=== PATIENT | male | born 1965 | race Caucasian/White ===

== ENCOUNTER → 2016-10-06 | Outpatient (CLI) | payer OTHER ==
--- NOTE | 2016-10-06 08:01 | CT ---
EXAMINATION TYPE: CT brain wo/w con DATE OF EXAM: 10/06/2016 COMPARISON: Previous study dated 10/27/2014 HISTORY: Head injury CT DLP: 2208 mGycm Automated exposure control for dose reduction was used. CONTRAST: CT scan of the head is performed with IV Contrast, patient injected with 100 mL of Omnipaque 300. FINDINGS: Central structures are midline. There is no evidence of hydrocephalus. No acute focal lesion, mass ef fect or midline shift is seen. I do not see evidence of intracranial blood. Following intravenous administration of contrast, I do not see evidence of abnormal enhancement. Visualized portions of the paranasal sinuses and mastoids are clear. No depressed skull fracture is s een. Middle and inner ear structures appear normal. IMPRESSION: Normal CT scan of the brain with and without intravenous contrast.
== END | disposition home or self-care (01) ==
LOC: RADCTMAIN 07:10
PROVIDERS: ATTEND Family Medicine
DX: R11.2 Nausea with vomiting, unspecified (principal); Z87.820 Personal history of traumatic brain injury
CPT/HCPCS: 70470; Q9967

== ENCOUNTER → 2016-10-06 | Outpatient (CLI) | payer OTHER ==
--- NOTE | 2016-10-06 08:28 | XR ---
EXAMINATION TYPE: XR hand complete bilateral, XR wrist complete BILATERAL DATE OF EXAM ORDERED: 10/06/2016 HISTORY: M06.4 inflammatory polyarthropathy. COMPARISON: None. FINDINGS: Both wrists appear normal. There is no fracture or dislocation. The joint spaces are maint ained. The carpal bones are unremarkable. Osseous structures about both hands also appear normal. There is no fracture or dislocation. Joint sp aces are maintained. No erosive lesions are seen. Bone mineral density is maintained. IMPRESSION: NORMAL BILATERAL WRISTS AND HANDS.
[2016-10-06 08:31] LABS: Basophils % (A) 0 %; CH 29.8; CHCM 34.6; Eosinophils # (A) 0.2 k/uL (0-0.7); Eosinophils % (A) 2 %; HCT 49.1 % (39.0-53.0); HDW 2.69; HGB 16.9 gm/dL (13.0-17.5); Luc # (Auto) 0.13; Luc % (Auto) 1; Lymphocytes # (A) 1.9 k/uL (1.0-4.8); Lymphocytes % (A) 20 %; MCH 29.8 pg (25.0-35.0); MCHC 34.5 g/dL (31.0-37.0); MCV 86.4 fL (80.0-100.0); Monocytes # (A) 0.4 k/uL (0-1.0); Monocytes % (A) 4 %; Neutrophils # (A) 6.9 k/uL (1.3-7.7); Neutrophils % (A) 72 %; RBC 5.68 m/uL (4.30-5.90); RDW 12.9 % (11.5-15.5); WBC 9.5 k/uL (3.8-10.6); WBC (Perox) 9.71
[2016-10-06 09:24] LABS: C Reactive Protein 5.7 mg/L (<10.0); Non-African American GFR(MDRD) >60 (>60 ml/min/1.73 sqM)
[2016-10-06 09:30] LABS: Rheumatoid Factor, Qnt <9 IU/mL (<12)
[2016-10-06 11:07] LABS: Erythrocyte Sedimentation Rate 6 mm/hr (0-15)
[2016-10-06 16:06] LABS: ANA w/Reflex to Titer NEGATIVE (NEGATIVE)
[2016-10-07 11:34] LABS: Glucose-6-Phosphate Dehydrogen 10.8 U/g Hgb (7.0-20.5)
== END | disposition home or self-care (01) ==
LOC: RADXRMAIN 07:23
PROVIDERS: ATTEND Internal Medicine Rheumatology
DX: M79.641 Pain in right hand (principal); M79.642 Pain in left hand; M06.4 Inflammatory polyarthropathy; E11.9 Type 2 diabetes mellitus without complications; M54.5 Low back pain; F17.210 Nicotine dependence, cigarettes, uncomplicated; I10 Essential (primary) hypertension
CPT/HCPCS: 70470; 82565; 82955; 85025; 85652; 86038; 86140; 86160; 86200; 86225; 86431

== ENCOUNTER 2016-12-16 11:42 | Inpatient (IN) | payer OTHER ==
[2016-12-16] MEDS ORDERED: NITROGLYCERIN SL TABS 0.4 MG TAB SUBLINGUAL PRN ×2 (11:52→13:17)
[2016-12-16] MEDS ORDERED: MORPHINE SULFATE 4 MG/ML SYRINGE IV PRN (11:52)
[2016-12-16] MEDS ORDERED: HEPARIN SODIUM,PORCINE 5,000 UNIT/ML 1 ML VIAL IV PRN (11:52)
[2016-12-16] MEDS ORDERED: HEPARIN SODIUM,PORCINE 5,000 UNIT/ML 1 ML VIAL IV ONE (11:52)
[2016-12-16] MEDS ORDERED: ASPIRIN 81 MG PO STA (11:52)
[2016-12-16] MEDS ORDERED: HEPARIN SODIUM,PORCINE 5,000 UNIT/ML 1 ML VIAL IV STA (11:53)
--- NOTE | 2016-12-16 11:56 | ED ---
General Adult HPI - General Chief complaint: Chest Pain Stated complaint: Stemi Time Seen by Provider: 12/16/16 11:50 Source: EMS, RN notes reviewed, old records reviewed Mode of arrival: EMS Limitations: no limitations - History of Present Illness Initial comments: This is a 51-year-old male to the ER for evaluation. This patient presents for evaluation regarding chest pain. Anterior chest pain and heaviness which was relieved by nitro in route. Patient has history of high blood pressure and diabetes. No prior history of heart disease. Patient stated this time is chest pain is there but has improved or decreased. Patient has no fever cough or congestion, no significant shortness of breath currently. Symptoms started about a half-hour prior to arrival - Related Data Home Medications Medication Instructions Recorded Confirmed Baclofen [Lioresal] 10 mg PO TID PRN 12/16/16 12/16/16 Hydroxychloroquine Sulfate 200 mg PO BID 12/16/16 12/16/16 [Plaquenil] Lisinopril-Hctz 20-25 mg 1 tab PO DAILY 12/16/16 12/16/16 [Zestoretic 20-25] Pravastatin Sodium [Pravachol] 40 mg PO HS 12/16/16 12/16/16 amLODIPine BESYLATE [Norvasc] 10 mg PO DAILY 12/16/16 12/16/16 Allergies Allergy/AdvReac Type Severity Reaction Status Date / Time No Known Allergies Allergy Verified 12/16/16 11:47 Review of Systems ROS Statement: Those systems with pertinent positive or pertinent negative responses have been documented in the HPI. ROS Other: All systems not noted in ROS Statement are negative. Past Medical History Past Medical History: Diabetes Mellitus, Hyperlipidemia, Hypertension History of Any Multi-Drug Resistant Organisms: None Reported Past Surgical History: No Surgical Hx Reported Past Psychological History: Depression Smoking Status: Current every day smoker Past Alcohol Use History: None Reported Past Drug Use History: None Reported General Exam Limitations: no limitations General appearance: alert, in no apparent distress Head exam: Present: atraumatic, normocephalic, normal inspection Eye exam: Present: normal appearance, PERRL, EOMI. Absent: scleral icterus, conjunctival injection, periorbital swelling ENT exam: Present: normal exam, mucous membranes moist Neck exam: Present: normal inspection. Absent: tenderness, meningismus, lymphadenopathy Respiratory exam: Present: normal lung sounds bilaterally. Absent: respiratory distress, wheezes, rales, rhonchi, stridor Cardiovascular Exam: Present: regular rate, normal rhythm, normal heart sounds. Absent: systolic murmur, diastolic murmur, rubs, gallop, clicks GI/Abdominal exam: Present: soft, normal bowel sounds. Absent: distended, tenderness, guarding, rebound, rigid Extremities exam: Present: normal inspection, full ROM, normal capillary refill. Absent: tenderness, pedal edema, joint swelling, calf tenderness Back exam: Present: normal inspection Neurological exam: Present: alert, oriented X3, CN II-XII intact Psychiatric exam: Present: normal affect, normal mood Skin exam: Present: warm, dry, intact, normal color. Absent: rash Course Vital Signs 12/16/16 12/16/16 12/16/16 11:44 11:47 11:51 Temperature 97.9 F Pulse Rate 61 93 Respiratory 20 20 Rate Blood Pressure 102/50 135/80 O2 Sat by Pulse 97 97 Oximetry 12/16/16 12:00 Temperature Pulse Rate 86 Respiratory Rate Blood Pressure 144/73 O2 Sat by Pulse 98 Oximetry - Reevaluation(s) Reevaluation #1: Code STEMI was paged, patient seen in the ER by cardiac , taken to operating room for PCI EKG Findings - EKG Comments: EKG Findings:: EKG shows normal sinus over 62, pO2 of 60, QRS 160, QTC 410, [address] elevation Medical Decision Making - Medical Decision Making 51 male to the ED co cp history of diabetes and high blood pressure. She has EKG showing ST elevation, [facility] or ST elevation, patient will be taken to emergency room for urgent heart catheterization regarding ST elevated RI - Lab Data Result diagrams: 12/16/16 11:56 12/16/16 11:56 Lab Results 12/16/16 12/16/16 12/16/16 Range/Units 11:56 11:56 11:56 WBC 14.9 H (3.8-10.6) k/uL RBC 5.18 (4.30-5.90) m/uL Hgb 15.8 (13.0-17.5) gm/dL Hct 44.8 (39.0-53.0) % MCV 86.5 (80.0-100.0) fL MCH 30.5 (25.0-35.0) pg MCHC 35.3 (31.0-37.0) g/dL RDW 13.3 (11.5-15.5) % Plt Count 306 (150-450) k/uL Neutrophils % 87 % Lymphocytes % 8 % Monocytes % 3 % Eosinophils % 1 % Basophils % 0 % Neutrophils # 13.0 H (1.3-7.7) k/uL Lymphocytes # 1.2 (1.0-4.8) k/uL Monocytes # 0.5 (0-1.0) k/uL Eosinophils # 0.1 (0-0.7) k/uL Basophils # 0.1 (0-0.2) k/uL PT 10.7 (9.0-12.0) sec INR 1.1 (<1.2) APTT 23.1 (22.0-30.0) sec Sodium 144 (137-145) mmol/L Potassium 4.0 (3.5-5.1) mmol/L Chloride 109 H (98-107) mmol/L Carbon Dioxide 23 (22-30) mmol/L Anion Gap 12 mmol/L BUN 12 (9-20) mg/dL Creatinine 0.59 L (0.66-1.25) mg/dL Est GFR (MDRD) Af Amer >60 (>60 ml/min/1.73 sqM) Est GFR (MDRD) Non-Af >60 (>60 ml/min/1.73 sqM) Glucose 168 H (74-99) mg/dL Calcium 9.8 (8.4-10.2) mg/dL Magnesium 1.7 (1.6-2.3) mg/dL Total Bilirubin 0.4 (0.2-1.3) mg/dL AST 19 (17-59) U/L ALT 36 (21-72) U/L Alkaline Phosphatase 84 (38-126) U/L Total Creatine Kinase (55-170) U/L CK-MB (CK-2) (0.0-2.4) ng/mL CK-MB (CK-2) Rel Index Troponin I (0.000-0.034) ng/mL Total Protein 6.8 (6.3-8.2) g/dL Albumin 4.2 (3.5-5.0) g/dL 12/16/16 Range/Units 11:56 WBC (3.8-10.6) k/uL RBC (4.30-5.90) m/uL Hgb (13.0-17.5) gm/dL Hct (39.0-53.0) % MCV (80.0-100.0) fL MCH (25.0-35.0) pg MCHC (31.0-37.0) g/dL RDW (11.5-15.5) % Plt Count (150-450) k/uL Neutrophils % % Lymphocytes % % Monocytes % % Eosinophils % % Basophils % % Neutrophils # (1.3-7.7) k/uL Lymphocytes # (1.0-4.8) k/uL Monocytes # (0-1.0) k/uL Eosinophils # (0-0.7) k/uL Basophils # (0-0.2) k/uL PT (9.0-12.0) sec INR (<1.2) APTT (22.0-30.0) sec Sodium (137-145) mmol/L Potassium (3.5-5.1) mmol/L Chloride (98-107) mmol/L Carbon Dioxide (22-30) mmol/L Anion Gap mmol/L BUN (9-20) mg/dL Creatinine (0.66-1.25) mg/dL Est GFR (MDRD) Af Amer (>60 ml/min/1.73 sqM) Est GFR (MDRD) Non-Af (>60 ml/min/1.73 sqM) Glucose (74-99) mg/dL Calcium (8.4-10.2) mg/dL Magnesium (1.6-2.3) mg/dL Total Bilirubin (0.2-1.3) mg/dL AST (17-59) U/L ALT (21-72) U/L Alkaline Phosphatase (38-126) U/L Total Creatine Kinase 150 (55-170) U/L CK-MB (CK-2) 1.7 (0.0-2.4) ng/mL CK-MB (CK-2) Rel Index 1.1 Troponin I 0.042 H* (0.000-0.034) ng/mL Total Protein (6.3-8.2) g/dL Albumin (3.5-5.0) g/dL - Radiology Data Radiology results: report reviewed (Chest x-ray is negative for acute disease), image reviewed Critical Care Time Critical Care Time: Yes Total Critical Care Time: 31 Disposition Clinical Impression: ST elevation myocardial infarction (STEMI) Disposition: ADMITTED IP TO THIS HOSP Condition: Serious Referrals: Sari Mcmahan DO [Primary Care Provider] - 1-2 days
[2016-12-16] MEDS: ATORVASTATIN 80 MG TAB PO SCH (11:58)
[2016-12-16 12:08] LABS: Basophils # (A) 0.1 k/uL (0-0.2); Basophils % (A) 0 %; CH 29.5; CHCM 34.3; Eosinophils # (A) 0.1 k/uL (0-0.7); Eosinophils % (A) 1 %; HCT 44.8 % (39.0-53.0); HDW 2.64; HGB 15.8 gm/dL (13.0-17.5); Luc # (Auto) 0.09; Luc % (Auto) 1; Lymphocytes # (A) 1.2 k/uL (1.0-4.8); Lymphocytes % (A) 8 %; MCH 30.5 pg (25.0-35.0); MCHC 35.3 g/dL (31.0-37.0); MCV 86.5 fL (80.0-100.0); Mean Platelet Volume 6.8; Monocytes # (A) 0.5 k/uL (0-1.0); Monocytes % (A) 3 %; Neutrophils % (A) 87 %; RBC 5.18 m/uL (4.30-5.90); RDW 13.3 % (11.5-15.5); WBC 14.9 k/uL (3.8-10.6); WBC (Perox) 14.82
--- NOTE | 2016-12-16 12:14 | XR ---
EXAMINATION TYPE: XR chest 1V portable DATE OF EXAM: 12/16/2016 COMPARISON: Chest x-ray December 24, 2007 HISTORY: Chest pain today. TECHNIQUE: Single AP portable frontal upright view of the chest is obtained. FINDINGS: Improved inspiration is seen on current study. There is no focal air space opacity, pleura l effusion, or pneumothorax seen. The cardiac silhouette size is upper limits of normal. The osseo us structures are intact. IMPRESSION: No acute process.
[2016-12-16] MEDS ORDERED: MIDAZOLAM 2 MG/2 ML VIAL ONE (12:18)
[2016-12-16 12:19] LABS: ALT 36 U/L (21-72); AST 19 U/L (17-59); Alkaline Phosphatase 84 U/L (38-126); Anion Gap 12 mmol/L; Blood Urea Nitrogen 12 mg/dL (9-20); Calcium 9.8 mg/dL (8.4-10.2); Carbon Dioxide 23 mmol/L (22-30); Chloride 109 mmol/L (98-107); Glucose 168 mg/dL (74-99); Magnesium 1.7 mg/dL (1.6-2.3); Non-African American GFR(MDRD) >60 (>60 ml/min/1.73 sqM); Sodium 144 mmol/L (137-145); Total Bilirubin 0.4 mg/dL (0.2-1.3); Total Protein 6.8 g/dL (6.3-8.2)
[2016-12-16] MEDS ORDERED: LIDOCAINE 2% INJ 20 MG/ML SQ ONE (12:22)
[2016-12-16] MEDS ORDERED: MIDAZOLAM 2 MG/2 ML VIAL IV ONE (12:23)
[2016-12-16] MEDS ORDERED: SODIUM CHLORIDE 0.9% 1,000 ML IV ONE (12:23)
[2016-12-16] MEDS ORDERED: BIVALIRUDIN BOLUS 250 MG/50 ML IV ONE (12:30)
[2016-12-16] MEDS ORDERED: BIVALIRUDIN 250 MG in SODIUM CHLORIDE 0.9% 50 ML IV ONE (12:31)
[2016-12-16 12:37] LABS: INR 1.1 (<1.2); Partial Thromboplastin Time 23.1 sec (22.0-30.0); Prothrombin Time 10.7 sec (9.0-12.0)
[2016-12-16 12:46] LABS: Creatine Kinase MB 1.7 ng/mL (0.0-2.4)
[2016-12-16] MEDS ORDERED: NITROGLYCERIN 1000MCG/10ML SYRINGE INTRACORON ONE (12:50)
[2016-12-16 12:53] LABS: Troponin I 0.042 ng/mL (0.000-0.034)
[2016-12-16] MEDS ORDERED: ATROPINE SULFATE 0.1 MG/ML 10ML SYRINGE IV ONE (12:57)
[2016-12-16] MEDS ORDERED: IOHEXOL 350 MG/ML 125ML BOTTLE INJ ONE (13:05)
[2016-12-16] MEDS ORDERED: PRASUGREL 10 MG TAB ONE (13:07)
[2016-12-16] MEDS ORDERED: PRASUGREL 10 MG TAB PO ONE (13:08)
[2016-12-16] MEDS ORDERED: MAG HYDROX/AL HYDROX/SIMETH 30 ML CUP PO PRN (13:17)
[2016-12-16] MEDS ORDERED: RX INFO: IV CONTRAST WAS GIVEN 1 EACH MISC MISCELLANE PRN (13:17)
[2016-12-16] MEDS ORDERED: ATROPINE SULFATE 0.1 MG/ML 10ML SYRINGE IV PRN (13:17)
[2016-12-16] MEDS ORDERED: ZOLPIDEM 5 MG TAB PO PRN (13:17)
--- NOTE | 2016-12-16 13:21 | P.CRDCN ---
History of Present Illness Consult date: 12/16/16 History of present illness: This is a pleasant 51-year-old gentleman with a past medical history significant for diabetes, hypertension, dyslipidemia, presented to the emergency room complaining of chest discomfort. He was found to be an acute inferior ST elevation myocardial infarction but subsequently he underwent an emergent heart catheterization and was found to have an acute total occlusion of the PLV branch of the RCA, critical disease involving the mid left circumflex , and occluded mid LAD. The patient underwent successful stenting of the PLV of RCA with good angiographic results using drug-eluting stent and without any complication. By the end of the procedure, the patient was chest pain-free. The blood pressure has been marginally low. Past Medical History Past Medical History: Diabetes Mellitus, Hyperlipidemia, Hypertension History of Any Multi-Drug Resistant Organisms: None Reported Past Surgical History: No Surgical Hx Reported Past Psychological History: Depression Smoking Status: Current every day smoker Past Alcohol Use History: None Reported Past Drug Use History: None Reported Medications and Allergies Home Medications Medication Instructions Recorded Confirmed Type Baclofen [Lioresal] 10 mg PO TID PRN 12/16/16 12/16/16 History Hydroxychloroquine Sulfate 200 mg PO BID 12/16/16 12/16/16 History [Plaquenil] Lisinopril-Hctz 20-25 mg 1 tab PO DAILY 12/16/16 12/16/16 History [Zestoretic 20-25] Pravastatin Sodium [Pravachol] 40 mg PO HS 12/16/16 12/16/16 History amLODIPine BESYLATE [Norvasc] 10 mg PO DAILY 12/16/16 12/16/16 History Allergies Allergy/AdvReac Type Severity Reaction Status Date / Time No Known Allergies Allergy Verified 12/16/16 11:47 Physical Exam Vitals: Vital Signs Temp Pulse Resp BP Pulse Ox 12/16/16 12:00 86 144/73 98 12/16/16 11:51 93 20 135/80 97 12/16/16 11:47 102/50 12/16/16 11:44 97.9 F 61 20 97 Intake and Output 12/15/16 12/16/16 12/16/16 22:59 06:59 14:59 Intake Total 390.5 Balance 390.5 Intake: IV 390.5 Other: Weight 94.5 kg Patient Weight 08/12/17 06:59 Weight 94.5 kg - Constitutional General appearance: no acute distress - Respiratory Respiratory: bilateral: CTA - Cardiovascular Rhythm: regular Heart sounds: normal: S1, S2 Results 12/16/16 11:56 12/16/16 11:56 Cardiac Enzymes 12/16/16 12/16/16 Range/Units 11:56 11:56 AST 19 (17-59) U/L CK-MB (CK-2) 1.7 (0.0-2.4) ng/mL Troponin I 0.042 H* (0.000-0.034) ng/mL Coagulation 12/16/16 Range/Units 11:56 PT 10.7 (9.0-12.0) sec APTT 23.1 (22.0-30.0) sec CBC 12/16/16 Range/Units 11:56 WBC 14.9 H (3.8-10.6) k/uL RBC 5.18 (4.30-5.90) m/uL Hgb 15.8 (13.0-17.5) gm/dL Hct 44.8 (39.0-53.0) % Plt Count 306 (150-450) k/uL Comprehensive Metabolic Panel 12/16/16 Range/Units 11:56 Sodium 144 (137-145) mmol/L Potassium 4.0 (3.5-5.1) mmol/L Chloride 109 H (98-107) mmol/L Carbon Dioxide 23 (22-30) mmol/L BUN 12 (9-20) mg/dL Creatinine 0.59 L (0.66-1.25) mg/dL Glucose 168 H (74-99) mg/dL Calcium 9.8 (8.4-10.2) mg/dL AST 19 (17-59) U/L ALT 36 (21-72) U/L Alkaline Phosphatase 84 (38-126) U/L Total Protein 6.8 (6.3-8.2) g/dL Albumin 4.2 (3.5-5.0) g/dL Current Medications Generic Name Dose Route Start Last Admin Trade Name Freq PRN Reason Stop Dose Admin Al Hydroxide/Mg Hydroxide 30 ml 12/16/16 13:17 Maalox PO Q4HR PRN Heartburn Aspirin 325 mg 12/17/16 09:00 Aspirin PO DAILY MICHAELA Atorvastatin Calcium 80 mg 12/16/16 21:00 Lipitor PO HS MICHAELA Atropine Sulfate 0.5 mg 12/16/16 13:17 Atropine IV ONCE PRN Symptomatic Bradycardia Lisinopril 10 mg 12/17/16 09:00 Zestril PO DAILY MICHAELA Intake and Output 12/15/16 12/16/16 12/16/16 22:59 06:59 14:59 Intake Total 390.5 Balance 390.5 Intake: IV 390.5 Other: Weight 94.5 kg Patient Weight 12/17/16 06:59 Weight 94.5 kg 12/16/16 11:56 12/16/16 11:56 Assessment and Plan Plan: This is a pleasant 51-year-old gentleman who was diagnosed with acute inferior ST elevation myocardial infarction and underwent stenting of the RCA. We'll continue dual antiplatelet therapy as well as statin. Monitor the blood pressure very closely and hold the metoprolol and lisinopril for any systolic blood pressure below 90. We'll obtain an echocardiogram to assess the LV function and for wall motion abnormalities. The patient down the line need to have a PCI of the LAD.
[2016-12-16] MEDS ORDERED: SODIUM CHLORIDE 0.9% 1,000 ML IV SCH (13:30)
[2016-12-16] MEDS ORDERED: HYDROmorphone 1 MG/ML 1 ML SYRINGE ONE (13:46)
[2016-12-16] MEDS ORDERED: HYDROmorphone 1 MG/ML 1 ML SYRINGE IVP STA (13:57)
[2016-12-16 15:02] LABS: Glucose,Whole Blood 108 mg/dL (75-99)
[2016-12-16 15:47] LABS: Glucose,Whole Blood 112 mg/dL (75-99)
[2016-12-16] MEDS: HEPARIN SODIUM,PORCINE/D5W PMX 25,000 UNIT in DEXTROSE/WATER 1 500ML.BAG IV SCH (15:57)
[2016-12-16] MEDS ORDERED: HYDROcodone/APAP 5-325MG 1 EACH TAB PO PRN (17:11)
[2016-12-16] MEDS ORDERED: BACLOFEN 10 MG TAB PO PRN (17:13)
[2016-12-16 17:22] LABS: Glucose,Whole Blood 102 mg/dL (75-99)
[2016-12-16] MEDS: INSULIN LISPRO (humaLOG) 300 UNIT/3 ML VIAL SQ SCH ×2 (17:55→20:00)
[2016-12-16] MEDS: HYDROmorphone 1 MG/ML 1 ML SYRINGE IVP PRN (17:55)
[2016-12-16 18:54] LABS: Troponin I 59.9 ng/mL (0.000-0.034)
--- NOTE | 2016-12-16 19:36 | ECHOF ---
Referral Reason:stemi MEASUREMENTS -------- HEIGHT: 177.8 cm WEIGHT: 94.3 kg BP: 112/68 RVIDd: 2.3 cm (< 3.3) IVSd: 1.2 cm (0.6 - 1.1) LVIDd: 4.7 cm (3.9 - 5.3) LVPWd: 1.2 cm (0.6 - 1.1) IVSs: 1.7 cm LVIDs: 3.7 cm LVPWs: 1.2 cm LAESV Index (A-L): 28.17 ml/m Ao Diam: 3.0 cm (2.0 - 3.7) AV Cusp: 1.4 cm (1.5 - 2.6) LA Diam: 2.5 cm (2.7 - 3.8) MV E Shailesh: 0.81 m/s MV DecT: 272 ms MV A Shailesh: 0.71 m/s MV E/A Ratio: 1.15 AV maxP.40 mmHg AV meanP.38 mmHg RAP: 5.00 mmHg RVSP: 10.82 mmHg FINDINGS -------- Sinus rhythm. This was a technically adequate study. There is mild concentric left ventricular hypertrophy. Overall left ventricular systolic function is mildly impaired with, an EF between 45 - 50 %. Basal inferior LV wall motion is akinetic. The right ventricle is normal in size and function. Normal LA size by volume 22+/-6 ml/m2. The right atrium is normal in size. 1.5mg of Definity was utilized for enhancement of images Aortic valve is trileaflet and is mildly thickened. There is no evidence of aortic regurgitation. There is mild aortic stenosis present. The mitral valve leaflets are mildly thickened. There is trace to mild mitral regurgitation. Trace tricuspid regurgitation present. There is no evidence of pulmonary hypertension. The right ventricular systolic pressure, as measured by Doppler, is 10.82mmHg. The pulmonic valve was not well visualized. The aortic root size is normal. Normal inferior vena cava with normal inspiratory collapse consistent with estimated right atrial pressure of 5 mmHg. The pericardium is normal. There is no pericardial effusion. CONCLUSIONS -------- 1. Sinus rhythm. 2. There is trace to mild mitral regurgitation. 3. Trace tricuspid regurgitation present. 4. There is no evidence of pulmonary hypertension. 5. The right ventricular systolic pressure, as measured by Doppler, is 10.82mmHg. 6. The pulmonic valve was not well visualized. 7. The aortic root size is normal. 8. There is no pericardial effusion. 9. This was a technically adequate study. 10. There is mild concentric left ventricular hypertrophy. 11. Basal inferior LV wall motion is akinetic. 12. Normal LA size by volume 22+/-6 ml/m2. 13. 1.5mg of Definity was utilized for enhancement of images 14. Aortic valve is trileaflet and is mildly thickened. 15. There is mild aortic stenosis present. 16. The mitral valve leaflets are mildly thickened. CHIEF CREATIVE OFFICER: Jose Juarez RDCS
[2016-12-16 20:00] LABS: Glucose,Whole Blood 170 mg/dL (75-99)
[2016-12-16] MEDS: HYDROXYCHLOROQUINE SULFATE 200 MG TAB PO SCH (20:00)
[2016-12-16] MEDS: INSULIN GLARGINE 100 UNIT/ML 10 ML VIAL SQ SCH (20:06)
[2016-12-16] MEDS ORDERED: Magnesium Replacement Protocol 1 EACH MISC MISCELLANE PRN (20:21)
[2016-12-16 20:53] LABS: Hemoglobin A1C 9.7 % (4.2-6.1)
[2016-12-16] MEDS: MAGNESIUM SULFATE-D5W PMX 1 GM in DEXTROSE/WATER 1 100ML.BAG IVPB SCH ×2 (20:58→22:15)
[2016-12-16] MEDS ORDERED: METOPROLOL TARTRATE 25 MG TAB PO SCH ×3 (21:00)
[2016-12-16] MEDS ORDERED: ATORVASTATIN 80 MG TAB PO SCH (21:00)
[2016-12-16] MEDS: METOPROLOL TARTRATE 12.5 MG TAB PO SCH (21:53)
[2016-12-17] MEDS: HYDROmorphone 1 MG/ML 1 ML SYRINGE IVP PRN ×3 (00:47→20:28)
[2016-12-17 04:34] LABS: Appearance,Urine Clear (Clear); Bilirubin,Urine Negative (Negative); Glucose,Urine (UA) 4+ (Negative); Ketones,Urine Negative (Negative); Leukocyte Esterase,Urine Negative (Negative); Mucus,Urine Occasional /hpf; Nitrite,Urine Negative (Negative); Particle Count 4830; Protein,Urine Negative (Negative); RBC,Urine 1 /hpf (0-5); Specific Gravity,Urine >1.050 (1.001-1.035); Squamous Epithelial Cell,Urine <1 /hpf (0-4); UA Billing (MACRO vs. MICRO) MICRO; Urobilinogen,Urine <2.0 mg/dL (<2.0); WBC,Urine 1 /hpf (0-5)
[2016-12-17 04:49] LABS: Basophils % (A) 0 %; CH 29.7; CHCM 33.7; Eosinophils # (A) 0.2 k/uL (0-0.7); Eosinophils % (A) 2 %; HCT 41.9 % (39.0-53.0); HDW 2.62; HGB 14.2 gm/dL (13.0-17.5); Luc # (Auto) 0.16; Luc % (Auto) 1; Lymphocytes # (A) 2.3 k/uL (1.0-4.8); Lymphocytes % (A) 18 %; MCH 29.9 pg (25.0-35.0); MCHC 33.8 g/dL (31.0-37.0); MCV 88.5 fL (80.0-100.0); Monocytes # (A) 0.6 k/uL (0-1.0); Monocytes % (A) 4 %; Neutrophils # (A) 9.3 k/uL (1.3-7.7); Neutrophils % (A) 74 %; RBC 4.74 m/uL (4.30-5.90); RDW 13.6 % (11.5-15.5); WBC 12.6 k/uL (3.8-10.6); WBC (Perox) 13.57
[2016-12-17 04:59] LABS: Anion Gap 10 mmol/L; Blood Urea Nitrogen 11 mg/dL (9-20); Calcium 9.1 mg/dL (8.4-10.2); Carbon Dioxide 24 mmol/L (22-30); Chloride 107 mmol/L (98-107); Glucose 148 mg/dL (74-99); Non-African American GFR(MDRD) >60 (>60 ml/min/1.73 sqM); Potassium 3.6 mmol/L (3.5-5.1); Sodium 141 mmol/L (137-145)
[2016-12-17] MEDS ORDERED: Potassium Replacement Protocol 1 EACH MISC MISCELLANE PRN (05:14)
[2016-12-17] MEDS ORDERED: POTASSIUM CHLORIDE ER 20 MEQ TAB.ER PO SCH (06:00)
[2016-12-17 07:29] LABS: Glucose,Whole Blood 145 mg/dL (75-99)
[2016-12-17] MEDS: ASPIRIN 325 MG TAB PO SCH (08:20)
[2016-12-17] MEDS: PRASUGREL 10 MG TAB PO SCH (08:20)
[2016-12-17] MEDS: HYDROXYCHLOROQUINE SULFATE 200 MG TAB PO SCH ×2 (08:20→21:48)
[2016-12-17] MEDS: LISINOPRIL 10 MG TAB PO SCH (08:20)
[2016-12-17] MEDS: METOPROLOL TARTRATE 12.5 MG TAB PO SCH ×2 (08:20→21:48)
[2016-12-17] MEDS: NICOTINE 14MG/24HR PATCH TRANSDERM SCH (08:21)
[2016-12-17] MEDS: INSULIN LISPRO (humaLOG) 300 UNIT/3 ML VIAL SQ SCH ×3 (08:22→17:30)
[2016-12-17] MEDS ORDERED: ASPIRIN 325 MG TAB PO SCH ×2 (09:00)
[2016-12-17 09:51] VITALS: BMI 29.9
[2016-12-17 11:45] LABS: Glucose,Whole Blood 228 mg/dL (75-99)
--- NOTE | 2016-12-17 11:50 | HP ---
CHIEF COMPLAINT: Chest pain. HISTORY OF PRESENT ILLNESS: This 56-year-old gentleman with the past medical history of multiple medical problems including diabetes, hypertension, hyperlipidemia and rheumatoid arthritis, being followed by Dr. Reyes in the outpatient, had chest pain. The pain was in the anterior part of the chest which was heavy in character, radiating to the back. The patient got some nitro with some relief. The EKG showed acute hyper inferior wall changes and the patient underwent a cardiac catheterization and stenting by cardiology. The patient was admitted for further evaluation and treatment. There is no history of any fever, rigors or chills. No lightheadedness, dizziness, loss of consciousness or seizures. PAST MEDICAL HISTORY: Diabetes mellitus type 2, hypertension, hyperlipidemia, rheumatoid arthritis. MEDICATIONS PRIOR TO ADMISSION: 1. Norvasc 10 mg p.o. daily. 2. Pravachol 40 mg q.h.s. 3. Plaquenil 200 mg p.o. b.i.d. 4. Lioresal 20 mg t.i.d. p.r.n. ALLERGIES: None. FAMILY HISTORY: History of diabetes mellitus and hypertension in the family. SOCIAL HISTORY: History of current smoking. No history of alcohol intake. REVIEW OF SYSTEMS: ENT: No diminished hearing or vision. CARDIOVASCULAR: As mentioned earlier. RESPIRATORY: As mentioned earlier. GI: No nausea. : No dysuria. NERVOUS SYSTEM: No numbness or weakness. IMMUNOLOGY/ALLERGY: No asthma, hayfever. MUSCULOSKELETAL: As mentioned earlier. HEMATOLOGY: No history of anemia. ENDOCRINE: No history of diabetes or hypothyroidism. CONSTITUTIONAL: noted PSYCHIATRIC: As mentioned earlier. PHYSICAL EXAMINATION: Alert and oriented x3. Pulse 53, blood pressure 92/51, respirations 16, temperature 97.8, pulse ox 96% on room air. HEENT: Conjunctivae normal. Oral mucosa moist. NECK: No jugular venous distention. No thyroid enlargement, no lymph node enlargement. CARDIOVASCULAR: S1/.S2 muffled. RESPIRATIONS: Diminished breath sounds, especially at the bases. Scattered rhonchi. No crackles. ABDOMEN: Soft, nontender. No mass palpable. LEGS: No edema, no swelling. NERVOUS SYSTEM: Higher function as mentioned earlier. Moves all four limbs. No focal motor or sensory deficits. LYMPHATICS. No lymph node palpable in neck or axillae. SKIN: No rash. LABS: WBC 14.9. Otherwise, creatinine 0.59, glucose 169, troponin 0.042. ASSESSMENT: 1. Hyperacute ST segment elevation inferior wall myocardial infarction status post cardiac catheterization and stenting. 2. Troponin 0.042. 3. Diabetes mellitus type 2. 4. History of nicotine dependence. 5. Increased WBC. 6. Hypertension. 7. Hyperlipidemia. 8. History of rheumatoid arthritis. 9. Depression. RECOMMENDATIONS AND DISCUSSION: In this 51-year-old gentleman who presented with multiple complex medical issues, we will monitor the patient closely, continue the current medication, continue symptomatic treatment. Otherwise, will resume the home medications and monitor patient closely. Will continue with current medications. Will repeat the labs. Smoking cessation advised. Closely follow with cardiology. Prognosis guarded because of multiple complex medical issues. Further recommendations to follow. See orders for the details. MTDD
[2016-12-17] MEDS: HEPARIN SODIUM,PORCINE/D5W PMX 25,000 UNIT in DEXTROSE/WATER 1 500ML.BAG IV SCH (13:34)
--- NOTE | 2016-12-17 15:07 | PCN ---
DATE OF SERVICE: 12/16/2016 PERFORMING PHYSICIAN: Don Pham MD, Event Planning Manager PROCEDURE PERFORMED: 1. Selective right and left coronary angiogram. 2. Left heart catheterization. 3. Successful stenting of the PLV branch of the RCA using 3.25 x 18 mm Xience MARQUEZ with good angiographic results. INDICATIONS: This is a pleasant 51-year-old gentleman who is known to have diabetes, hypertension, dyslipidemia who presented to the hospital with chest discomfort and was found to be in acute inferior ST-elevation myocardial infarction. Emergent heart catheterization was recommended. APPROACH: Right common femoral artery. COMPLICATIONS: None. LEVEL OF SEDATION: Moderate with sedation length of 55 minutes. PROCEDURE DESCRIPTION: After obtaining informed consent the patient was brought to the Cardiac Director Ehs. The right femoral artery was cannulated using micropuncture technique. The micropuncture wire was passed easily and then I placed a 6-Surinamese sheath in the right common femoral artery. Subsequently I did selective right and left coronary angiogram using JR4 and JL4.5 catheters. After that I decided to left heart catheterization using 6-Surinamese pigtail catheter and then I did intervene on the RCA. As a matter of fact, intervention on the RCA was performed before the left heart catheterization. The procedure was completed without any complication. SELECTIVE CORONARY ANGIOGRAM: 1. The right coronary artery is a large caliber vessel and is a dominant vessel. The proximal and mid-RCA has mild disease only with RCA distally has mild disease only and bifurcates into PDA and PLV branches The PDA branch appeared to be angiographically normal and the PLV branch appeared to be occluded acutely in the very proximal portion. 2. The left main is angiographically normal. It bifurcates into the left circumflex and left anterior descending artery. 3. The left circumflex is a large caliber vessel and is a nondominant vessel. The proximal circumflex appeared to have mild disease only and gives rise into large OM branch which appeared to have mild disease only. The mid circumflex appeared to be subtotally occluded. The circ becomes small caliber vessel and goes only in the AV groove. 4. The left anterior descending artery: The proximal LAD appeared to be angiographically normal and gives rise into the first diag branch which appeared to be large moderate caliber vessel with mild disease only. The mid- LAD appeared to be occluded in the proximal mid portion on a short segment. HEMODYNAMICS: The left ventricular end-diastolic pressure was 18 mmHg. No gradient was identified across the aortic valve. PCI TO RCA: Anticoagulation was initiated using Angiomax. Subsequently, after that we took KH4 guiding catheter and the right coronary artery was engaged. Whisper wire was used to wire the right coronary artery. Subsequently I did PTCA ballooning initially using 2.0 x 12 and then 3.0 x 12 mm balloon. Subsequently I deployed 3.25 x 18 mm Xience MARQUEZ where the stent was positioned under fluoroscopy guidance and deployed under 14 atmospheres for 20 seconds. The following angiogram showed good angiographic results. The procedure was completed without any complications. CONCLUSION: 1. Acute inferior ST elevation myocardial infarction. 2. Acute total occlusion of the PLV branch of the RCA. 3. Subtotally occluded mid-left circumflex, but it is small caliber vessel and goes only in the AV groove. 4. Chronic total occlusion of the mid-LAD. POSTPROCEDURE MANAGEMENT: 1. PCI of the LAD down the line. 2. Dual antiplatelet therapy and statin. 3. Follow up with the patient. EDWARD
[2016-12-17 17:48] LABS: Glucose,Whole Blood 174 mg/dL (75-99)
--- NOTE | 2016-12-17 19:56 | P.PN ---
Subjective Principal diagnosis: STEMI This is a pleasant 51-year-old gentleman with a past medical history significant for diabetes, hypertension, dyslipidemia, presented to the emergency room complaining of chest discomfort. He was found to be an acute inferior ST elevation myocardial infarction but subsequently he underwent an emergent heart catheterization and was found to have an acute total occlusion of the PLV branch of the RCA, critical disease involving the mid left circumflex , and occluded mid LAD. The patient underwent successful stenting of the PLV of RCA with good angiographic results using drug-eluting stent and without any complication. He needs PCI of the LAD Objective - Vital Signs Vital signs: Vital Signs Temp 97.8 F 12/17/16 18:05 Pulse 60 12/17/16 18:05 Resp 20 12/17/16 18:05 BP 148/93 12/17/16 18:05 Pulse Ox 99 12/17/16 18:05 Intake & Output 12/17/16 12/17/16 12/18/16 06:59 18:59 06:59 Intake Total 1100 900 Output Total 300 900 Balance 800 0 Weight 94.8 kg 94.8 kg Intake: IV 900 Magnesium Sulfate-D5w Pmx 300 1 gm In Dextrose/Water 1 100ml.bag @ 100 mls/hr IVPB Q1H MICHAELA Rx#: [id number] Sodium Chloride 0.9% 1, 600 000 ml @ 100 mls/hr IV . Q10H MICHAELA Rx#:[id number] Intake, IV Titration 100 Amount Sodium Chloride 0.9% 1, 100 000 ml @ 100 mls/hr IV . Q10H MICHAELA Rx#:[id number] Oral 100 900 Output: Urine 300 900 Other: Voiding Method Urinal Urinal # Voids 0 0 # Bowel Movements 1 - Constitutional General appearance: Present: no acute distress - Respiratory Respiratory: bilateral: CTA - Cardiovascular Rhythm: regular Heart sounds: normal: S1, S2 - Labs CBC & Chem 7: 12/17/16 04:19 12/17/16 04:19 Labs: Abnormal Lab Results - Last 24 Hours (Table) 12/16/16 12/16/16 12/17/16 Range/Units 11:56 19:58 04:02 WBC (3.8-10.6) k/uL Neutrophils # (1.3-7.7) k/uL Creatinine (0.66-1.25) mg/dL Glucose (74-99) mg/dL POC Glucose (mg/dL) 170 H (75-99) mg/dL Hemoglobin A1c 9.7 H (4.2-6.1) % Troponin I (0.000-0.034) ng/mL TSH (0.465-4.680) mIU/L Ur Specific [place] >1.050 H (1.001-1.035) Urine Glucose (UA) 4+ H (Negative) Urine Blood Small H (Negative) Urine Mucus Occasional H (None) /hpf 12/17/16 12/17/16 12/17/16 Range/Units 04:19 04:19 04:19 WBC 12.6 H (3.8-10.6) k/uL Neutrophils # 9.3 H (1.3-7.7) k/uL Creatinine 0.59 L (0.66-1.25) mg/dL Glucose 148 H (74-99) mg/dL POC Glucose (mg/dL) (75-99) mg/dL Hemoglobin A1c (4.2-6.1) % Troponin I 42.000 H* (0.000-0.034) ng/mL TSH (0.465-4.680) mIU/L Ur Specific [place] (1.001-1.035) Urine Glucose (UA) (Negative) Urine Blood (Negative) Urine Mucus (None) /hpf 12/17/16 12/17/16 12/17/16 Range/Units 04:19 07:27 11:44 WBC (3.8-10.6) k/uL Neutrophils # (1.3-7.7) k/uL Creatinine (0.66-1.25) mg/dL Glucose (74-99) mg/dL POC Glucose (mg/dL) 145 H 228 H (75-99) mg/dL Hemoglobin A1c (4.2-6.1) % Troponin I (0.000-0.034) ng/mL TSH 0.422 L (0.465-4.680) mIU/L Ur Specific [place] (1.001-1.035) Urine Glucose (UA) (Negative) Urine Blood (Negative) Urine Mucus (None) /hpf 12/17/16 Range/Units 17:29 WBC (3.8-10.6) k/uL Neutrophils # (1.3-7.7) k/uL Creatinine (0.66-1.25) mg/dL Glucose (74-99) mg/dL POC Glucose (mg/dL) 174 H (75-99) mg/dL Hemoglobin A1c (4.2-6.1) % Troponin I (0.000-0.034) ng/mL TSH (0.465-4.680) mIU/L Ur Specific [place] (1.001-1.035) Urine Glucose (UA) (Negative) Urine Blood (Negative) Urine Mucus (None) /hpf Assessment and Plan Plan: This is a pleasant 51-year-old gentleman who was diagnosed with acute inferior ST elevation myocardial infarction and underwent stenting of the RCA. We'll continue dual antiplatelet therapy as well as statin. Monitor the blood pressure very closely and hold the metoprolol and lisinopril for any systolic blood pressure below 90. We'll obtain an echocardiogram to assess the LV function and for wall motion abnormalities. The patient down the line need to have a PCI of the LAD.
[2016-12-17 21:12] LABS: Glucose,Whole Blood 160 mg/dL (75-99)
[2016-12-17] MEDS: INSULIN GLARGINE 100 UNIT/ML 10 ML VIAL SQ SCH (21:47)
[2016-12-18] MEDS: INSULIN LISPRO (humaLOG) 300 UNIT/3 ML VIAL SQ SCH ×5 (00:04→22:25)
[2016-12-18] MEDS: HYDROmorphone 1 MG/ML 1 ML SYRINGE IVP PRN ×3 (03:40→18:54)
[2016-12-18 05:53] LABS: Glucose,Whole Blood 95 mg/dL (75-99)
[2016-12-18 07:26] LABS: CH 30.5; CHCM 33.8; HCT 42.4 % (39.0-53.0); HDW 2.55; HGB 13.7 gm/dL (13.0-17.5); MCH 29.4 pg (25.0-35.0); MCHC 32.4 g/dL (31.0-37.0); MCV 90.9 fL (80.0-100.0); Mean Platelet Volume 7.9; RBC 4.67 m/uL (4.30-5.90); WBC 12.4 k/uL (3.8-10.6)
[2016-12-18 07:41] LABS: Anion Gap 8 mmol/L; Blood Urea Nitrogen 12 mg/dL (9-20); Calcium 9.2 mg/dL (8.4-10.2); Carbon Dioxide 27 mmol/L (22-30); Chloride 108 mmol/L (98-107); Glucose 90 mg/dL (74-99); Non-African American GFR(MDRD) >60 (>60 ml/min/1.73 sqM); Potassium 3.9 mmol/L (3.5-5.1); Sodium 143 mmol/L (137-145)
[2016-12-18] MEDS: METOPROLOL TARTRATE 12.5 MG TAB PO SCH ×2 (08:12→22:25)
[2016-12-18] MEDS: ATORVASTATIN 80 MG TAB PO SCH (08:12)
[2016-12-18] MEDS: HYDROXYCHLOROQUINE SULFATE 200 MG TAB PO SCH ×2 (08:12→22:25)
[2016-12-18] MEDS: NICOTINE 14MG/24HR PATCH TRANSDERM SCH (08:12)
[2016-12-18] MEDS: ASPIRIN 325 MG TAB PO SCH (08:12)
[2016-12-18] MEDS: PRASUGREL 10 MG TAB PO SCH (08:12)
[2016-12-18] MEDS: LISINOPRIL 10 MG TAB PO SCH (08:12)
--- NOTE | 2016-12-18 09:21 | P.PN ---
Subjective Principal diagnosis: STEMI This is a pleasant 51-year-old gentleman with a past medical history significant for diabetes, hypertension, dyslipidemia, presented to the emergency room complaining of chest discomfort. He was found to be an acute inferior ST elevation myocardial infarction but subsequently he underwent an emergent heart catheterization and was found to have an acute total occlusion of the PLV branch of the RCA, critical disease involving the mid left circumflex , and occluded mid LAD. The patient underwent successful stenting of the PLV of RCA with good angiographic results using drug-eluting stent and without any complication. On follow-up with him today, he denies having any chest pain or discomfort or difficulty breathing. He has been maintaining normal sinus mechanism. Objective - Vital Signs Vital signs: Vital Signs Temp 98.1 F 12/18/16 08:00 Pulse 65 12/18/16 08:00 Resp 16 12/18/16 08:00 BP 131/81 12/18/16 08:00 Pulse Ox 97 12/18/16 08:00 Intake & Output 12/17/16 12/18/16 12/18/16 18:59 06:59 18:59 Intake Total 900 300 240 Output Total 900 Balance 0 300 240 Weight 94.8 kg 108 kg Intake: Oral 900 300 240 Output: Urine 900 Other: Voiding Method Urinal Urinal Urinal # Voids 0 2 # Bowel Movements 1 - Constitutional General appearance: Present: no acute distress - Respiratory Respiratory: bilateral: CTA - Cardiovascular Rhythm: regular Heart sounds: normal: S1, S2 - Labs CBC & Chem 7: 12/18/16 07:05 12/18/16 07:05 Labs: Abnormal Lab Results - Last 24 Hours (Table) 12/17/16 12/17/16 12/17/16 Range/Units 04:19 11:44 17:29 WBC (3.8-10.6) k/uL Chloride (98-107) mmol/L Creatinine (0.66-1.25) mg/dL POC Glucose (mg/dL) 228 H 174 H (75-99) mg/dL TSH 0.422 L (0.465-4.680) mIU/L 12/17/16 12/18/16 12/18/16 Range/Units 21:04 07:05 07:05 WBC 12.4 H (3.8-10.6) k/uL Chloride 108 H (98-107) mmol/L Creatinine 0.65 L (0.66-1.25) mg/dL POC Glucose (mg/dL) 160 H (75-99) mg/dL TSH (0.465-4.680) mIU/L Assessment and Plan Plan: This is a pleasant 51-year-old gentleman who was diagnosed with acute inferior ST elevation myocardial infarction and underwent stenting of the RCA. He continues to be asymptomatic. He continues to be in normal sinus mechanism. He continues to be on dual antiplatelet therapy along with a statin. He needs to have a PCI of the LAD either during this admission or as an outpatient.
[2016-12-18 11:54] LABS: Glucose,Whole Blood 205 mg/dL (75-99)
--- NOTE | 2016-12-18 14:23 | PN ---
DATE OF SERVICE: 12/17/2016 This 51-year-old gentleman who was admitted with acute inferior wall myocardial infarction underwent successful stenting of the PLV branch of the RCA. The PCI of the LAD was planned down the line. The patient is dual antiplatelet treatment at this time. Dr. Pham is following the patient closely. PAST MEDICAL HISTORY: Reviewed. Medications are reviewed and include: 1. [place] 5 mg q.6 p.r.n 2. Maalox. 3. Aspirin 325 mg. 4. Lipitor 80 mg. 6. Heparin. 7. Plaquenil. 8. Lantus. 9. Lopressor. PHYSICAL EXAMINATION: The patient is alert and oriented x3. Pulse is 57, blood pressure 120/79, respirations 20, temperature normal, pulse ox 94% on room air. HEENT: Conjunctivae normal. NECK: No jugular venous distention. CARDIOVASCULAR: S1, S2. RESPIRATORY: Breath sounds diminished at the bases. Scattered rhonchi and crackles. ABDOMEN: Soft, nontender. LEGS: No edema, no swelling. NERVOUS SYSTEM: No focal deficits. LABS: CBC within normal limits and glucose 148. UA noted. Otherwise troponin 42. ASSESSMENT: 1. Acute inferior wall myocardial infarction with ST-segment elevation, status post cardiac catheterization and stenting of the PLV branch of the right coronary artery. 2. Left ascending artery stenosis. 3. Troponin 42, acute myocardial infarction. 4. Diabetes mellitus type 2. 5. History of nicotine dependence. 6. Increased WBC. 7. Hypertension. 8. Hyperlipidemia. 9. History of rheumatoid arthritis. RECOMMENDATIONS AND DISCUSSION: I recommend to continue the current medications, continue symptomatic treatment. Otherwise continue with antiplatelet agents. Also recommend TSH. Other than that increase ambulation. Further recommendations per Cardiology. Guarded prognosis. Further recommendations to follow. See orders for details. MTDD
[2016-12-18 16:45] LABS: Glucose,Whole Blood 245 mg/dL (75-99)
[2016-12-18 21:16] LABS: Glucose,Whole Blood 208 mg/dL (75-99)
[2016-12-18] MEDS: INSULIN GLARGINE 100 UNIT/ML 10 ML VIAL SQ SCH (22:25)
[2016-12-19] MEDS: HYDROmorphone 1 MG/ML 1 ML SYRINGE IVP PRN ×4 (00:56→22:49)
[2016-12-19 06:23] LABS: Glucose,Whole Blood 100 mg/dL (75-99)
[2016-12-19] MEDS: INSULIN LISPRO (humaLOG) 300 UNIT/3 ML VIAL SQ SCH ×4 (06:53→20:53)
[2016-12-19] MEDS: ASPIRIN 325 MG TAB PO SCH (07:54)
[2016-12-19] MEDS: HYDROXYCHLOROQUINE SULFATE 200 MG TAB PO SCH ×2 (07:55→20:34)
[2016-12-19] MEDS: METOPROLOL TARTRATE 12.5 MG TAB PO SCH ×2 (07:55→20:35)
[2016-12-19] MEDS: LISINOPRIL 10 MG TAB PO SCH (07:55)
[2016-12-19] MEDS: ATORVASTATIN 80 MG TAB PO SCH (07:55)
[2016-12-19] MEDS: PRASUGREL 10 MG TAB PO SCH (07:55)
[2016-12-19] MEDS: NICOTINE 14MG/24HR PATCH TRANSDERM SCH (07:56)
[2016-12-19] MEDS ORDERED: SODIUM CHLORIDE 0.9% 1,000 ML in EMPTY BAG 1 BAG IV ONE (08:41)
[2016-12-19] MEDS ORDERED: ATORVASTATIN 80 MG TAB PO STA (08:41)
[2016-12-19] MEDS ORDERED: NITROGLYCERIN SL TABS 0.4 MG TAB SUBLINGUAL PRN ×2 (08:41→14:40)
[2016-12-19] MEDS ORDERED: ALPRAZolam 0.25 MG TAB PO PRN (08:41)
[2016-12-19] MEDS ORDERED: ALPRAZolam 0.5 MG TAB PO PRN (08:41)
[2016-12-19] MEDS ORDERED: ASPIRIN 325 MG TAB PO STA (08:41)
[2016-12-19 12:05] LABS: Glucose,Whole Blood 84 mg/dL (75-99)
[2016-12-19] MEDS ORDERED: LIDOCAINE 2% INJ 20 MG/ML (20 ML MDV) ONE (13:26)
[2016-12-19] MEDS ORDERED: MIDAZOLAM 2 MG/2 ML VIAL ONE (13:37)
--- NOTE | 2016-12-19 13:37 | PN ---
DATE OF SERVICE: 12/18/2016 This 51-year-old gentleman who was admitted with acute inferior wall myocardial infarction, had cardiac catheterization and stenting of the PLV branch. Cardiology is following the patient closely and tentatively planning LAD stenting during this patient or as outpatient. No chest pain, no palpitations. No fever. On exam, alert and oriented x3. Pulse 72, blood pressure 126/74, respirations 18 , temperature 97.7, pulse ox 98% on room air. HEENT: Conjunctivae normal. NECK: No jugular venous distention. CARDIOVASCULAR: S1, S2. RESPIRATORY: Breath sounds diminished at the bases. No rhonchi, no crackles. ABDOMEN: Soft, nontender. LEGS: No edema, no swelling. NERVOUS SYSTEM: No focal deficits. LABS: WBC 12.4. ASSESSMENT: 1. Acute inferior wall myocardial infarction with ST-segment elevation status post cardiac catheterization and stenting of the PLV branch of right coronary artery. 2. Left anterior coronary artery disease stenosis. 3. Troponin 42, acute myocardial infarction. 4. Diabetes mellitus type 2. 5. Nicotine dependence. RECOMMENDATIONS AND DISCUSSION: I recommend to continue the current medications, continue symptomatic treatment. Continue with antiplatelet agents. Monitor blood sugars closely. Further recommendations to follow. MTDD
[2016-12-19] MEDS ORDERED: MIDAZOLAM 2 MG/2 ML VIAL IV ONE (13:57)
[2016-12-19] MEDS ORDERED: LIDOCAINE 2% INJ 20 MG/ML SQ ONE (13:59)
[2016-12-19] MEDS ORDERED: BIVALIRUDIN BOLUS 250 MG/50 ML IV ONE (14:00)
[2016-12-19] MEDS ORDERED: BIVALIRUDIN 250 MG in SODIUM CHLORIDE 0.9% 50 ML IV ONE ×2 (14:01→14:36)
[2016-12-19] MEDS ORDERED: IV FLUID CONTINUATION 1,000 ML IV ONE (14:07)
[2016-12-19] MEDS ORDERED: MAG HYDROX/AL HYDROX/SIMETH 30 ML CUP PO PRN (14:40)
[2016-12-19] MEDS ORDERED: RX INFO: IV CONTRAST WAS GIVEN 1 EACH MISC MISCELLANE PRN (14:40)
[2016-12-19] MEDS ORDERED: ZOLPIDEM 5 MG TAB PO PRN (14:40)
[2016-12-19] MEDS ORDERED: ATROPINE SULFATE 0.1 MG/ML 10ML SYRINGE IV PRN (14:40)
[2016-12-19] MEDS ORDERED: SODIUM CHLORIDE 0.9% 1,000 ML IV SCH (14:45)
[2016-12-19] MEDS ORDERED: IOHEXOL 350 MG/ML 125ML BOTTLE INJ ONE (14:59)
[2016-12-19 17:14] LABS: Glucose,Whole Blood 78 mg/dL (75-99)
[2016-12-19] MEDS: INSULIN GLARGINE 100 UNIT/ML 10 ML VIAL SQ SCH (20:46)
[2016-12-19 20:54] LABS: Glucose,Whole Blood 206 mg/dL (75-99)
[2016-12-20 06:08] LABS: Glucose,Whole Blood 95 mg/dL (75-99)
[2016-12-20 06:38] LABS: Non-African American GFR(MDRD) >60 (>60 ml/min/1.73 sqM)
[2016-12-20] MEDS: INSULIN LISPRO (humaLOG) 300 UNIT/3 ML VIAL SQ SCH (06:45)
[2016-12-20] MEDS: ASPIRIN 325 MG TAB PO SCH (07:48)
[2016-12-20] MEDS: ATORVASTATIN 80 MG TAB PO SCH (07:48)
[2016-12-20] MEDS: HYDROXYCHLOROQUINE SULFATE 200 MG TAB PO SCH (07:49)
[2016-12-20] MEDS: PRASUGREL 10 MG TAB PO SCH (07:50)
[2016-12-20] MEDS: LISINOPRIL 10 MG TAB PO SCH (07:50)
[2016-12-20] MEDS: METOPROLOL TARTRATE 12.5 MG TAB PO SCH (07:50)
[2016-12-20] MEDS: NICOTINE 14MG/24HR PATCH TRANSDERM SCH (07:50)
--- NOTE | 2016-12-20 07:51 | PN ---
DATE OF SERVICE: 12/19/16 This 51-year-old gentleman who was admitted with acute inferior myocardial infarction also scheduled to have second procedure today. No chest pain. No palpitations. No fever. PHYSICAL EXAMINATION: On exam, the patient is alert and oriented times three. Pulse 59. Blood pressure 130/67. Respiratory rate 18. Temperature normal. Pulse ox 97% . HEENT: Conjunctivae normal. Neck: No JVD. CARDIOVASCULAR: S1, S2. Respiratory: Breath sounds diminished at the bases. A few scattered rhonchi. Abdomen soft, nontender. LEGS: No edema. No swelling. POTATO PANCAKE FRIER: No focal deficits. LABS: Noted. ASSESSMENT: 1. Acute inferior wall myocardial infarction with ST segment elevation to the RCA. 2. LAD stenosis. 3. Troponin 42, acute myocardial infarction. 4. Diabetes mellitus, Type 2. 5. History of nicotine dependence. RECOMMENDATIONS AND DISCUSSION: Recommend to continue the current medications, continue symptomatic treatment, otherwise we will monitor the patient closely. Guarded prognosis because of multiple medical issues. Further recommendations to follow. EMILD
[2016-12-20 08:00] VITALS: BP 130/78; PULSE 70; RESP 16; TEMP 98.6
--- NOTE | 2016-12-20 09:46 | P.PN ---
Subjective Principal diagnosis: STEMI This is a pleasant 51-year-old gentleman with a past medical history significant for diabetes, hypertension, dyslipidemia, presented to the emergency room complaining of chest discomfort. He was found to be an acute inferior ST elevation myocardial infarction but subsequently he underwent an emergent heart catheterization and was found to have an acute total occlusion of the PLV branch of the RCA, critical disease involving the mid left circumflex , and occluded mid LAD. The patient underwent successful stenting of the PLV of RCA with good angiographic results using drug-eluting stent and without any complication. On follow-up with him today, he denies having any chest pain or discomfort or difficulty breathing. He has been maintaining normal sinus mechanism. From the cardiovascular standpoint of view, the patient can be discharged home. Objective - Vital Signs Vital signs: Vital Signs Temp 98.6 F 12/20/16 07:59 Pulse 70 12/20/16 07:59 Resp 16 12/20/16 08:00 BP 130/78 12/20/16 07:59 Pulse Ox 95 12/20/16 07:59 Intake & Output 12/19/16 12/20/16 12/20/16 18:59 06:59 18:59 Intake Total 545 180 240 Output Total 1200 300 Balance -655 -120 240 Weight 105.8 kg Intake: IV 145 Oral 400 180 240 Output: Urine 1200 300 Other: Voiding Method Urinal Urinal Urinal # Voids 1 - Constitutional General appearance: Present: no acute distress - Respiratory Respiratory: bilateral: CTA - Cardiovascular Rhythm: regular Heart sounds: normal: S1, S2 - Labs CBC & Chem 7: 12/18/16 07:05 12/20/16 05:31 Labs: Abnormal Lab Results - Last 24 Hours (Table) 12/19/16 12/20/16 Range/Units 20:52 05:31 Creatinine 0.60 L (0.66-1.25) mg/dL POC Glucose (mg/dL) 206 H (75-99) mg/dL Assessment and Plan Plan: This is a pleasant 51-year-old gentleman who was diagnosed with acute inferior ST elevation myocardial infarction and underwent stenting of the RCA. He continues to be asymptomatic. He continues to be in normal sinus mechanism. He continues to be on dual antiplatelet therapy along with a statin. The patient can be discharged home.
[2016-12-20 11:39] LABS: Glucose,Whole Blood 189 mg/dL (75-99)
--- NOTE | 2016-12-20 12:45 | PTCA ---
DATE OF PROCEDURE: 12/19/2016 PROCEDURE PERFORMED: Attempted balloon angioplasty of the mid left anterior descending artery. INDICATION: This is a pleasant 51-year-old gentleman who presented to the hospital with acute inferior ST-elevation myocardial infarction and underwent interventional heart catheterization and was found to have occluded PLV branch of the RCA where he underwent successful stenting of that branch. He was found to have also chronic total occlusion of the mid LAD on a short segment. He was brought today to undergo percutaneous coronary intervention. APPROACH: Right common femoral artery. COMPLICATION: None. LEVEL OF SEDATION: Moderate with a sedation length of 42 minutes. PROCEDURE DESCRIPTION: After obtaining an informed consent, the patient was brought to the Cardiac Wares Sorter. Right common femoral artery was cannulated using micropuncture technique, micropuncture wire passed easily. Then I placed a 6 Kazakh sheath. After that, I did engage the left main using a JL4 guiding catheter. After that , I entered crossing the total occlusion of the mid LAD using initially an 0.14 Whisper wire then 0.14 choice PT wire, then 0.14 filter wire and with all these wires, I was unable to cross that chronic total occlusion, so I decided to stop. The procedure was completed without any complication. POST-PROCEDURE MANAGEMENT: 1. Stress test as an outpatient to define for ischemia in the anterior wall. 2. Follow up with the patient. EDWARD
[2016-12-22] MEDS ORDERED: CLOPIDOGREL 75 MG TAB PO SCH (09:00)
--- NOTE | 2016-12-23 18:00 | DS ---
FINAL DIAGNOSES: 1. Acute inferior wall myocardial infarction, ST segment elevation status post cardiac catheterization and stent to the RCA and attempted angioplasty of the mid LAD. 2. Troponin 42, acute myocardial infarction. 3. Diabetes mellitus, Type 2. 4. History of nicotine dependence. DISCHARGE DISPOSITION: The patient is being discharged in stable condition with guarded prognosis. HISTORY OF PRESENT ILLNESS: This 51-year-old gentleman with past medical history of multiple medical problems being followed by Dr. Mcmahan in the outpatient setting admitted with chest pain. Myocardial infarction. The patient underwent cardiac catheterization and stenting of the RCA and attempted PTBA of the LAD was also done by Dr. Pham, recommended outpatient follow-up. The lesion could not be crossed because of the chronic total occlusion. On exam, vital signs are stable. CARDIOVASCULAR: S1, S2 muffled. Abdomen soft. Nervous system: No focal deficits. The patient is being discharged in stable condition with guarded prognosis with the following advice and medications: DISCHARGE ADVICE AND MEDICATIONS: 1. Diet is cardiac. 2. Activity limited until follow-up. 3. Follow-up with Dr. Pham as mentioned earlier. 4. Follow-up with Dr. Mcmahan as advised. 5. Ecotrin 320 mg daily. 6. Lipitor 80 mg daily. 7. Lioresal 10 mg t.i.d. prn. 8. Plaquenil 200 mg po b.i.d. 9. Lantus 8 units subcu q.h.s. 10. Zestril 10 mg daily. 11. Lopressor 12.5 mg po b.i.d. 12. Habitrol 14 daily. 13. Nitro prn. 14. Effient 10 mg po daily. MTDD
== END 2016-12-20 13:34 | disposition home or self-care (01) | DRG 247 ==
LOC: EC 11:42 → 6ICU 11:52 → EC 12:11 → 6SEL 12-17 17:49
PROVIDERS: ADMIT Hospitalist; ATTEND Hospitalist
PROC: B2111ZZ Fluoroscopy of Multiple Coronary Arteries using Low Osmolar Contrast (ICD-10-PCS; 2016-12-16)
PROC: B2151ZZ Fluoroscopy of Left Heart using Low Osmolar Contrast (ICD-10-PCS; 2016-12-16)
PROC: 027034Z Dilation of Coronary Artery, One Artery with Drug-eluting Intraluminal Device, Percutaneous Approach (ICD-10-PCS; principal; 2016-12-16 12:07)
PROC: 4A023N7 Measurement of Cardiac Sampling and Pressure, Left Heart, Percutaneous Approach (ICD-10-PCS; 2016-12-16 12:07)
PROC: B2101ZZ Fluoroscopy of Single Coronary Artery using Low Osmolar Contrast (ICD-10-PCS; 2016-12-19)
DX: I21.19 ST elevation (STEMI) myocardial infarction involving other coronary artery of inferior wall (principal); I25.82 Chronic total occlusion of coronary artery; E11.9 Type 2 diabetes mellitus without complications; I10 Essential (primary) hypertension; M06.9 Rheumatoid arthritis, unspecified; I25.10 Atherosclerotic heart disease of native coronary artery without angina pectoris; E78.5 Hyperlipidemia, unspecified; F17.200 Nicotine dependence, unspecified, uncomplicated; Z79.899 Other long term (current) drug therapy; Z83.3 Family history of diabetes mellitus; Z82.49 Family history of ischemic heart disease and other diseases of the circulatory system; Z71.3 Dietary counseling and surveillance; Z71.6 Tobacco abuse counseling; Z86.59 Personal history of other mental and behavioral disorders
CPT/HCPCS: 36415; 71010; 80048; 80053; 81001; 82550; 82553; 82565; 83036; 83735; 84439; 84443; 84484; 85025; 85027; 85610; 85730; 93005; 93306; 93458; 99291

== ENCOUNTER → 2018-06-11 | Outpatient (CLI) | payer OTHER ==
[2018-06-11 15:32] LABS: HCT 46.9 % (39.0-53.0); HGB 15.4 gm/dL (13.0-17.5); MCH 29.3 pg (25.0-35.0); MCHC 32.8 g/dL (31.0-37.0); MCV 89.4 fL (80.0-100.0); Mean Platelet Volume 6.7; Platelet Count 267 k/uL (150-450); RBC 5.25 m/uL (4.30-5.90); RDW 13.3 % (11.5-15.5); WBC 10.4 k/uL (3.8-10.6)
[2018-06-11 15:40] LABS: Anion Gap 8 mmol/L; Blood Urea Nitrogen 22 mg/dL (9-20); Carbon Dioxide 26 mmol/L (22-30); Chloride 106 mmol/L (98-107); Potassium 4.6 mmol/L (3.5-5.1); Sodium 140 mmol/L (137-145)
== END | disposition home or self-care (01) ==
LOC: LABPAT 13:33
PROVIDERS: ATTEND Internal Medicine Interventional Cardiology
DX: Z01.812 Encounter for preprocedural laboratory examination (principal); I25.10 Atherosclerotic heart disease of native coronary artery without angina pectoris; I10 Essential (primary) hypertension; E78.1 Pure hyperglyceridemia; R07.9 Chest pain, unspecified
CPT/HCPCS: 36415; 80051; 82565; 84520; 85027

== ENCOUNTER 2018-06-22 08:46 | Day surgery (SDC) | payer OTHER ==
[~2018-06-22 08:46] MED LIST: ALPRAZolam 0.25 MG TAB PO PRN; ALPRAZolam 0.5 MG TAB PO PRN; ASPIRIN 325 MG TAB PO STA; ATORVASTATIN 80 MG TAB PO STA; NITROGLYCERIN SL TABS 0.4 MG TAB SUBLINGUAL PRN; SODIUM CHLORIDE 0.9% 1,000 ML in EMPTY BAG 1 BAG IV ONE
[2018-06-22 09:35] LABS: Glucose,Whole Blood 174 mg/dL (75-99)
[2018-06-22] MEDS ORDERED: VERAPAMIL 2.5 MG/ML 2 ML AMP ONE (10:21)
[2018-06-22] MEDS ORDERED: LIDOCAINE 1% INJ 10MG/ML (20 ML MDV) ONE (10:21)
[2018-06-22] MEDS ORDERED: HEPARIN SODIUM 1,000 UN/ML (10ML VL) ONE ×2 (10:21→11:20)
[2018-06-22] MEDS ORDERED: MIDAZOLAM 2 MG/2 ML VIAL IVP ONE (10:29)
[2018-06-22] MEDS ORDERED: LIDOCAINE 1% INJ 10MG/ML (20 ML MDV) SQ ONE (10:31)
[2018-06-22] MEDS ORDERED: VERAPAMIL SYRINGE (5 MG/10 ML) INTRAARTER ONE (10:33)
[2018-06-22] MEDS ORDERED: HEPARIN SODIUM 1,000 UN/ML (10ML VL) IV ONE ×2 (10:34→11:27)
[2018-06-22] MEDS ORDERED: CLOPIDOGREL 75 MG TAB ONE (10:52)
[2018-06-22] MEDS ORDERED: CLOPIDOGREL 75 MG TAB PO ONE (10:53)
[2018-06-22] MEDS ORDERED: IOPAMIDOL-370 100ML BTL INJ ONE ×2 (11:08→11:47)
[2018-06-22] MEDS: MIDAZOLAM 2 MG/2 ML VIAL IVP ONE ×2 (11:21→11:43)
[2018-06-22] MEDS: NITROGLYCERIN 1000MCG/10ML SYRINGE INTRACORON ONE ×2 (11:30→11:45)
[2018-06-22] MEDS ORDERED: NITROGLYCERIN SL TABS 0.4 MG TAB SUBLINGUAL PRN (11:56)
[2018-06-22] MEDS ORDERED: MAG HYDROX/AL HYDROX/SIMETH 30 ML CUP PO PRN (11:56)
[2018-06-22] MEDS ORDERED: RX INFO: IV CONTRAST WAS GIVEN 1 EACH MISC MISCELLANE PRN (11:56)
[2018-06-22] MEDS ORDERED: ATROPINE SULFATE 0.1 MG/ML 10ML SYRINGE IV PRN (11:56)
[2018-06-22] MEDS ORDERED: ZOLPIDEM 5 MG TAB PO PRN (11:56)
[2018-06-22] MEDS ORDERED: SODIUM CHLORIDE 0.9% 1,000 ML IV SCH (12:00)
--- NOTE | 2018-06-22 13:36 | CC ---
CARDIAC CATHETERIZATION REPORT DATE OF SERVICE: 06/22/2018 PERFORMING PHYSICIAN: Don Pham MD, Title Examiner. PROCEDURE PERFORMED: 1. Selective right and left coronary angiogram. 2. Left heart catheterization. 3. Successful stenting of the first diagonal branch of the LAD using 2.0 x 15 mm [place] drug-eluting stent with reduction of stenosis from 70% to 0%. INDICATION: This is a very pleasant 52-year-old gentleman with known history of coronary artery disease and prior stenting of the PLV branch of the right coronary artery which was performed in 2017 in the setting of acute inferior ST-elevation myocardial infarction, known chronic total occlusion of the mid LAD, was experiencing recently intermittent episodes of chest discomfort concerning for angina. The chest discomfort is of new onset and exertional related. Because of that, a heart catheterization was advised. APPROACH: Right radial artery. COMPLICATION: None. LEVEL OF SEDATION: Moderate with sedation length of 62 minutes. PROCEDURE DESCRIPTION: After obtaining an informed consent, the patient was brought to the cardiac production laborer. The right radial artery was cannulated using micropuncture technique, the micropuncture wire passed easily, then I placed a 6-Sammarinese sheath in the right radial artery. After that I gave the patient 10,000 units of heparin IV and 2 mg of verapamil IA. I did after that selective right and left coronary angiogram using JR4 and JL3.5 catheters. Left heart catheterization was performed using 6-Sammarinese pigtail catheter. After that, I did intervene on the the diagonal branch of the LAD. Please see a separate paragraph for that. SELECTIVE CORONARY ANGIOGRAM: 1. The right coronary artery is a large caliber vessel and it is a dominant vessel. It is a tortuous vessel. The RCA has mild disease only. Distally bifurcates into PDA and PLV branches. The PDA branch of the RCA has intermediate disease only and the PLV branch of the RCA is stented and the stent is patent. The rest of the PLV has mild diffuse disease only. 2. The left main is a large caliber vessel and it has mild disease only. It bifurcates into the circumflex and left anterior descending artery. 3. The left circumflex is a large caliber vessel. It is a nondominant vessel. The proximal circumflex has mild disease only. It gives rise into a large OM branch which appeared to be angiographically normal. The circumflex after that has critical disease in the midportion, but the circumflex only and AV groove circumflex does not give any OM branch or feeds myocardium. 4. The LAD, the proximal LAD appeared to be angiographically normal. It gives rise into the first diagonal branch which is a large caliber vessel and appeared to have a lesion in the range of 70% in the proximal portion. The LAD after that is chronically occluded and fills by ipsilateral and contralateral collaterals. HEMODYNAMICS: The left ventricular end-diastolic pressure was 12 mmHg without significant gradient across the aortic valve. PCI OF THE DIAGONAL: Anticoagulation was initiated using heparin and with continuous ACT monitoring throughout the procedure. I gave the patient additional 3000 units throughout the procedure. I did engage initially the left main using JL 3.5 guide. I did wire the diagonal using a run-through wire. I attempted advancing balloon to the diagonal, but the balloon will not make the turn to the proximal diagonal, which is tortuous and angulated about 90 degree. I attempted using the balloon using a GuideLiner and I was unable. Because of that, I decided to stop and change my guide into a better backup support guide and extra backup support guide. At that point, I did use the XB 3 guide. Subsequently I did wire the diagonal again using a run-through wire and also using a whisper wire as a carlos wire. I did after that balloon angioplasty of the diagonal using 2.5 x 12 mm balloon before I deployed 2.0 x 15 mm [place] drug-eluting stent where the stent was positioned under fluoroscopy guidance and deployed under 20 atmospheres for 20 seconds, making the stent about 2.5 in diameter. The following angiogram showed excellent angiographic results. I attempted crossing the LAD again using a whisper wire and using filter XT wire, but I was unable and I decided to stop. No complication reported. CONCLUSION: 1. Patent stent in the PLV branch of the RCA from 2017. 2. Severe disease involving the first diagonal branch of the LAD, which is a large diagonal branch. 3. Chronic total occlusion of the mid LAD which is known from before. 4. Successful stenting of the first diagonal branch of the LAD using 2.0 x 15 mm [place] drug-eluting stent with good angiographic results and without any complication. POSTPROCEDURE MANAGEMENT: 1. Dual anti-platelet therapy. 2. Risk factors modifications. 3. Follow up with the patient. MMODL / IJN: [id number] /
--- NOTE | 2018-06-22 14:06 | LTR ---
DATE OF SERVICE: 06/22/[address] Mcmahan Mr. Jeff Krishnan underwent successful stenting of the diagonal branch of the LAD with good angiographic results and without any complication. I want to thank you for allowing us to participate in his care and please do not hesitate to call for any question or concerns. Sincerely, MMSUSANL / IJN: [id number] /
[2018-06-22] MEDS: ISOSORBIDE MONONITRATE ER 30 MG TAB.ER.24H PO SCH (15:03)
[2018-06-22 16:56] VITALS: BMI 33.8
[2018-06-22 16:57] LABS: Glucose,Whole Blood 178 mg/dL (75-99)
[2018-06-22 20:48] LABS: Glucose,Whole Blood 177 mg/dL (75-99)
[2018-06-22] MEDS ORDERED: FLUoxetine HCL 20 MG CAP PO SCH (21:00)
[2018-06-22] MEDS ORDERED: INSULIN DETEMIR (LEVEMIR) 100 UNIT/ML SYR SQ SCH (21:00)
[2018-06-22] MEDS ORDERED: HYDROmorphone 0.5 MG/0.5 ML SYRINGE IVP STA (21:22)
[2018-06-23 03:27] VITALS: TEMP 99.7
[2018-06-23 05:50] LABS: Glucose,Whole Blood 114 mg/dL (75-99)
[2018-06-23 06:50] LABS: Basophils % (A) 0 %; Eosinophils # (A) 0.1 k/uL (0-0.7); Eosinophils % (A) 1 %; HCT 46.1 % (39.0-53.0); HGB 15.4 gm/dL (13.0-17.5); Lymphocytes # (A) 1.1 k/uL (1.0-4.8); Lymphocytes % (A) 9 %; MCH 29.5 pg (25.0-35.0); MCHC 33.4 g/dL (31.0-37.0); MCV 88.4 fL (80.0-100.0); Mean Platelet Volume 7.5; Monocytes # (A) 0.7 k/uL (0-1.0); Monocytes % (A) 5 %; Neutrophils # (A) 10.2 k/uL (1.3-7.7); Neutrophils % (A) 83 %; Platelet Count 196 k/uL (150-450); RBC 5.22 m/uL (4.30-5.90); RDW 13.3 % (11.5-15.5); WBC 12.2 k/uL (3.8-10.6)
[2018-06-23 07:09] LABS: Anion Gap 9 mmol/L; Blood Urea Nitrogen 13 mg/dL (9-20); Carbon Dioxide 23 mmol/L (22-30); Chloride 108 mmol/L (98-107); Glucose 118 mg/dL (74-99); Sodium 140 mmol/L (137-145)
[2018-06-23] MEDS: ISOSORBIDE MONONITRATE ER 30 MG TAB.ER.24H PO SCH (08:39)
[2018-06-23] MEDS ORDERED: LISINOPRIL 10 MG TAB PO SCH (09:00)
[2018-06-23] MEDS ORDERED: ASPIRIN 325 MG TAB PO SCH (09:00)
[2018-06-23] MEDS ORDERED: CLOPIDOGREL 75 MG TAB PO SCH (09:00)
[2018-06-23] MEDS ORDERED: METOPROLOL TARTRATE 25 MG TAB PO SCH (09:00)
[2018-06-23] MEDS ORDERED: ATORVASTATIN 80 MG TAB PO SCH (09:00)
[2018-06-23] MEDS ORDERED: ISOSORBIDE MONONITRATE ER 30 MG TAB.ER.24H PO SCH (09:00)
[2018-06-23 09:01] VITALS: BP 152/77; PULSE 70; RESP 18
--- NOTE | 2018-06-23 09:58 | DS ---
DISCHARGE SUMMARY ADMISSION DATE: June 22, 2018. DISCHARGE DATE: June 23, 2018 BRIEF HISTORY: This is a pleasant 52-year-old gentleman with history of coronary artery disease and prior stenting of the PLV branch of the RCA as well as known chronic total occlusion of the mid LAD, was experiencing symptoms of chest discomfort concerning for angina. Yesterday, he underwent heart catheterization and was found to have severe disease involving the first diagonal branch which was a large diagonal branch of the LAD, which was stented with good angiographic results and without any complication. The patient is going to be discharged home on dual anti-platelet therapy and I will follow up with the patient in the office next week. MMODL / IJN: [id number] /
== END 2018-06-23 10:12 | disposition home or self-care (01) ==
LOC: CATHCVL 08:46 → 3SCARD 16:13 → CATHCVL 06-23 10:12
PROVIDERS: ATTEND Internal Medicine Interventional Cardiology
DX: I25.110 Atherosclerotic heart disease of native coronary artery with unstable angina pectoris (principal); I25.82 Chronic total occlusion of coronary artery; I77.1 Stricture of artery; I10 Essential (primary) hypertension; I25.2 Old myocardial infarction; F17.210 Nicotine dependence, cigarettes, uncomplicated; E78.5 Hyperlipidemia, unspecified; E11.9 Type 2 diabetes mellitus without complications; Z79.4 Long term (current) use of insulin; Z95.5 Presence of coronary angioplasty implant and graft; Z79.84 Long term (current) use of oral hypoglycemic drugs; Z79.02 Long term (current) use of antithrombotics/antiplatelets; Z79.82 Long term (current) use of aspirin; Z79.899 Other long term (current) drug therapy
CPT/HCPCS: 94760; 93458; 80048; 85025; C9600; C1769 ×3; C1887 ×4; C1725; C1894; C1874; J2250; J2001; J1644; J1170; Q9967

== ENCOUNTER → 2019-06-04 | Outpatient (CLI) | payer OTHER ==
[2019-06-04 18:01] LABS: Chol/HDL Ratio 5.31; LDL Cholesterol,Calculated 36.4 mg/dL (0.0-131.0); VLDL Calculation 75.6 mg/dL (5.00-40.00)
== END | disposition home or self-care (01) ==
LOC: LABWHC1 10:11
PROVIDERS: ATTEND Nurse Practitioner Adult Health
DX: E78.2 Mixed hyperlipidemia (principal)
CPT/HCPCS: 36415; 80061; 82550; 84450; 84460

== ENCOUNTER 2020-08-16 04:27 | Inpatient (IN) | payer OTHER ==
[2020-08-16 04:33] LABS: Glucose,Whole Blood 276 mg/dL (75-99)
[2020-08-16] MEDS ORDERED: MORPHINE SULFATE 4 MG/ML SYRINGE IVP PRN (04:35)
[2020-08-16] MEDS ORDERED: NITROGLYCERIN-D5W PMX 50 MG in DEXTROSE/WATER 1 250ML.BAG IV STA (04:35)
[2020-08-16] MEDS ORDERED: PIPERACILLIN-TAZOBACTAM 3.375 GM in SODIUM CHLORIDE 0.9% 100 ML IVPB STA (04:48)
[2020-08-16 05:01] LABS: Basophils # (A) 0.2 k/uL (0-0.2); Basophils % (A) 1 %; Eosinophils # (A) 0.2 k/uL (0-0.7); Eosinophils % (A) 1 %; HGB 15.8 gm/dL (13.0-17.5); Lymphocytes # (A) 2.3 k/uL (1.0-4.8); Lymphocytes % (A) 12 %; MCH 30.3 pg (25.0-35.0); MCHC 33.6 g/dL (31.0-37.0); MCV 90.1 fL (80.0-100.0); Mean Platelet Volume 7.5; Monocytes # (A) 0.7 k/uL (0-1.0); Monocytes % (A) 4 %; Neutrophils # (A) 15.4 k/uL (1.3-7.7); Neutrophils % (A) 81 %; Platelet Count 433 k/uL (150-450); RBC 5.21 m/uL (4.30-5.90); RDW 13.3 % (11.5-15.5)
[2020-08-16] MEDS ORDERED: EPINEPHrine 10 ML SYRINGE (0.1 MG/ML) ONE (05:01)
[2020-08-16] MEDS ORDERED: ATROPINE SULFATE 0.1 MG/ML 10ML SYRINGE ONE (05:01)
[2020-08-16] MEDS ORDERED: SODIUM BICARB 8.4% 50 ML SYR (1 MEQ/ML) ONE ×2 (05:01→16:00)
[2020-08-16] MEDS ORDERED: ETOMIDATE 2 MG/ML 10 ML VIAL ONE (05:05)
[2020-08-16] MEDS ORDERED: SUCCINYLCHOLINE CHLORIDE VIAL 200 MG/10 ML VIAL IV ONE (05:05)
--- NOTE | 2020-08-16 05:09 | XR ---
EXAM: XR Chest, 1 View CLINICAL HISTORY: Dyspnea. TECHNIQUE: Frontal view of the chest. COMPARISON: 12/16/2016. FINDINGS: Lungs: Diffuse patchy airspace disease is noted throughout both lungs worrisome for bilateral pneumonias, possibly atypical pneumonia such as Covid-19 pneumonia. Pleural space: No pleural effusions. No pneumothorax. Heart: Cardiomegaly. Mediastinum: Unremarkable. Bones/joints: Osteopenia. IMPRESSION: 1. Diffuse patchy airspace disease worrisome for bilateral pneumonias, including Covid-19 pneumonia. 2. Cardiomegaly. 3. Osteopenia. 4. No pleural effusions.
[2020-08-16] MEDS ORDERED: MORPHINE SULFATE 4 MG/ML SYRINGE IV STA (05:14)
[2020-08-16] MEDS ORDERED: ROCURONIUM 10 MG/ML (5 ML VIAL) IV STA (05:14)
[2020-08-16] MEDS ORDERED: LORazepam 2 MG/ML INJ IV STA (05:14)
[2020-08-16 05:20] LABS: AST 72 U/L (17-59); African American GFR (CKD) >90 (>60 ml/min/1.73 sqM); Albumin 3.2 g/dL (3.5-5.0); Alkaline Phosphatase 229 U/L (38-126); Anion Gap 19 mmol/L; Blood Urea Nitrogen 15 mg/dL (9-20); Calcium 8.8 mg/dL (8.4-10.2); Carbon Dioxide 19 mmol/L (22-30); Chloride 103 mmol/L (98-107); Glucose 304 mg/dL (74-99); Magnesium 2.4 mg/dL (1.6-2.3); Non-African American GFR(CKD) >90 (>60 ml/min/1.73 sqM); Potassium 3.5 mmol/L (3.5-5.1); Sodium 141 mmol/L (137-145); Total Bilirubin 0.9 mg/dL (0.2-1.3); Total Protein 6.3 g/dL (6.3-8.2)
[2020-08-16 05:26] LABS: ALT 36 U/L (4-49)
[2020-08-16 05:35] LABS: INR 1.2 (<1.2); Partial Thromboplastin Time 22.2 sec (22.0-30.0); Prothrombin Time 12.2 sec (9.0-12.0)
[2020-08-16 05:42] LABS: D-Dimer >34.10 mg/L FEU (<0.60)
[2020-08-16 05:45] LABS: ABG Base Excess -14.9 mmol/L; ABG HCO3 17 mmol/L (21-25); ABG TCO2 20 mmol/L (19-24); Allen Test Performed? Yes
[2020-08-16] MEDS: NOREPINEPHRINE 32 MG in SODIUM CHLORIDE 0.9% 218 ML IV ONE ×2 (05:49→13:40)
[2020-08-16 05:54] LABS: ABG PCO2 82 mmHg (35-45); ABG PH 6.93 (7.35-7.45); ABG PO2 46 mmHg (83-108)
--- NOTE | 2020-08-16 06:00 | XR ---
EXAM: XR Chest, 1 View CLINICAL HISTORY: Evaluate endotracheal tube placement. TECHNIQUE: Frontal view of the chest. COMPARISON: Earlier study of 08/16/2020. FINDINGS: Lungs: Bilateral patchy airspace disease compatible with bilateral pneumonias, similar to that noted on the previous study. Pleural space: Unremarkable. No pneumothorax. Heart: Cardiomegaly. Mediastinum: Unremarkable. Bones/joints: Unremarkable. Tubes, lines and devices: Endotracheal tube is noted in place with tip approximately 3 cm above the la, in good position per NG tube is noted in place with its tip below diaphragm in good position. IMPRESSION: 1. Endotracheal and NG tubes are noted in place in good position. 2. Diffuse bilateral consolidation compatible with bilateral pneumonias, possibly atypical pneumonia such as Covid-19 pneumonia, unchanged.
[2020-08-16] MEDS ORDERED: SODIUM CHLORIDE 0.9% 1,000 ML IV STA (06:10)
[2020-08-16] MEDS ORDERED: SODIUM CHLORIDE 0.9% 1,000 ML IV ONE ×3 (06:10→08:05)
[2020-08-16] MEDS ORDERED: NALOXONE 0.4 MG/ML 1 ML VIAL IV PRN (06:32)
[2020-08-16] MEDS ORDERED: ACETAMINOPHEN SUPPOSITORY 650 MG SUPP RECTAL PRN (06:32)
[2020-08-16] MEDS ORDERED: INSULIN REGULAR 100 UNIT/ML VIAL SQ STA (06:40)
--- NOTE | 2020-08-16 06:40 | ED ---
SOB HPI - General Chief Complaint: Shortness of Breath Stated Complaint: LU Time Seen by Provider: 08/16/20 04:35 Source: EMS Mode of arrival: EMS Limitations: physical limitation - History of Present Illness Initial Comments: Patient is a 54-year-old man brought by ambulance to be evaluated for severe dyspnea. The patient reportedly had tested positive for chronic virus last week. Patient is not able to give any history due to severe dyspnea. EMS arrived and found the pulse oximetry reading nearly 50%. They started patient on NIPPV , gave albuterol treatment and transported here. MD Complaint: shortness of breath -: hour(s) Consistency: constant Improves With: nothing Worsens With: lying flat Context: other (Coronavirus) Associated Symptoms: cough Treatments Prior to Arrival: oxygen, bronchodilator, NIPPV - Related Data Home Oxygen Therapy: No Home Medications Medication Instructions Recorded Confirmed Clopidogrel [Plavix] 75 mg PO DAILY 06/20/18 08/16/20 Isosorbide Mononitrate [Isosorbide 30 mg PO DAILY 06/20/18 08/16/20 Mononitrate ER] Aspirin EC [Ecotrin Low Dose] 81 mg PO DAILY 08/16/20 08/16/20 Empagliflozin [Jardiance] 10 mg PO DAILY 08/16/20 08/16/20 Hydrocodone/Acetaminophen [[place] 1 tab PO Q6HR PRN 08/16/20 08/16/20 7.5-325] Insulin Degludec [Tresiba 60 units SQ AC-BID 08/16/20 08/16/20 Flextouch U-100] Pioglitazone [Actos] 15 mg PO AC-BID 08/16/20 08/16/20 metFORMIN HCL ER [Glucophage Xr] 1,000 mg PO AC-BID 08/16/20 08/16/20 Previous Rx's Medication Instructions Recorded Atorvastatin [Lipitor] 80 mg PO DAILY #30 tab 12/20/16 lisinopriL [Zestril] 10 mg PO DAILY #30 tab 12/20/16 Allergies Allergy/AdvReac Type Severity Reaction Status Date / Time No Known Allergies Allergy Verified 06/20/18 12:24 Review of Systems ROS Statement: Those systems with pertinent positive or pertinent negative responses have been documented in the HPI. ROS Other: All systems not noted in ROS Statement are negative. Limitations: ROS unobtainable due to patients medical condition Past Medical History Past Medical History: Diabetes Mellitus, Hyperlipidemia, Hypertension, Rheumatoid Arthritis (RA) Additional Past Medical History / Comment(s): IDDM type II, neuropathy bilateral feet, pancreatitis, RA bilateral hands affected. History of Any Multi-Drug Resistant Organisms: None Reported Past Surgical History: Heart Catheterization With Stent Additional Past Surgical History / Comment(s): PCI with stent to PLV of RCA Past Anesthesia/Blood Transfusion Reactions: No Reported Reaction Date of Last Stent Placement:: 12/16/16 Past Psychological History: Depression Past Alcohol Use History: None Reported Past Drug Use History: None Reported - Past Family History Father Family Medical History: Diabetes Mellitus, Hypertension, Myocardial Infarction (ME) Additional Family Medical History / Comment(s): Father had a ME at the age of 77yrs. Mother Family Medical History: Dementia, Hypertension General Exam Limitations: no limitations General appearance: alert, in distress Head exam: Present: atraumatic, normocephalic Eye exam: Present: normal appearance. Absent: scleral icterus, conjunctival injection ENT exam: Present: mucous membranes dry Neck exam: Present: normal inspection, full ROM. Absent: tenderness Respiratory exam: Present: respiratory distress, rhonchi, accessory muscle use Cardiovascular Exam: Present: normal rhythm, tachycardia, systolic murmur. Absent: diastolic murmur, rubs, gallop GI/Abdominal exam: Present: soft. Absent: distended, tenderness, guarding, rebound, rigid, pulsatile mass Extremities exam: Present: normal inspection. Absent: normal capillary refill, pedal edema, calf tenderness Back exam: Present: normal inspection Neurological exam: Present: alert. Absent: motor sensory deficit Skin exam: Present: intact, diaphoretic, mottled. Absent: rash Course Vital Signs 08/16/20 08/16/20 08/16/20 04:28 04:40 04:45 Temperature 96.8 F L Pulse Rate 149 H 149 H 144 H Respiratory 52 H 51 H 51 H Rate Blood Pressure 142/109 105/78 97/86 O2 Sat by Pulse 70 L 75 L Oximetry 08/16/20 08/16/20 08/16/20 04:50 04:55 05:00 Temperature Pulse Rate 144 H 144 H 80 Respiratory 53 H 54 H 34 H Rate Blood Pressure 166/28 111/26 154/113 O2 Sat by Pulse 72 L 76 L 33 L Oximetry 08/16/20 08/16/20 08/16/20 05:05 05:10 05:15 Temperature Pulse Rate 168 H 140 H Respiratory 86 H 30 H 38 H Rate Blood Pressure 109/99 143/116 125/97 O2 Sat by Pulse 61 L 55 L 56 L Oximetry 08/16/20 08/16/20 08/16/20 05:20 05:25 05:35 Temperature Pulse Rate 186 H 124 H Respiratory 108 H 16 123 H Rate Blood Pressure 116/77 231/169 98/72 O2 Sat by Pulse 81 L 52 L Oximetry 08/16/20 08/16/20 08/16/20 05:40 06:30 07:00 Temperature Pulse Rate 165 H 154 H 152 H Respiratory 27 H 32 H 32 H Rate Blood Pressure 193/129 167/108 148/114 O2 Sat by Pulse 90 L 91 L Oximetry 08/16/20 08/16/20 08/16/20 07:20 07:25 07:30 Temperature Pulse Rate 154 H 154 H 154 H Respiratory 36 H 36 H 34 H Rate Blood Pressure 152/79 147/94 143/89 O2 Sat by Pulse 91 L 91 L 91 L Oximetry 08/16/20 08/16/20 08/16/20 07:44 09:21 10:05 Temperature Pulse Rate 154 H 156 H 151 H Respiratory 24 24 30 H Rate Blood Pressure 137/100 124/87 110/80 O2 Sat by Pulse 90 L 90 L 92 L Oximetry 08/16/20 08/16/20 08/16/20 10:17 10:55 11:00 Temperature 97.6 F Pulse Rate 151 H 149 H 147 H Respiratory 24 24 24 Rate Blood Pressure 102/78 101/77 104/78 O2 Sat by Pulse 93 L 92 L 90 L Oximetry 08/16/20 08/16/20 08/16/20 11:40 14:00 14:35 Temperature Pulse Rate 146 H 135 H 134 H Respiratory 24 18 24 Rate Blood Pressure 98/74 73/61 80/64 O2 Sat by Pulse 90 L 91 L 92 L Oximetry 08/16/20 14:51 Temperature Pulse Rate 133 H Respiratory 18 Rate Blood Pressure 74/59 O2 Sat by Pulse 92 L Oximetry Procedures - Central Line Placement Right Femoral Consent Obtained: emergent situation Patient Placed on Monitor/Pulse Ox: Yes Prep: mask, gown, gloves Central Line Prep: Chlorhexidine scrub Local Anesthesia Used: Lidocaine 1% Central Line Lumen Inserted: triple Bloods Obtained for Lab: Yes Central Line Position: good blood return, all ports aspirated, flushed, capped, sutured in place with nylon Dressing Applied: Tegaderm Patient Tolerated Procedure: well Complications: none - Intubation Sedative: Etomidate Mg Given: 20 Laryngoscope: other (Glidescope) ET Tube Size: 8 ET Tube Uncuffed: No Tube Placement Confirmation: visualized tube passing through cords, equal breath sounds bilaterally, no breath sounds over epigastrium, confirmation by capnometry Patient Tolerated Procedure: well Intubation Complications: none - Sepsis Sepsis Focused Exam #1 Sepsis Focused Exam Date: 08/16/20 Sepsis Focused Exam Time: 07:35 Sepsis Focused Exam Complete: Yes Vital Signs & RN Notes Reviewed: Yes Capillary Refill: < 2 Seconds: Fingers Peripheral Pulses: Normal: Radial (R) Skin Color: Flushed Respiratory Exam: rhonchi Cardiovascular Exam: tachycardia, normal heart sounds Medical Decision Making - Medical Decision Making I did discuss the patient's case with family. He apparently had this positive for chronic lumbar is between 1 and 2 weeks ago. He was short of breath yesterday but resisted coming to the hospital. She eventually phoned EMS when he was no longer able to resist coming in. I informed them of the extremely grave prognosis at this point. Fluids based on IBW - Lab Data Result diagrams: 08/17/20 04:00 08/17/20 04:00 Lab Results 08/16/20 08/16/20 08/16/20 Range/Units 04:32 04:47 04:47 WBC 19.0 H (3.8-10.6) k/uL RBC 5.21 (4.30-5.90) m/uL Hgb 15.8 (13.0-17.5) gm/dL Hct 47.0 (39.0-53.0) % MCV 90.1 (80.0-100.0) fL MCH 30.3 (25.0-35.0) pg MCHC 33.6 (31.0-37.0) g/dL RDW 13.3 (11.5-15.5) % Plt Count 433 (150-450) k/uL MPV 7.5 Neutrophils % 81 % Lymphocytes % 12 % Monocytes % 4 % Eosinophils % 1 % Basophils % 1 % Neutrophils # 15.4 H (1.3-7.7) k/uL Lymphocytes # 2.3 (1.0-4.8) k/uL Monocytes # 0.7 (0-1.0) k/uL Eosinophils # 0.2 (0-0.7) k/uL Basophils # 0.2 (0-0.2) k/uL PT 12.2 H (9.0-12.0) sec INR 1.2 H (<1.2) APTT 22.2 (22.0-30.0) sec D-Dimer >34.10 H (<0.60) mg/L FEU Sample Site ABG pH (7.35-7.45) ABG pCO2 (35-45) mmHg ABG pO2 (83-108) mmHg ABG HCO3 (21-25) mmol/L ABG Total CO2 (19-24) mmol/L ABG O2 Saturation (94-97) % ABG Base Excess mmol/L Reggie Test FiO2 % Sodium (137-145) mmol/L Potassium (3.5-5.1) mmol/L Chloride (98-107) mmol/L Carbon Dioxide (22-30) mmol/L Anion Gap mmol/L BUN (9-20) mg/dL Creatinine (0.66-1.25) mg/dL Est GFR (CKD-EPI)AfAm (>60 ml/min/1.73 sqM) Est GFR (CKD-EPI)NonAf (>60 ml/min/1.73 sqM) Glucose (74-99) mg/dL POC Glucose (mg/dL) 276 H (75-99) mg/dL POC Glu Maternal Fetal Physician Zane [place] Ac Sepsis Rflx Plasma Lactic Acid Ino (0.7-2.0) mmol/L Calcium (8.4-10.2) mg/dL Magnesium (1.6-2.3) mg/dL Total Bilirubin (0.2-1.3) mg/dL AST (17-59) U/L ALT (4-49) U/L Alkaline Phosphatase (38-126) U/L Lactate Dehydrogenase (313-618) U/L Troponin I (0.000-0.034) ng/mL C-Reactive Protein (<10.0) mg/L NT-Pro-B Natriuret Pep pg/mL Total Protein (6.3-8.2) g/dL Albumin (3.5-5.0) g/dL Procalcitonin (0.02-0.09) ng/mL 08/16/20 08/16/20 08/16/20 Range/Units 04:47 04:47 04:47 WBC (3.8-10.6) k/uL RBC (4.30-5.90) m/uL Hgb (13.0-17.5) gm/dL Hct (39.0-53.0) % MCV (80.0-100.0) fL MCH (25.0-35.0) pg MCHC (31.0-37.0) g/dL RDW (11.5-15.5) % Plt Count (150-450) k/uL MPV Neutrophils % % Lymphocytes % % Monocytes % % Eosinophils % % Basophils % % Neutrophils # (1.3-7.7) k/uL Lymphocytes # (1.0-4.8) k/uL Monocytes # (0-1.0) k/uL Eosinophils # (0-0.7) k/uL Basophils # (0-0.2) k/uL PT (9.0-12.0) sec INR (<1.2) APTT (22.0-30.0) sec D-Dimer (<0.60) mg/L FEU Sample Site ABG pH (7.35-7.45) ABG pCO2 (35-45) mmHg ABG pO2 (83-108) mmHg ABG HCO3 (21-25) mmol/L ABG Total CO2 (19-24) mmol/L ABG O2 Saturation (94-97) % ABG Base Excess mmol/L Reggie Test FiO2 % Sodium 141 (137-145) mmol/L Potassium 3.5 (3.5-5.1) mmol/L Chloride 103 (98-107) mmol/L Carbon Dioxide 19 L (22-30) mmol/L Anion Gap 19 mmol/L BUN 15 (9-20) mg/dL Creatinine 0.89 (0.66-1.25) mg/dL Est GFR (CKD-EPI)AfAm >90 (>60 ml/min/1.73 sqM) Est GFR (CKD-EPI)NonAf >90 (>60 ml/min/1.73 sqM) Glucose 304 H (74-99) mg/dL POC Glucose (mg/dL) (75-99) mg/dL POC Glu Maternal Fetal Physician ID Lactic Ac Sepsis Rflx Plasma Lactic Acid Ino 11.1 H* (0.7-2.0) mmol/L Calcium 8.8 (8.4-10.2) mg/dL Magnesium 2.4 H (1.6-2.3) mg/dL Total Bilirubin 0.9 (0.2-1.3) mg/dL AST 72 H (17-59) U/L ALT 36 (4-49) U/L Alkaline Phosphatase 229 H (38-126) U/L Lactate Dehydrogenase (313-618) U/L Troponin I 0.989 H* (0.000-0.034) ng/mL C-Reactive Protein (<10.0) mg/L NT-Pro-B Natriuret Pep pg/mL Total Protein 6.3 (6.3-8.2) g/dL Albumin 3.2 L (3.5-5.0) g/dL Procalcitonin (0.02-0.09) ng/mL 08/16/20 08/16/20 08/16/20 Range/Units 04:47 04:47 04:47 WBC (3.8-10.6) k/uL RBC (4.30-5.90) m/uL Hgb (13.0-17.5) gm/dL Hct (39.0-53.0) % MCV (80.0-100.0) fL MCH (25.0-35.0) pg MCHC (31.0-37.0) g/dL RDW (11.5-15.5) % Plt Count (150-450) k/uL MPV Neutrophils % % Lymphocytes % % Monocytes % % Eosinophils % % Basophils % % Neutrophils # (1.3-7.7) k/uL Lymphocytes # (1.0-4.8) k/uL Monocytes # (0-1.0) k/uL Eosinophils # (0-0.7) k/uL Basophils # (0-0.2) k/uL PT (9.0-12.0) sec INR (<1.2) APTT (22.0-30.0) sec D-Dimer (<0.60) mg/L FEU Sample Site ABG pH (7.35-7.45) ABG pCO2 (35-45) mmHg ABG pO2 (83-108) mmHg ABG HCO3 (21-25) mmol/L ABG Total CO2 (19-24) mmol/L ABG O2 Saturation (94-97) % ABG Base Excess mmol/L Reggie Test FiO2 % Sodium (137-145) mmol/L Potassium (3.5-5.1) mmol/L Chloride (98-107) mmol/L Carbon Dioxide (22-30) mmol/L Anion Gap mmol/L BUN (9-20) mg/dL Creatinine (0.66-1.25) mg/dL Est GFR (CKD-EPI)AfAm (>60 ml/min/1.73 sqM) Est GFR (CKD-EPI)NonAf (>60 ml/min/1.73 sqM) Glucose (74-99) mg/dL POC Glucose (mg/dL) (75-99) mg/dL POC Glu Maternal Fetal Physician ID Lactic Ac Sepsis Rflx Plasma Lactic Acid Ino (0.7-2.0) mmol/L Calcium (8.4-10.2) mg/dL Magnesium (1.6-2.3) mg/dL Total Bilirubin (0.2-1.3) mg/dL AST (17-59) U/L ALT (4-49) U/L Alkaline Phosphatase (38-126) U/L Lactate Dehydrogenase 1793 H (313-618) U/L Troponin I (0.000-0.034) ng/mL C-Reactive Protein 174.6 H (<10.0) mg/L NT-Pro-B Natriuret Pep 3240 pg/mL Total Protein (6.3-8.2) g/dL Albumin (3.5-5.0) g/dL Procalcitonin 0.16 H (0.02-0.09) ng/mL 08/16/20 08/16/20 Range/Units 05:39 05:40 WBC (3.8-10.6) k/uL RBC (4.30-5.90) m/uL Hgb (13.0-17.5) gm/dL Hct (39.0-53.0) % MCV (80.0-100.0) fL MCH (25.0-35.0) pg MCHC (31.0-37.0) g/dL RDW (11.5-15.5) % Plt Count (150-450) k/uL MPV Neutrophils % % Lymphocytes % % Monocytes % % Eosinophils % % Basophils % % Neutrophils # (1.3-7.7) k/uL Lymphocytes # (1.0-4.8) k/uL Monocytes # (0-1.0) k/uL Eosinophils # (0-0.7) k/uL Basophils # (0-0.2) k/uL PT (9.0-12.0) sec INR (<1.2) APTT (22.0-30.0) sec D-Dimer (<0.60) mg/L FEU Sample Site rfem ABG pH 6.93 L* (7.35-7.45) ABG pCO2 82 H* (35-45) mmHg ABG pO2 46 L* (83-108) mmHg ABG HCO3 17 L (21-25) mmol/L ABG Total CO2 20 (19-24) mmol/L ABG O2 Saturation 51.0 L (94-97) % ABG Base Excess -14.9 mmol/L Reggie Test Yes FiO2 100 % Sodium (137-145) mmol/L Potassium (3.5-5.1) mmol/L Chloride (98-107) mmol/L Carbon Dioxide (22-30) mmol/L Anion Gap mmol/L BUN (9-20) mg/dL Creatinine (0.66-1.25) mg/dL Est GFR (CKD-EPI)AfAm (>60 ml/min/1.73 sqM) Est GFR (CKD-EPI)NonAf (>60 ml/min/1.73 sqM) Glucose (74-99) mg/dL POC Glucose (mg/dL) (75-99) mg/dL POC Glu Maternal Fetal Physician ID Lactic Ac Sepsis Rflx Y Plasma Lactic Acid Ino (0.7-2.0) mmol/L Calcium (8.4-10.2) mg/dL Magnesium (1.6-2.3) mg/dL Total Bilirubin (0.2-1.3) mg/dL AST (17-59) U/L ALT (4-49) U/L Alkaline Phosphatase (38-126) U/L Lactate Dehydrogenase (313-618) U/L Troponin I (0.000-0.034) ng/mL C-Reactive Protein (<10.0) mg/L NT-Pro-B Natriuret Pep pg/mL Total Protein (6.3-8.2) g/dL Albumin (3.5-5.0) g/dL Procalcitonin (0.02-0.09) ng/mL Critical Care Time Critical Care Time: Yes (75 minutes) Disposition Clinical Impression: Pneumonia due to COVID-19 virus, Acute respiratory failure, Lactic acidosis, Elevated troponin I level, Elevated d-dimer Disposition: ADMITTED IP TO THIS HOSP Condition: Critical
[2020-08-16] MEDS ORDERED: DEXTROSE 5% IN WATER 1,000 ML with SODIUM BICARB (1 MEQ/ML) 150 ML IV SCH (06:45)
[2020-08-16 07:51] LABS: C Reactive Protein 174.6 mg/L (<10.0)
[2020-08-16] MEDS: FAMOTIDINE 20 MG/2 ML VIAL IV SCH ×2 (08:09→21:09)
[2020-08-16] MEDS ORDERED: HEPARIN SODIUM 1,000 UN/ML (10ML VL) MISCELLANE ONE (08:15)
[2020-08-16 08:52] LABS: Appearance,Urine Clear (Clear); Bilirubin,Urine Negative (Negative); Blood,Urine Small (Negative); Color,Urine Yellow; Glucose,Urine (UA) 4+ (Negative); Hyaline Casts,Urine 1 /lpf (0-2); Ketones,Urine Negative (Negative); Leukocyte Esterase,Urine Negative (Negative); Mucus,Urine Rare /hpf; Nitrite,Urine Negative (Negative); Protein,Urine 1+ (Negative); RBC,Urine 2 /hpf (0-5); Specific Gravity,Urine 1.033 (1.001-1.035); WBC,Urine 4 /hpf (0-5)
[2020-08-16] MEDS ORDERED: TOCILIZUMAB 800 MG in SODIUM CHLORIDE 0.9% 60 ML IV ONE (09:00)
[2020-08-16] MEDS ORDERED: DEXAMETHASONE SOD PHOSPHATE 10 MG/ML 1 ML VIAL IV SCH (09:00)
[2020-08-16] MEDS: CISATRACURIUM 200 MG in SODIUM CHLORIDE 0.9% 180 ML IV SCH (09:03)
[2020-08-16] MEDS ORDERED: ENOXAPARIN 60 MG/0.6 ML SYRINGE SQ SCH ×2 (09:30→18:00)
[2020-08-16 10:41] LABS: ABG Base Excess -9.3 mmol/L; ABG HCO3 23 mmol/L (21-25); ABG PO2 91 mmHg (83-108)
[2020-08-16 10:52] LABS: ABG PH 7.06 (7.35-7.45)
[2020-08-16 10:53] LABS: ABG PCO2 86 mmHg (35-45)
--- NOTE | 2020-08-16 10:53 | P.CNPUL ---
History of Present Illness Consult date: 08/16/20 Requesting physician: Sd Valente Reason for consult: dyspnea, hypoxemia, abnormal CXR/CT Chief complaint: COVID 19 pneumonia, severe hypoxic respiratory failure History of present illness: 54-year-old white male patient with past medical history of hypertension, hyperlipidemia, diabetes mellitus type 2, nicotine dependence the status of which is unknown at this time, coronary artery disease with stenting, morbid obesity, who arrived in the emergency department on 08/16/2020 at 420 7 in the morning per EMS for evaluation of severe hypoxic respiratory failure, when the EMS arrived patient's pulse ox was reading nearly 50%, patient was placed on BiPAP support, given albuterol treatments and transported to the hospital, patient was reportedly tested positive for COVID 19 last week. Repeat COVID 19 PCR on 08/16/2020 came back positive. Chest x-ray showed diffuse patchy airspace disease cardiomegaly. Patient blood work showed white blood cell count of 19, hemoglobin of 15.8, d-dimer was greater than 34.1, sodium was 141, potassium is 3.5, chloride is 103, CO2 is 19, B1 is 15, creatinine 0.89, plasma lactic acid was 11.1, AST was 72, ALT was 36, alk phos was 229, LDH was 1793, troponin was 0.989, CRP was 174.6, proBNP was 3240, pro-calcitonin level was 0.16, he eventually failed BiPAP support, he was emergently intubated, and he suffered multiple episodes of cardiac arrest with loss of pulse requiring CPR and the multiple rounds of epinephrine, he was given a liter in fluid boluses, he is currently intubated, he is on assist-control mode of ventilation with a rate of 32, tidal vitamins 500, FiO2 100% and PEEP of 16, his blood gases from earlier this morning showed pO2 of 46, pCO2 of 82, and pH of 6.93. 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 No sedation has been started yet, and bicarbonate infusion will be started with D5 and 3 A of bicarb at a rate of 75 ML per hour. Currently in a sinus mechanism, sinus tachycardia with a rate of 154. Awaiting repeat blood work, and repeat blood gas. Review of Systems All systems: negative Constitutional: Denies chills, Denies fever Eyes: denies blurred vision, denies pain Ears, nose, mouth and throat: Denies headache, Denies sore throat Cardiovascular: Denies chest pain, Denies shortness of breath Respiratory: Reports dyspnea, Denies cough Gastrointestinal: Denies abdominal pain, Denies diarrhea, Denies nausea, Denies vomiting Musculoskeletal: Denies myalgias Integumentary: Denies pruritus, Denies rash Neurological: Denies numbness, Denies weakness Psychiatric: Denies anxiety, Denies depression Endocrine: Denies fatigue, Denies weight change Past Medical History Past Medical History: Diabetes Mellitus, Hyperlipidemia, Hypertension, Rheumatoid Arthritis (RA) Additional Past Medical History / Comment(s): IDDM type II, neuropathy bilateral feet, pancreatitis, RA bilateral hands affected. History of Any Multi-Drug Resistant Organisms: None Reported Past Surgical History: Heart Catheterization With Stent Additional Past Surgical History / Comment(s): PCI with stent to PLV of RCA Past Anesthesia/Blood Transfusion Reactions: No Reported Reaction Date of Last Stent Placement:: 12/16/16 Past Psychological History: Depression Past Alcohol Use History: None Reported Past Drug Use History: None Reported - Past Family History Father Family Medical History: Diabetes Mellitus, Hypertension, Myocardial Infarction ([place]) Additional Family Medical History / Comment(s): Father had a [place] at the age of 77yrs. Mother Family Medical History: Dementia, Hypertension Medications and Allergies Home Medications Medication Instructions Recorded Confirmed Type Atorvastatin [Lipitor] 80 mg PO DAILY #30 tab 12/20/16 08/16/20 Rx lisinopriL [Zestril] 10 mg PO DAILY #30 tab 12/20/16 08/16/20 Rx Clopidogrel [Plavix] 75 mg PO DAILY 06/20/18 08/16/20 History Isosorbide Mononitrate [Isosorbide 30 mg PO DAILY 06/20/18 08/16/20 History Mononitrate ER] Aspirin EC [Ecotrin Low Dose] 81 mg PO DAILY 08/16/20 08/16/20 History Empagliflozin [Jardiance] 10 mg PO DAILY 08/16/20 08/16/20 History Hydrocodone/Acetaminophen [[place] 1 tab PO Q6HR PRN 08/16/20 08/16/20 History 7.5-325] Metoprolol Tartrate [Lopressor] 50 mg PO BID 08/16/20 08/16/20 History Unknown Insulin 1 dose SQ DIRECTED 08/16/20 History Allergies Allergy/AdvReac Type Severity Reaction Status Date / Time No Known Allergies Allergy Verified 06/20/18 12:24 Physical Exam Vitals: Vital Signs Temp Pulse Resp BP Pulse Ox 08/16/20 10:17 151 H 24 102/78 93 L 08/16/20 10:05 151 H 30 H 110/80 92 L 08/16/20 09:21 156 H 24 124/87 90 L 08/16/20 07:44 154 H 24 137/100 90 L 08/16/20 07:30 154 H 34 H 143/89 91 L 08/16/20 07:25 154 H 36 H 147/94 91 L 08/16/20 07:20 154 H 36 H 152/79 91 L 08/16/20 07:00 152 H 32 H 148/114 91 L 08/16/20 06:30 154 H 32 H 167/108 90 L 08/16/20 05:40 165 H 27 H 193/129 08/16/20 05:35 124 H 123 H 98/72 52 L 08/16/20 05:25 186 H 16 231/169 08/16/20 05:20 108 H 116/77 81 L 08/16/20 05:15 140 H 38 H 125/97 56 L 08/16/20 05:10 168 H 30 H 143/116 55 L 08/16/20 05:05 86 H 109/99 61 L 08/16/20 05:00 80 34 H 154/113 33 L 08/16/20 04:55 144 H 54 H 111/26 76 L 08/16/20 04:50 144 H 53 H 166/28 72 L 08/16/20 04:45 144 H 51 H 97/86 08/16/20 04:40 149 H 51 H 105/78 75 L 08/16/20 04:28 96.8 F L 149 H 52 H 142/109 70 L Intake and Output 08/15/20 08/16/20 08/16/20 22:59 06:59 14:59 Intake Total 17.768 91.403 Balance 17.768 91.403 Intake: Intake, IV Titration 17.768 91.403 Amount Norepinephrine 32 mg In .403 Sodium Chloride 0.9% 218 ml @ 0.05 MCG/KG/MIN 2. 639 mls/hr IV .Q24H ONE Rx#:[id number] Other: Weight 112.582 kg GENERAL EXAM: Sedated, intubated, 54-year-old white male, on assist control mode of ventilation with FiO2 of 100% and PEEP of 16 tachycardic, tachypneic, pulse ox and 91% on the monitor, patient was recently intubated, repeat blood g as is pending HEAD: Normocephalic/atraumatic. EYES: Normal reaction of pupils, equal size. Conjunctiva pink, sclera white. NOSE: Clear with pink turbinates. THROAT: No erythema or exudates. NECK: No masses, no JVD, no thyroid enlargement, no adenopathy. CHEST: No chest wall deformity. Symmetrical expansion. LUNGS: Equal air entry with diffuse crackles CVS: Regular rate and rhythm, normal S1 and S2, no gallops, no murmurs, no rubs ABDOMEN: Soft, nontender. No hepatosplenomegaly, normal bowel sounds, no guarding or rigidity. EXTREMITIES: No clubbing, no edema, no cyanosis, 2+ pulses and upper and lower extremities. MUSCULOSKELETAL: Muscle strength and tone normal. SPINE: No scoliosis or deformity SKIN: No rashes CENTRAL NERVOUS SYSTEM: Sedated, intubated No focal deficits, tone is normal in all 4 extremities. Results - Laboratory Findings CBC and BMP: 08/16/20 04:47 08/16/20 04:47 ABG ABG pH 6.93 (7.35-7.45) L* 08/16/20 05:39 ABG pCO2 82 mmHg (35-45) H* 08/16/20 05:39 ABG pO2 46 mmHg (83-108) L* 08/16/20 05:39 ABG O2 Saturation 51.0 % (94-97) L 08/16/20 05:39 PT/INR, D-dimer PT 12.2 sec (9.0-12.0) H 08/16/20 04:47 INR 1.2 (<1.2) H 08/16/20 04:47 D-Dimer >34.10 mg/L FEU (<0.60) H 08/16/20 04:47 Abnormal lab findings: Abnormal Labs 08/16/20 08/16/20 08/16/20 04:32 04:47 04:47 WBC 19.0 H Neutrophils # 15.4 H PT 12.2 H INR 1.2 H D-Dimer >34.10 H ABG pH ABG pCO2 ABG pO2 ABG HCO3 ABG O2 Saturation Carbon Dioxide Glucose POC Glucose (mg/dL) 276 H Plasma Lactic Acid Ino Magnesium AST Alkaline Phosphatase Lactate Dehydrogenase Troponin I C-Reactive Protein Albumin Procalcitonin Urine Protein Urine Glucose (UA) Urine Blood Urine Mucus 08/16/20 08/16/20 08/16/20 04:47 04:47 04:47 WBC Neutrophils # PT INR D-Dimer ABG pH ABG pCO2 ABG pO2 ABG HCO3 ABG O2 Saturation Carbon Dioxide 19 L Glucose 304 H POC Glucose (mg/dL) Plasma Lactic Acid Ino 11.1 H* Magnesium 2.4 H AST 72 H Alkaline Phosphatase 229 H Lactate Dehydrogenase Troponin I 0.989 H* C-Reactive Protein Albumin 3.2 L Procalcitonin Urine Protein Urine Glucose (UA) Urine Blood Urine Mucus 08/16/20 08/16/20 08/16/20 04:47 04:47 05:39 WBC Neutrophils # PT INR D-Dimer ABG pH 6.93 L* ABG pCO2 82 H* ABG pO2 46 L* ABG HCO3 17 L ABG O2 Saturation 51.0 L Carbon Dioxide Glucose POC Glucose (mg/dL) Plasma Lactic Acid Ino Magnesium AST Alkaline Phosphatase Lactate Dehydrogenase 1793 H Troponin I C-Reactive Protein 174.6 H Albumin Procalcitonin 0.16 H Urine Protein Urine Glucose (UA) Urine Blood Urine Mucus 08/16/20 07:18 WBC Neutrophils # PT INR D-Dimer ABG pH ABG pCO2 ABG pO2 ABG HCO3 ABG O2 Saturation Carbon Dioxide Glucose POC Glucose (mg/dL) Plasma Lactic Acid Ino Magnesium AST Alkaline Phosphatase Lactate Dehydrogenase Troponin I C-Reactive Protein Albumin Procalcitonin Urine Protein 1+ H Urine Glucose (UA) 4+ H Urine Blood Small H Urine Mucus Rare H - Diagnostic Findings Chest x-ray: report reviewed, image reviewed Assessment and Plan Plan: Assessment: #1. Acute and severe hypoxemic respiratory failure related to acute COVID 19 pneumonia, timeline of onset of symptoms is unclear, patient failed BiPAP support in the emergency department, required intubation on 08/16/2020. Qualifies for Tocilizumab #2. Cardiac arrest, requiring CPR and multiple rounds of epinephrine, with ROSC, in the ED on 08/16/2020 #3. Troponin leak, we'll follow with serial troponins #4. Elevated d-dimer of greater than 34.1 on admission, too unstable for travel for CTA chest right now, possibly related to acute COVID 19 infection, cover with Lovenox at 0.5 mg/kg twice daily dose will follow on a daily basis #5. Lactic acidosis, not related to sepsis based on the pro-calcitonin level #6. Elevated inflammatory markers related to COVID 19 #7. Acute hypoxic and hypercapnic respiratory failure related to acute COVID 19 pneumonia requiring intubation #8. Hypertension #9. Hyperlipidemia #10. Former smoker #11. Coronary artery disease with previous stenting #12. Morbid obesity Plan: Continue vent support, follow blood gas is pending at this time, we'll give the patient additional liter bolus, wean FiO2 to keep O2 sat at or above 90%, wean levoved, continue with bicarb drip, start Diprivan and Nimbex, continue Lovenox 50 mg twice daily, as the patient stabilizes we'll consider CTA chest to rule out possibility of pulmonary embolism, obtain echocardiogram, cardiology consult, follow-up troponins, we'll continue to follow. Prognosis is poor and guarded. I performed a history & physical examination of the patient and discussed their management with my nurse practitioner, Lizeth Gambino. I reviewed the nurse practitioner's note and agree with the documented findings and plan of care. Lung sounds are positive for diminished breath sounds. The findings and the impression was discussed with the patient. I attest to the documentation by the nurse practitioner. Time with Patient: Greater than 30
[2020-08-16] MEDS: ASPIRIN 81 MG PO SCH (11:21)
[2020-08-16] MEDS: ATORVASTATIN 80 MG TAB PO SCH (11:22)
[2020-08-16] MEDS: CLOPIDOGREL 75 MG TAB PO SCH (11:22)
--- NOTE | 2020-08-16 12:01 | PCN ---
PROCEDURE NOTE PROCEDURE PERFORMED: Left radial art line placement. PREOP DIAGNOSIS: Hypovolemic shock, COVID-19. POSTOP DIAGNOSIS: Hypovolemic shock, COVID-19. ARTERIAL LINE PLACEMENT: Indications: Hemodynamic monitoring. A time-out was completed verifying correct patient, procedure, site, positioning, and implant(s) or special equipment if applicable. Reggie's test was performed to ensure adequate perfusion. The patient's left wrist was prepped and draped in sterile fashion. 1% Lidocaine was used to anesthetize the area. An 18G Arrow arterial line was introduced into the left radial artery. The catheter was threaded over the guide wire and the needle was removed with appropriate pulsatile blood return. Blood loss was minimal. The catheter was then sutured in place to the skin and a sterile dressing applied. Perfusion to the extremity distal to the point of catheter insertion was checked and found to be adequate. The patient tolerated the procedure well and there were no complications. Left radial art line was placed without difficulty, no immediate complications, waveform was noted, line was sutured in place, sterile dressing was applied. The patient tolerated the procedure well. MMODL / IJN: [id number] /
--- NOTE | 2020-08-16 12:22 | US ---
EXAMINATION TYPE: US venous doppler duplex LE DATE OF EXAM: 08/16/2020 11:37 AM COMPARISON: NONE CLINICAL HISTORY: elevated d-dimer. SIDE PERFORMED: Bilateral TECHNIQUE: The lower extremity deep venous system is examined utilizing real time linear array sonog maria elena with graded compression, doppler sonography and color-flow sonography. VESSELS IMAGED: Common Femoral Vein Deep Femoral Vein Greater Saphenous Vein * Femoral Vein Popliteal Vein Small Saphenous Vein * Proximal Calf Veins (* superficial vessels) Unable to obtain right groin images as patient has a central line in right groin. Right Leg: Positive for DVT. There is echoes seen with partial compression at mid pop vein. This is non occluding. Left Leg: Negative for DVT IMPRESSION: 1. Lower extremity thrombus within the right lower extremity. This is nonoccluding at the popliteal v ein. However, only partial compression is evident.
--- NOTE | 2020-08-16 12:32 | P.HPIM ---
History of Present Illness This is a pleasant 54 years old male with past medical history of diabetes mellitus, hyperlipidemia, hypertension, rheumatoid arthritis, diabetic neuropathy. History of coronary artery disease status post stent to RCA branches. He is a patient of Dr. Hilliard. Patient cannot provide information Was obtained from the records and staff. Patient originally came for dyspnea, he was a known case of Covid infection, he was hypertensive and he was on BiPAP on arrival. Per EMS of his oxygen saturation was reading 50% Patient is afebrile currently he had low-grade temperature 96.8 on admission. He is tachycardic and 140s, breathing rate was in 50s on admission currently at 24 after intubation. Blood pressure currently is 98/74 with Levophed infusion. INR is 1.2, d-dimer is elevated more than 34 ABG sewn acidosis 6.9 and 7.0, pCO2 is elevated 82 and 86, PaO2 is low 46 corrected to 91. Labs show leukocytosis 19.0 K, hemoglobin 15.8. Probecalcitonin is only mildly elevated at 0.16. LDH is high at 05/14/1992, C- reactive protein elevated 174. Lactic acid elevated to 11.1, came down to 5.1. BMP is unremarkable except for high glucose at 304. Magnesium 2.4, liver enzymes not elevated, bilirubin is normal. Urine analysis showing no infection but glucosuria. Barrett virus detected. Troponin are elevated at 0.9 and 14.1 Probe BNP is 3240 Chest x-ray: Diffuse bilateral consolidation compatible with bilateral pneumonia , probably atypical pneumonia Patient in the emergency room was started on Lovenox 50 mg twice a day, Pepcid, insulin, morphine, norepinephrine drip, one-time dose of Zosyn. Bicarbonate drip, several doses of normal saline about 4 L. Also 1 dose of tocilizumab His ventilation setting showing a breathing rate around 32, tidal volume 500, FiO2 of 100% and PEEP of 60 Review of Systems Patient cannot provide information because he is intubated Past Medical History Past Medical History: Diabetes Mellitus, Hyperlipidemia, Hypertension, Rheumatoid Arthritis (RA) Additional Past Medical History / Comment(s): IDDM type II, neuropathy bilateral feet, pancreatitis, RA bilateral hands affected. History of Any Multi-Drug Resistant Organisms: None Reported Past Surgical History: Heart Catheterization With Stent Additional Past Surgical History / Comment(s): PCI with stent to PLV of RCA Past Anesthesia/Blood Transfusion Reactions: No Reported Reaction Date of Last Stent Placement:: 12/16/16 Past Psychological History: Depression Past Alcohol Use History: None Reported Past Drug Use History: None Reported - Past Family History Father Family Medical History: Diabetes Mellitus, Hypertension, Myocardial Infarction (VT) Additional Family Medical History / Comment(s): Father had a VT at the age of 77yrs. Mother Family Medical History: Dementia, Hypertension Medications and Allergies Home Medications Medication Instructions Recorded Confirmed Type Atorvastatin [Lipitor] 80 mg PO DAILY #30 tab 12/20/16 08/16/20 Rx lisinopriL [Zestril] 10 mg PO DAILY #30 tab 12/20/16 08/16/20 Rx Clopidogrel [Plavix] 75 mg PO DAILY 06/20/18 08/16/20 History Isosorbide Mononitrate [Isosorbide 30 mg PO DAILY 06/20/18 08/16/20 History Mononitrate ER] Aspirin EC [Ecotrin Low Dose] 81 mg PO DAILY 08/16/20 08/16/20 History Empagliflozin [Jardiance] 10 mg PO DAILY 08/16/20 08/16/20 History Hydrocodone/Acetaminophen [[place] 1 tab PO Q6HR PRN 08/16/20 08/16/20 History 7.5-325] Insulin Degludec [Tresiba 60 units SQ AC-BID 08/16/20 08/16/20 History Flextouch U-100] Pioglitazone [Actos] 15 mg PO AC-BID 08/16/20 08/16/20 History metFORMIN HCL ER [Glucophage Xr] 1,000 mg PO AC-BID 08/16/20 08/16/20 History Allergies Allergy/AdvReac Type Severity Reaction Status Date / Time No Known Allergies Allergy Verified 06/20/18 12:24 Physical Exam Vitals: Vital Signs Temp Pulse Resp BP Pulse Ox 08/16/20 11:40 146 H 24 98/74 90 L 08/16/20 11:00 147 H 24 104/78 90 L 08/16/20 10:55 97.6 F 149 H 24 101/77 92 L 08/16/20 10:17 151 H 24 102/78 93 L 08/16/20 10:05 151 H 30 H 110/80 92 L 08/16/20 09:21 156 H 24 124/87 90 L 08/16/20 07:44 154 H 24 137/100 90 L 08/16/20 07:30 154 H 34 H 143/89 91 L 08/16/20 07:25 154 H 36 H 147/94 91 L 08/16/20 07:20 154 H 36 H 152/79 91 L 08/16/20 07:00 152 H 32 H 148/114 91 L 08/16/20 06:30 154 H 32 H 167/108 90 L 08/16/20 05:40 165 H 27 H 193/129 08/16/20 05:35 124 H 123 H 98/72 52 L 08/16/20 05:25 186 H 16 231/169 08/16/20 05:20 108 H 116/77 81 L 08/16/20 05:15 140 H 38 H 125/97 56 L 08/16/20 05:10 168 H 30 H 143/116 55 L 08/16/20 05:05 86 H 109/99 61 L 08/16/20 05:00 80 34 H 154/113 33 L 08/16/20 04:55 144 H 54 H 111/26 76 L 08/16/20 04:50 144 H 53 H 166/28 72 L 08/16/20 04:45 144 H 51 H 97/86 08/16/20 04:40 149 H 51 H 105/78 75 L 08/16/20 04:28 96.8 F L 149 H 52 H 142/109 70 L Intake and Output 08/15/20 08/16/20 08/16/20 22:59 06:59 14:59 Intake Total 17.768 91.403 Balance 17.768 91.403 Intake: Intake, IV Titration 17.768 91.403 Amount Norepinephrine 32 mg In 17.768 91.403 Sodium Chloride 0.9% 218 ml @ 0.05 MCG/KG/MIN 2. 639 mls/hr IV .Q24H ONE Rx#:[id number] Other: Weight 112.582 kg GENERAL: The patient is intubated and sedated. Obese HEENT: Pupils are round and equally reacting to light. EOMI. No scleral icterus. No conjunctival pallor. Normocephalic, atraumatic. No pharyngeal erythema. No thyromegaly. CARDIOVASCULAR: S1 and S2 present. No murmurs, rubs, or gallops. -PULMONARY: Chest is clear to auscultation, bilateral scattered wheezing and crackles ABDOMEN: Soft, nontender, nondistended, normoactive bowel sounds. No palpable organomegaly. MUSCULOSKELETAL: No joint swelling or deformity. EXTREMITIES: No cyanosis, clubbing, or pedal edema. NEUROLOGICAL: Gross neurological examination did not reveal any focal deficits. SKIN: No rashes. No petechiae Results CBC & Chem 7: 08/16/20 04:47 08/16/20 04:47 Labs: Abnormal Lab Results - Last 24 Hours (Table) 08/16/20 08/16/20 08/16/20 Range/Units 04:32 04:47 04:47 WBC 19.0 H (3.8-10.6) k/uL Neutrophils # 15.4 H (1.3-7.7) k/uL PT 12.2 H (9.0-12.0) sec INR 1.2 H (<1.2) D-Dimer >34.10 H (<0.60) mg/L FEU ABG pH (7.35-7.45) ABG pCO2 (35-45) mmHg ABG pO2 (83-108) mmHg ABG HCO3 (21-25) mmol/L ABG O2 Saturation (94-97) % Carbon Dioxide (22-30) mmol/L Glucose (74-99) mg/dL POC Glucose (mg/dL) 276 H (75-99) mg/dL Plasma Lactic Acid Ino (0.7-2.0) mmol/L Magnesium (1.6-2.3) mg/dL AST (17-59) U/L Alkaline Phosphatase (38-126) U/L Lactate Dehydrogenase (313-618) U/L Troponin I (0.000-0.034) ng/mL C-Reactive Protein (<10.0) mg/L Albumin (3.5-5.0) g/dL Procalcitonin (0.02-0.09) ng/mL Urine Protein (Negative) Urine Glucose (UA) (Negative) Urine Blood (Negative) Urine Mucus (None) /hpf Coronavirus (PCR) (Not Detectd) 08/16/20 08/16/20 08/16/20 Range/Units 04:47 04:47 04:47 WBC (3.8-10.6) k/uL Neutrophils # (1.3-7.7) k/uL PT (9.0-12.0) sec INR (<1.2) D-Dimer (<0.60) mg/L FEU ABG pH (7.35-7.45) ABG pCO2 (35-45) mmHg ABG pO2 (83-108) mmHg ABG HCO3 (21-25) mmol/L ABG O2 Saturation (94-97) % Carbon Dioxide 19 L (22-30) mmol/L Glucose 304 H (74-99) mg/dL POC Glucose (mg/dL) (75-99) mg/dL Plasma Lactic Acid Ino 11.1 H* (0.7-2.0) mmol/L Magnesium 2.4 H (1.6-2.3) mg/dL AST 72 H (17-59) U/L Alkaline Phosphatase 229 H (38-126) U/L Lactate Dehydrogenase (313-618) U/L Troponin I 0.989 H* (0.000-0.034) ng/mL C-Reactive Protein (<10.0) mg/L Albumin 3.2 L (3.5-5.0) g/dL Procalcitonin (0.02-0.09) ng/mL Urine Protein (Negative) Urine Glucose (UA) (Negative) Urine Blood (Negative) Urine Mucus (None) /hpf Coronavirus (PCR) (Not Detectd) 08/16/20 08/16/20 08/16/20 Range/Units 04:47 04:47 05:39 WBC (3.8-10.6) k/uL Neutrophils # (1.3-7.7) k/uL PT (9.0-12.0) sec INR (<1.2) D-Dimer (<0.60) mg/L FEU ABG pH 6.93 L* (7.35-7.45) ABG pCO2 82 H* (35-45) mmHg ABG pO2 46 L* (83-108) mmHg ABG HCO3 17 L (21-25) mmol/L ABG O2 Saturation 51.0 L (94-97) % Carbon Dioxide (22-30) mmol/L Glucose (74-99) mg/dL POC Glucose (mg/dL) (75-99) mg/dL Plasma Lactic Acid Ino (0.7-2.0) mmol/L Magnesium (1.6-2.3) mg/dL AST (17-59) U/L Alkaline Phosphatase (38-126) U/L Lactate Dehydrogenase 1793 H (313-618) U/L Troponin I (0.000-0.034) ng/mL C-Reactive Protein 174.6 H (<10.0) mg/L Albumin (3.5-5.0) g/dL Procalcitonin 0.16 H (0.02-0.09) ng/mL Urine Protein (Negative) Urine Glucose (UA) (Negative) Urine Blood (Negative) Urine Mucus (None) /hpf Coronavirus (PCR) (Not Detectd) 08/16/20 08/16/20 08/16/20 Range/Units 07:18 08:30 09:17 WBC (3.8-10.6) k/uL Neutrophils # (1.3-7.7) k/uL PT (9.0-12.0) sec INR (<1.2) D-Dimer (<0.60) mg/L FEU ABG pH 7.06 L* (7.35-7.45) ABG pCO2 86 H* (35-45) mmHg ABG pO2 (83-108) mmHg ABG HCO3 (21-25) mmol/L ABG O2 Saturation 92.0 L (94-97) % Carbon Dioxide (22-30) mmol/L Glucose (74-99) mg/dL POC Glucose (mg/dL) (75-99) mg/dL Plasma Lactic Acid Ino 5.1 H* (0.7-2.0) mmol/L Magnesium (1.6-2.3) mg/dL AST (17-59) U/L Alkaline Phosphatase (38-126) U/L Lactate Dehydrogenase (313-618) U/L Troponin I (0.000-0.034) ng/mL C-Reactive Protein (<10.0) mg/L Albumin (3.5-5.0) g/dL Procalcitonin (0.02-0.09) ng/mL Urine Protein 1+ H (Negative) Urine Glucose (UA) 4+ H (Negative) Urine Blood Small H (Negative) Urine Mucus Rare H (None) /hpf Coronavirus (PCR) (Not Detectd) 08/16/20 08/16/20 Range/Units 09:17 09:30 WBC (3.8-10.6) k/uL Neutrophils # (1.3-7.7) k/uL PT (9.0-12.0) sec INR (<1.2) D-Dimer (<0.60) mg/L FEU ABG pH (7.35-7.45) ABG pCO2 (35-45) mmHg ABG pO2 (83-108) mmHg ABG HCO3 (21-25) mmol/L ABG O2 Saturation (94-97) % Carbon Dioxide (22-30) mmol/L Glucose (74-99) mg/dL POC Glucose (mg/dL) (75-99) mg/dL Plasma Lactic Acid Ino (0.7-2.0) mmol/L Magnesium (1.6-2.3) mg/dL AST (17-59) U/L Alkaline Phosphatase (38-126) U/L Lactate Dehydrogenase (313-618) U/L Troponin I 14.100 H* (0.000-0.034) ng/mL C-Reactive Protein (<10.0) mg/L Albumin (3.5-5.0) g/dL Procalcitonin (0.02-0.09) ng/mL Urine Protein (Negative) Urine Glucose (UA) (Negative) Urine Blood (Negative) Urine Mucus (None) /hpf Coronavirus (PCR) Detected A (Not Detectd) Assessment and Plan Assessment: Acute covid infection with acute bilateral pneumonia Septic shock Acute hypoxic hypercapnic respiratory failure status post intubation and mechanical ventilation. Elevated troponin 14.1 concerning for coronary artery disease Increased inflammatory markers Elevated d-dimer Elevated lactic acid Type 2 diabetes mellitus Hypertension Hyperlipidemia History of coronary artery disease status post stent to the RCA branch PLV History of rheumatoid arthritis History of diabetic neuropathy Obesity Plan: This is a 54 years old male who presents with septic shock, bilateral Covid pneumonia, elevated troponin, acidosis and respiratory failure. Patient is currently intubated and on mechanical ventilation with pulmonary/critical care team under consult. Start vitamins with vitamin C, vitamin D and zinc. Lovenox, dexamethasone 6 mg daily. Patient status 1 dose of tocilizumab. Continue with aspirin and Plavix cardiology consult Check echocardiogram. Labs and medication were reviewed.. Continue same treatment. Continue with symptomatic treatment. Resume home medication. Monitor lytes and vitals. DVT and GI prophylaxis. Further recommendations depends on the clinical course of the patient DVT prophylaxis: Subcutaneous Lovenox, therapeutic dose GI Prophylaxis: Pepcid Prognosis is guarded
[2020-08-16] MEDS: CHLORHEXIDINE GLUCONATE 15 ML CUP MUCOUS MEM SCH ×2 (13:40→21:09)
[2020-08-16] MEDS: ZINC SULFATE 220 MG CAP PO SCH (13:42)
[2020-08-16] MEDS: ASCORBIC ACID 500 MG TAB PO SCH (13:42)
[2020-08-16] MEDS: CHOLECALCIFEROL 25 MCG (1000 IU) TABLET PO SCH (13:42)
[2020-08-16] MEDS: SODIUM CHLORIDE 0.9% 1,000 ML IV SCH (14:39)
[2020-08-16 15:22] LABS: Glucose,Whole Blood 401 mg/dL (75-99)
[2020-08-16] MEDS ORDERED: ACETAMINOPHEN IV (For NPO) 1,000 MG in EMPTY BAG 1 BAG IVPB ONE (15:37)
[2020-08-16 15:43] LABS: ABG Base Excess -9.4 mmol/L; ABG HCO3 21 mmol/L (21-25); ABG Oxygen Saturation 94.8 % (94-97); ABG PO2 96 mmHg (83-108); ABG TCO2 23 mmol/L (19-24)
[2020-08-16 15:44] LABS: ABG PH 7.07 (7.35-7.45)
[2020-08-16 15:45] LABS: ABG PCO2 71 mmHg (35-45)
[2020-08-16] MEDS ORDERED: HYDROCORTISONE SUCCINATE 100 MG/2 ML VIAL IV ONE (16:00)
[2020-08-16] MEDS ORDERED: SODIUM BICARB 8.4% 50 ML SYR (1 MEQ/ML) IV STA (16:02)
[2020-08-16] MEDS: SODIUM CHLORIDE 0.9% 150 ML with VASOPRESSIN 60 UNIT IV SCH ×2 (16:04)
[2020-08-16 16:23] LABS: Albumin 2.5 g/dL (3.5-5.0); Calcium 6.9 mg/dL (8.4-10.2); Total Bilirubin 0.7 mg/dL (0.2-1.3)
[2020-08-16 16:31] LABS: Potassium 6.1 mmol/L (3.5-5.1)
[2020-08-16 16:32] LABS: HCT 50.8 % (39.0-53.0); HGB 15.1 gm/dL (13.0-17.5); Hypochromasia Marked; MCH 28.7 pg (25.0-35.0); MCHC 29.6 g/dL (31.0-37.0); MCV 96.9 fL (80.0-100.0); Mean Platelet Volume 7.9; Platelet Count 311 k/uL (150-450); RBC 5.24 m/uL (4.30-5.90)
[2020-08-16 16:46] LABS: Glucose,Whole Blood 376 mg/dL (75-99)
[2020-08-16] MEDS: INSULIN REGULAR 100 UNIT in SODIUM CHLORIDE 0.9% 100 ML IV SCH ×2 (17:00→20:55)
[2020-08-16] MEDS ORDERED: INSULIN REGULAR BOLUS (FROM DRIP BAG) IV PRN (17:03)
[2020-08-16] MEDS ORDERED: DEXTROSE 50% SYRINGE 50 ML IVP STA (17:03)
[2020-08-16 17:16] LABS: Glucose,Whole Blood 398 mg/dL (75-99)
[2020-08-16 17:42] LABS: Band Neutrophils % 3 %; Metamyelocytes % 6 %; Myelocytes % 6 %; Neutrophils % (M) 75 %; Nucleated Red Blood Cells 2 /100 WBC (0-0); Total Cells Counted 200
[2020-08-16 17:43] LABS: Lymphocytes # (M) 1.24 k/uL (1.0-4.8); Metamyelocytes # (M) 1.06 k/uL (0); Monocytes # (M) 0.71 k/uL (0-1.0); Myelocytes # (M) 1.06 k/uL (0); Polychromasia Present; WBC 17.7 k/uL (3.8-10.6)
[2020-08-16] MEDS ORDERED: HEPARIN SODIUM 1,000 UN/ML (10ML VL) IV PRN (17:49)
[2020-08-16 17:56] LABS: T4, Free (Free Thyroxine) 2.17 ng/dL (0.78-2.19)
[2020-08-16] MEDS ORDERED: HEPARIN SOD,PORK IN 0.45% NACL 25,000 UNIT in 0.45% NACL 1 250ML.BAG IV SCH (18:00)
[2020-08-16] MEDS ORDERED: HEPARIN SODIUM 1,000 UN/ML (10ML VL) IV ONE (18:00)
[2020-08-16 18:01] LABS: Glucose,Whole Blood 438 mg/dL (75-99)
[2020-08-16 18:26] LABS: INR 1.7 (<1.2); Partial Thromboplastin Time 34.2 sec (22.0-30.0); Prothrombin Time 16.8 sec (9.0-12.0)
[2020-08-16 18:50] LABS: Glucose,Whole Blood 378 mg/dL (75-99)
[2020-08-16 20:53] LABS: Glucose,Whole Blood 352 mg/dL (75-99)
[2020-08-16] MEDS: HYDROCORTISONE SUCCINATE 100 MG/2 ML VIAL IV SCH (21:14)
[2020-08-16 22:24] LABS: Glucose,Whole Blood 309 mg/dL (75-99)
[2020-08-17 00:12] LABS: Glucose,Whole Blood 299 mg/dL (75-99)
[2020-08-17] MEDS: CISATRACURIUM 200 MG in SODIUM CHLORIDE 0.9% 180 ML IV SCH (00:18)
[2020-08-17] MEDS: NOREPINEPHRINE 32 MG in SODIUM CHLORIDE 0.9% 218 ML IV ONE ×2 (00:19→06:55)
[2020-08-17] MEDS: SODIUM CHLORIDE 0.9% 1,000 ML IV SCH ×2 (00:28→06:03)
[2020-08-17 01:06] LABS: Glucose,Whole Blood 290 mg/dL (75-99)
[2020-08-17 01:33] LABS: C Reactive Protein 181.2 mg/L (<10.0)
[2020-08-17 03:00] LABS: Glucose,Whole Blood 247 mg/dL (75-99)
[2020-08-17] MEDS: INSULIN REGULAR 100 UNIT in SODIUM CHLORIDE 0.9% 100 ML IV SCH (03:01)
[2020-08-17] MEDS: HYDROCORTISONE SUCCINATE 100 MG/2 ML VIAL IV SCH ×3 (03:46→17:01)
[2020-08-17] MEDS: ARTIFICIAL TEARS-HYPROMELLOSE DROPS 15 ML BTL BOTH EYES SCH ×4 (03:47→17:00)
[2020-08-17 03:56] LABS: Glucose,Whole Blood 231 mg/dL (75-99)
[2020-08-17 04:45] LABS: INR 2.2 (<1.2); Partial Thromboplastin Time 86.5 sec (22.0-30.0); Prothrombin Time 21.3 sec (9.0-12.0)
[2020-08-17 04:58] LABS: HCT 39.6 % (39.0-53.0); Hypochromasia Marked; MCH 28.6 pg (25.0-35.0); MCHC 29.9 g/dL (31.0-37.0); MCV 95.6 fL (80.0-100.0); Mean Platelet Volume 9.4; RBC 4.15 m/uL (4.30-5.90); RDW 14.3 % (11.5-15.5)
[2020-08-17 05:09] LABS: D-Dimer >34.10 mg/L FEU (<0.60)
[2020-08-17 05:12] LABS: HGB 11.9 gm/dL (13.0-17.5); Platelet Count 102 k/uL (150-450)
[2020-08-17 05:34] LABS: ABG Base Excess -11.6 mmol/L; ABG HCO3 19 mmol/L (21-25); ABG Oxygen Saturation 95.9 % (94-97); ABG PCO2 64 mmHg (35-45); ABG PO2 92 mmHg (83-108); ABG TCO2 21 mmol/L (19-24); Allen Test Performed? Yes
[2020-08-17 05:37] LABS: ABG PH 7.07 (7.35-7.45)
[2020-08-17 05:51] LABS: Albumin 1.5 g/dL (3.5-5.0); Total Bilirubin 0.6 mg/dL (0.2-1.3); Total Protein 3.4 g/dL (6.3-8.2)
[2020-08-17] MEDS: SODIUM CHLORIDE 0.9% 150 ML with VASOPRESSIN 60 UNIT IV SCH ×2 (06:02)
[2020-08-17 06:06] LABS: Glucose,Whole Blood 172 mg/dL (75-99)
[2020-08-17 06:25] LABS: Calcium 4.6 mg/dL (8.4-10.2); Potassium 2.7 mmol/L (3.5-5.1)
[2020-08-17] MEDS ORDERED: POTASSIUM CHLORIDE 20 MEQ in WATER FOR INJECTION 1 100ML.BAG IVPB STA ×2 (06:29→06:30)
[2020-08-17] MEDS ORDERED: NOREPINEPHRINE 32 MG in SODIUM CHLORIDE 0.9% 218 ML IV SCH (07:45)
[2020-08-17 07:53] LABS: Glucose,Whole Blood 136 mg/dL (75-99)
[2020-08-17] MEDS ORDERED: CALCIUM GLUCONATE 2 GM in SODIUM CHLORIDE 0.9% 100 ML IVPB ONE (08:20)
[2020-08-17] MEDS ORDERED: SODIUM BICARB 8.4% 50 ML SYR (1 MEQ/ML) IV STA (08:22)
--- NOTE | 2020-08-17 08:26 | P.PN ---
Subjective Progress Note Date: 08/17/20 54-year-old white male patient with past medical history of hypertension, hyperlipidemia, diabetes mellitus type 2, nicotine dependence the status of which is unknown at this time, coronary artery disease with stenting, morbid obesity, who arrived in the emergency department on 08/16/2020 at 420 7 in the morning per EMS for evaluation of severe hypoxic respiratory failure, when the EMS arrived patient's pulse ox was reading nearly 50%, patient was placed on BiPAP support, given albuterol treatments and transported to the hospital, patient was reportedly tested positive for COVID 19 last week. Repeat COVID 19 PCR on 08/16/2020 came back positive. Chest x-ray showed diffuse patchy airspace disease cardiomegaly. Patient blood work showed white blood cell count of 19, hemoglobin of 15.8, d-dimer was greater than 34.1, sodium was 141, potassium is 3.5, chloride is 103, CO2 is 19, B1 is 15, creatinine 0.89, plasma lactic acid was 11.1, AST was 72, ALT was 36, alk phos was 229, LDH was 1793, tr oponin was 0.989, CRP was 174.6, proBNP was 3240, pro-calcitonin level was 0.16, he eventually failed BiPAP support, he was emergently intubated, and he suffered multiple episodes of cardiac arrest with loss of pulse requiring CPR and the multiple rounds of epinephrine, he was given a liter in fluid boluses, he is currently intubated, he is on assist-control mode of ventilation with a rate of 32, tidal vitamins 500, FiO2 100% and PEEP of 16, his blood gases from earlier this morning showed pO2 of 46, pCO2 of 82, and pH of 6.93. 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 No sedation has been started yet, and bicarbonate infusion will be started with D5 and 3 A of bicarb at a rate of 75 ML per hour. Currently in a sinus mechanism, sinus tachycardia with a rate of 154. Awaiting repeat blood work, and repeat blood gas. On 08/17/2020, I'm seeing this patient for a follow-up. The patient was admitted to the intensive care unit and the patient arrived to the ICU yesterday with hypoxic respiratory failure. The patient was found hypoxic. Initially was placed on a BiPAP. The patient had diffuse bilateral pulmonary infiltrates consistent with obesity-related pneumonia. Chest x-ray showed diffuse patchy breath and pulmonary infiltrates. The patient eventually failed BiPAP. He underwent emergent intubation. The patient suffered multiple episodes of cardiac arrest during the process. Following that he was brought into the intensive care unit. At this point in time, the patient is sedated with propofol and the patient is calm and comfortable. The patient is on propofol running at 15 mcg/kg per minute. The patient is also on Nimbex at 0.5 mcg/kg per minute. The patient is on mechanical ventilator on assist control mode at the rate of 36 with a tidal volume of 500 and FiO2 of 100% with a PEEP of 16. The blood gas shows a pH of 7.07 with a pCO2 of 64 and pO2 of 92. Chest x-ray showed diffuse patchy by the pulmonary infiltrates consistent with pneumonia and the patient's ET tube is in a good location. The patient currently is also paralyzed with Nimbex and 0.5mcg/kg per minute. The patient is on IV heparin. The patient is on insulin drip for blood sugar control. Insulin drip is is currently on hold. Patient is also on norepinephrine at 0.55mcg/kg/minute. Hemodynamics and blood pressure support. Vasopressin is also running at 0.04 units per minute. The blood gases were showing severe metabolic and respiratory acidosis. The patient's d-dimer was above 34,000. Coagulation profile was slightly abnormal with an elevated PT of 21, INR of 2.2 with . White cell count was at 8.2 . Platelet count is 102 . Lactic acid level from yesterday was at 3.1 down to 2.6 . Meanwhile, the patient's potassium level was at 6.1 and the potassium down his 2.7. Creatinine is up to 3.53 with a BUN of 37. The patient was given 40 mEq of potassium chloride supplements. He fluids are normal saline at the rate of 1 30 mL an hour Sugar is being managed with insulin drip insulin is currently on hold The patient has shock liver with elevated AST and ALT on the levels from yesterday was 8852 and 2082 respectively 2. The patient did have a myocardial infarction, acute with a non-STEMI and troponins peaked at 72 and the patient is currently on IV heparin. He had a temperature of 107 and the patient was treated accordingly with 1 g of Tylenol and cooling blankets and fluids. Calcium level from this morning is at 4.6, total. In addition, the patient has possible upper GI bleed. Gastric ulcer still pending. On examination, he is extremely cold and clammy and cyanotic in all 4 extremities and pulses cannot be obtained by regular palpation and there is only Doppler signal. Objective - Vital Signs Vital signs: Vital Signs Temp 100.8 F H 08/17/20 07:45 Pulse 125 H 08/17/20 08:00 Resp 36 H 08/17/20 08:00 BP 136/50 08/17/20 06:15 Pulse Ox 98 08/17/20 08:00 Intake & Output 08/16/20 08/17/20 08/17/20 18:59 06:59 18:59 Intake Total 654.861 8607.276 144.999 Output Total 75 5 5 Balance 750.449 3856.276 139.999 Weight 112.582 kg Intake: IV 390 1560 130 Sodium Chloride 0.9% 1, 390 1560 130 000 ml @ 130 mls/hr IV . Q7H42M [facility] Rx#:[id number] Intake, IV Titration 550.476 808.276 14.999 Amount Cisatracurium 200 mg In 52.801 104.756 Sodium Chloride 0.9% 180 ml @ 1 MCG/KG/MIN 6.755 mls/hr IV .Q24H [facility] Rx#: [id number] Heparin Sod,Pork in 0.45% 112.633 NaCl 25,000 unit In 0.45 % NaCl 1 250ml.bag @ 8.88 UNITS/KG/HR 9.997 mls/hr IV .Q24H [facility] Rx#: [id number] Insulin Regular 100 unit 47.487 213.110 14.999 In Sodium Chloride 0.9% 100 ml @ Per Protocol IV .Q0M [facility] Rx#:[id number] Norepinephrine 32 mg In 411.750 278.314 Sodium Chloride 0.9% 218 ml @ 0.05 MCG/KG/MIN 2. 639 mls/hr IV .Q24H [facility] Rx#:[id number] propofoL 1,000 mg In 38.438 99.463 Empty Bag 1 bag @ Titrate IV .Q0M [facility] Rx#: [id number] Output: Urine 75 5 5 Other: Voiding Method Indwelling Catheter Indwelling Catheter # Voids 0 0 ABP, PAP, CO, CI - Last Documented Arterial Blood Pressure 99/74 - Exam GENERAL EXAM: Sedated, intubated, 54-year-old white male, on assist control mode of ventilation, sedated, paralyzed HEAD: Normocephalic/atraumatic. EYES: Normal reaction of pupils, equal size. Conjunctiva pink, sclera white. NOSE: Clear with pink turbinates. THROAT: No erythema or exudates. NECK: No masses, no JVD, no thyroid enlargement, no adenopathy. CHEST: No chest wall deformity. Symmetrical expansion. LUNGS: Equal air entry with diffuse crackles CVS: Regular rate and rhythm, normal S1 and S2, no gallops, no murmurs, no rubs ABDOMEN: Soft, nontender. No hepatosplenomegaly, normal bowel sounds, no guarding or rigidity. EXTREMITIES: No clubbing, no edema, cyanosis, patient has no pulses and the patient is cyanotic and all 4 extremities and the patient can have only Doppler signals in and upper and lower extremities. MUSCULOSKELETAL: Muscle strength and tone normal. SPINE: No scoliosis or deformity SKIN: No rashes CENTRAL NERVOUS SYSTEM: Sedated, intubated No focal deficits, tone is normal in all 4 extremities. - Labs CBC & Chem 7: 08/17/20 04:00 08/17/20 04:00 Labs: Abnormal Lab Results - Last 24 Hours (Table) 08/16/20 08/16/20 08/16/20 Range/Units 04:47 07:18 08:30 WBC (3.8-10.6) k/uL RBC (4.30-5.90) m/uL Hgb (13.0-17.5) gm/dL MCHC (31.0-37.0) g/dL Plt Count (150-450) k/uL Neutrophils # (Manual) (1.3-7.7) k/uL Metamyelocytes # (Man) (0) k/uL Myelocytes # (Manual) (0) k/uL Nucleated RBCs (0-0) /100 WBC PT (9.0-12.0) sec INR (<1.2) APTT (22.0-30.0) sec D-Dimer (<0.60) mg/L FEU ABG pH 7.06 L* (7.35-7.45) ABG pCO2 86 H* (35-45) mmHg ABG HCO3 (21-25) mmol/L ABG O2 Saturation 92.0 L (94-97) % ABG Lactic Acid (0.5-1.6) mmol/L Potassium (3.5-5.1) mmol/L Chloride (98-107) mmol/L Carbon Dioxide (22-30) mmol/L BUN (9-20) mg/dL Creatinine (0.66-1.25) mg/dL Glucose (74-99) mg/dL POC Glucose (mg/dL) (75-99) mg/dL Plasma Lactic Acid Ino (0.7-2.0) mmol/L Calcium (8.4-10.2) mg/dL AST (17-59) U/L ALT (4-49) U/L Alkaline Phosphatase (38-126) U/L Lactate Dehydrogenase (313-618) U/L Troponin I (0.000-0.034) ng/mL C-Reactive Protein (<10.0) mg/L Total Protein (6.3-8.2) g/dL Albumin (3.5-5.0) g/dL Procalcitonin 0.16 H (0.02-0.09) ng/mL TSH (0.465-4.680) mIU/L Urine Protein 1+ H (Negative) Urine Glucose (UA) 4+ H (Negative) Urine Blood Small H (Negative) Urine Mucus Rare H (None) /hpf Coronavirus (PCR) (Not Detectd) 08/16/20 08/16/20 08/16/20 Range/Units 09:17 09:17 09:30 WBC (3.8-10.6) k/uL RBC (4.30-5.90) m/uL Hgb (13.0-17.5) gm/dL MCHC (31.0-37.0) g/dL Plt Count (150-450) k/uL Neutrophils # (Manual) (1.3-7.7) k/uL Metamyelocytes # (Man) (0) k/uL Myelocytes # (Manual) (0) k/uL Nucleated RBCs (0-0) /100 WBC PT (9.0-12.0) sec INR (<1.2) APTT (22.0-30.0) sec D-Dimer (<0.60) mg/L FEU ABG pH (7.35-7.45) ABG pCO2 (35-45) mmHg ABG HCO3 (21-25) mmol/L ABG O2 Saturation (94-97) % ABG Lactic Acid (0.5-1.6) mmol/L Potassium (3.5-5.1) mmol/L Chloride (98-107) mmol/L Carbon Dioxide (22-30) mmol/L BUN (9-20) mg/dL Creatinine (0.66-1.25) mg/dL Glucose (74-99) mg/dL POC Glucose (mg/dL) (75-99) mg/dL Plasma Lactic Acid Ino 5.1 H* (0.7-2.0) mmol/L Calcium (8.4-10.2) mg/dL AST (17-59) U/L ALT (4-49) U/L Alkaline Phosphatase (38-126) U/L Lactate Dehydrogenase (313-618) U/L Troponin I 14.100 H* (0.000-0.034) ng/mL C-Reactive Protein (<10.0) mg/L Total Protein (6.3-8.2) g/dL Albumin (3.5-5.0) g/dL Procalcitonin (0.02-0.09) ng/mL TSH (0.465-4.680) mIU/L Urine Protein (Negative) Urine Glucose (UA) (Negative) Urine Blood (Negative) Urine Mucus (None) /hpf Coronavirus (PCR) Detected A (Not Detectd) 08/16/20 08/16/20 08/16/20 Range/Units 14:00 15:20 15:40 WBC (3.8-10.6) k/uL RBC (4.30-5.90) m/uL Hgb (13.0-17.5) gm/dL MCHC (31.0-37.0) g/dL Plt Count (150-450) k/uL Neutrophils # (Manual) (1.3-7.7) k/uL Metamyelocytes # (Man) (0) k/uL Myelocytes # (Manual) (0) k/uL Nucleated RBCs (0-0) /100 WBC PT (9.0-12.0) sec INR (<1.2) APTT (22.0-30.0) sec D-Dimer (<0.60) mg/L FEU ABG pH 7.07 L* (7.35-7.45) ABG pCO2 71 H* (35-45) mmHg ABG HCO3 (21-25) mmol/L ABG O2 Saturation (94-97) % ABG Lactic Acid (0.5-1.6) mmol/L Potassium (3.5-5.1) mmol/L Chloride (98-107) mmol/L Carbon Dioxide (22-30) mmol/L BUN (9-20) mg/dL Creatinine (0.66-1.25) mg/dL Glucose (74-99) mg/dL POC Glucose (mg/dL) 401 H (75-99) mg/dL Plasma Lactic Acid Ino 5.6 H* (0.7-2.0) mmol/L Calcium (8.4-10.2) mg/dL AST (17-59) U/L ALT (4-49) U/L Alkaline Phosphatase (38-126) U/L Lactate Dehydrogenase (313-618) U/L Troponin I (0.000-0.034) ng/mL C-Reactive Protein (<10.0) mg/L Total Protein (6.3-8.2) g/dL Albumin (3.5-5.0) g/dL Procalcitonin (0.02-0.09) ng/mL TSH (0.465-4.680) mIU/L Urine Protein (Negative) Urine Glucose (UA) (Negative) Urine Blood (Negative) Urine Mucus (None) /hpf Coronavirus (PCR) (Not Detectd) 08/16/20 08/16/20 08/16/20 Range/Units 16:00 16:00 16:00 WBC 17.7 H (3.8-10.6) k/uL RBC (4.30-5.90) m/uL Hgb (13.0-17.5) gm/dL MCHC 29.6 L (31.0-37.0) g/dL Plt Count (150-450) k/uL Neutrophils # (Manual) 13.80 H (1.3-7.7) k/uL Metamyelocytes # (Man) 1.06 H (0) k/uL Myelocytes # (Manual) 1.06 H (0) k/uL Nucleated RBCs 2 H (0-0) /100 WBC PT (9.0-12.0) sec INR (<1.2) APTT (22.0-30.0) sec D-Dimer (<0.60) mg/L FEU ABG pH (7.35-7.45) ABG pCO2 (35-45) mmHg ABG HCO3 (21-25) mmol/L ABG O2 Saturation (94-97) % ABG Lactic Acid (0.5-1.6) mmol/L Potassium 6.1 H* (3.5-5.1) mmol/L Chloride (98-107) mmol/L Carbon Dioxide 20 L (22-30) mmol/L BUN 32 H (9-20) mg/dL Creatinine 2.61 H (0.66-1.25) mg/dL Glucose 427 H (74-99) mg/dL POC Glucose (mg/dL) (75-99) mg/dL Plasma Lactic Acid Ino (0.7-2.0) mmol/L Calcium 6.9 L (8.4-10.2) mg/dL AST 3163 H (17-59) U/L ALT 1417 H (4-49) U/L Alkaline Phosphatase 264 H (38-126) U/L Lactate Dehydrogenase (313-618) U/L Troponin I 66.400 H* (0.000-0.034) ng/mL C-Reactive Protein (<10.0) mg/L Total Protein 5.0 L (6.3-8.2) g/dL Albumin 2.5 L (3.5-5.0) g/dL Procalcitonin (0.02-0.09) ng/mL TSH 0.210 L (0.465-4.680) mIU/L Urine Protein (Negative) Urine Glucose (UA) (Negative) Urine Blood (Negative) Urine Mucus (None) /hpf Coronavirus (PCR) (Not Detectd) 0408/16/20 08/16/20 Range/Units 16:00 16:45 17:15 WBC (3.8-10.6) k/uL RBC (4.30-5.90) m/uL Hgb (13.0-17.5) gm/dL MCHC (31.0-37.0) g/dL Plt Count (150-450) k/uL Neutrophils # (Manual) (1.3-7.7) k/uL Metamyelocytes # (Man) (0) k/uL Myelocytes # (Manual) (0) k/uL Nucleated RBCs (0-0) /100 WBC PT (9.0-12.0) sec INR (<1.2) APTT (22.0-30.0) sec D-Dimer (<0.60) mg/L FEU ABG pH (7.35-7.45) ABG pCO2 (35-45) mmHg ABG HCO3 (21-25) mmol/L ABG O2 Saturation (94-97) % ABG Lactic Acid 3.1 H* (0.5-1.6) mmol/L Potassium (3.5-5.1) mmol/L Chloride (98-107) mmol/L Carbon Dioxide (22-30) mmol/L BUN (9-20) mg/dL Creatinine (0.66-1.25) mg/dL Glucose (74-99) mg/dL POC Glucose (mg/dL) 376 H 398 H (75-99) mg/dL Plasma Lactic Acid Ino (0.7-2.0) mmol/L Calcium (8.4-10.2) mg/dL AST (17-59) U/L ALT (4-49) U/L Alkaline Phosphatase (38-126) U/L Lactate Dehydrogenase (313-618) U/L Troponin I (0.000-0.034) ng/mL C-Reactive Protein (<10.0) mg/L Total Protein (6.3-8.2) g/dL Albumin (3.5-5.0) g/dL Procalcitonin (0.02-0.09) ng/mL TSH (0.465-4.680) mIU/L Urine Protein (Negative) Urine Glucose (UA) (Negative) Urine Blood (Negative) Urine Mucus (None) /hpf Coronavirus (PCR) (Not Detectd) 08/16/20 08/16/20 08/16/20 Range/Units 17:59 18:00 18:00 WBC (3.8-10.6) k/uL RBC (4.30-5.90) m/uL Hgb (13.0-17.5) gm/dL MCHC (31.0-37.0) g/dL Plt Count (150-450) k/uL Neutrophils # (Manual) (1.3-7.7) k/uL Metamyelocytes # (Man) (0) k/uL Myelocytes # (Manual) (0) k/uL Nucleated RBCs (0-0) /100 WBC PT 16.8 H (9.0-12.0) sec INR 1.7 H (<1.2) APTT 34.2 H (22.0-30.0) sec D-Dimer (<0.60) mg/L FEU ABG pH (7.35-7.45) ABG pCO2 (35-45) mmHg ABG HCO3 (21-25) mmol/L ABG O2 Saturation (94-97) % ABG Lactic Acid (0.5-1.6) mmol/L Potassium (3.5-5.1) mmol/L Chloride (98-107) mmol/L Carbon Dioxide (22-30) mmol/L BUN (9-20) mg/dL Creatinine (0.66-1.25) mg/dL Glucose (74-99) mg/dL POC Glucose (mg/dL) 438 H (75-99) mg/dL Plasma Lactic Acid Ino 3.9 H* (0.7-2.0) mmol/L Calcium (8.4-10.2) mg/dL AST (17-59) U/L ALT (4-49) U/L Alkaline Phosphatase (38-126) U/L Lactate Dehydrogenase (313-618) U/L Troponin I (0.000-0.034) ng/mL C-Reactive Protein (<10.0) mg/L Total Protein (6.3-8.2) g/dL Albumin (3.5-5.0) g/dL Procalcitonin (0.02-0.09) ng/mL TSH (0.465-4.680) mIU/L Urine Protein (Negative) Urine Glucose (UA) (Negative) Urine Blood (Negative) Urine Mucus (None) /hpf Coronavirus (PCR) (Not Detectd) 08/16/20 08/16/20 08/16/20 Range/Units 18:49 20:49 20:50 WBC (3.8-10.6) k/uL RBC (4.30-5.90) m/uL Hgb (13.0-17.5) gm/dL MCHC (31.0-37.0) g/dL Plt Count (150-450) k/uL Neutrophils # (Manual) (1.3-7.7) k/uL Metamyelocytes # (Man) (0) k/uL Myelocytes # (Manual) (0) k/uL Nucleated RBCs (0-0) /100 WBC PT (9.0-12.0) sec INR (<1.2) APTT (22.0-30.0) sec D-Dimer (<0.60) mg/L FEU ABG pH (7.35-7.45) ABG pCO2 (35-45) mmHg ABG HCO3 (21-25) mmol/L ABG O2 Saturation (94-97) % ABG Lactic Acid (0.5-1.6) mmol/L Potassium (3.5-5.1) mmol/L Chloride (98-107) mmol/L Carbon Dioxide (22-30) mmol/L BUN (9-20) mg/dL Creatinine (0.66-1.25) mg/dL Glucose (74-99) mg/dL POC Glucose (mg/dL) 378 H 352 H (75-99) mg/dL Plasma Lactic Acid Ino 3.3 H* (0.7-2.0) mmol/L Calcium (8.4-10.2) mg/dL AST (17-59) U/L ALT (4-49) U/L Alkaline Phosphatase (38-126) U/L Lactate Dehydrogenase (313-618) U/L Troponin I (0.000-0.034) ng/mL C-Reactive Protein (<10.0) mg/L Total Protein (6.3-8.2) g/dL Albumin (3.5-5.0) g/dL Procalcitonin (0.02-0.09) ng/mL TSH (0.465-4.680) mIU/L Urine Protein (Negative) Urine Glucose (UA) (Negative) Urine Blood (Negative) Urine Mucus (None) /hpf Coronavirus (PCR) (Not Detectd) 08/16/20 08/17/20 08/17/20 Range/Units 22:22 00:00 00:00 WBC (3.8-10.6) k/uL RBC (4.30-5.90) m/uL Hgb (13.0-17.5) gm/dL MCHC (31.0-37.0) g/dL Plt Count (150-450) k/uL Neutrophils # (Manual) (1.3-7.7) k/uL Metamyelocytes # (Man) (0) k/uL Myelocytes # (Manual) (0) k/uL Nucleated RBCs (0-0) /100 WBC PT (9.0-12.0) sec INR (<1.2) APTT 58.9 H (22.0-30.0) sec D-Dimer (<0.60) mg/L FEU ABG pH (7.35-7.45) ABG pCO2 (35-45) mmHg ABG HCO3 (21-25) mmol/L ABG O2 Saturation (94-97) % ABG Lactic Acid (0.5-1.6) mmol/L Potassium (3.5-5.1) mmol/L Chloride (98-107) mmol/L Carbon Dioxide (22-30) mmol/L BUN (9-20) mg/dL Creatinine (0.66-1.25) mg/dL Glucose (74-99) mg/dL POC Glucose (mg/dL) 309 H (75-99) mg/dL Plasma Lactic Acid Ino (0.7-2.0) mmol/L Calcium (8.4-10.2) mg/dL AST (17-59) U/L ALT (4-49) U/L Alkaline Phosphatase (38-126) U/L Lactate Dehydrogenase (313-618) U/L Troponin I 72.100 H* (0.000-0.034) ng/mL C-Reactive Protein (<10.0) mg/L Total Protein (6.3-8.2) g/dL Albumin (3.5-5.0) g/dL Procalcitonin (0.02-0.09) ng/mL TSH (0.465-4.680) mIU/L Urine Protein (Negative) Urine Glucose (UA) (Negative) Urine Blood (Negative) Urine Mucus (None) /hpf Coronavirus (PCR) (Not Detectd) 08/17/20 08/17/20 08/17/20 Range/Units 00:00 00:00 00:11 WBC (3.8-10.6) k/uL RBC (4.30-5.90) m/uL Hgb (13.0-17.5) gm/dL MCHC (31.0-37.0) g/dL Plt Count (150-450) k/uL Neutrophils # (Manual) (1.3-7.7) k/uL Metamyelocytes # (Man) (0) k/uL Myelocytes # (Manual) (0) k/uL Nucleated RBCs (0-0) /100 WBC PT (9.0-12.0) sec INR (<1.2) APTT (22.0-30.0) sec D-Dimer (<0.60) mg/L FEU ABG pH (7.35-7.45) ABG pCO2 (35-45) mmHg ABG HCO3 (21-25) mmol/L ABG O2 Saturation (94-97) % ABG Lactic Acid (0.5-1.6) mmol/L Potassium (3.5-5.1) mmol/L Chloride (98-107) mmol/L Carbon Dioxide (22-30) mmol/L BUN (9-20) mg/dL Creatinine (0.66-1.25) mg/dL Glucose (74-99) mg/dL POC Glucose (mg/dL) 299 H (75-99) mg/dL Plasma Lactic Acid Ino 2.8 H* (0.7-2.0) mmol/L Calcium (8.4-10.2) mg/dL AST (17-59) U/L ALT (4-49) U/L Alkaline Phosphatase (38-126) U/L Lactate Dehydrogenase 1804 H (313-618) U/L Troponin I (0.000-0.034) ng/mL C-Reactive Protein 181.2 H (<10.0) mg/L Total Protein (6.3-8.2) g/dL Albumin (3.5-5.0) g/dL Procalcitonin (0.02-0.09) ng/mL TSH (0.465-4.680) mIU/L Urine Protein (Negative) Urine Glucose (UA) (Negative) Urine Blood (Negative) Urine Mucus (None) /hpf Coronavirus (PCR) (Not Detectd) 08/17/20 08/17/20 08/17/20 Range/Units 01:05 02:59 03:55 WBC (3.8-10.6) k/uL RBC (4.30-5.90) m/uL Hgb (13.0-17.5) gm/dL MCHC (31.0-37.0) g/dL Plt Count (150-450) k/uL Neutrophils # (Manual) (1.3-7.7) k/uL Metamyelocytes # (Man) (0) k/uL Myelocytes # (Manual) (0) k/uL Nucleated RBCs (0-0) /100 WBC PT (9.0-12.0) sec INR (<1.2) APTT (22.0-30.0) sec D-Dimer (<0.60) mg/L FEU ABG pH (7.35-7.45) ABG pCO2 (35-45) mmHg ABG HCO3 (21-25) mmol/L ABG O2 Saturation (94-97) % ABG Lactic Acid (0.5-1.6) mmol/L Potassium (3.5-5.1) mmol/L Chloride (98-107) mmol/L Carbon Dioxide (22-30) mmol/L BUN (9-20) mg/dL Creatinine (0.66-1.25) mg/dL Glucose (74-99) mg/dL POC Glucose (mg/dL) 290 H 247 H 231 H (75-99) mg/dL Plasma Lactic Acid Ino (0.7-2.0) mmol/L Calcium (8.4-10.2) mg/dL AST (17-59) U/L ALT (4-49) U/L Alkaline Phosphatase (38-126) U/L Lactate Dehydrogenase (313-618) U/L Troponin I (0.000-0.034) ng/mL C-Reactive Protein (<10.0) mg/L Total Protein (6.3-8.2) g/dL Albumin (3.5-5.0) g/dL Procalcitonin (0.02-0.09) ng/mL TSH (0.465-4.680) mIU/L Urine Protein (Negative) Urine Glucose (UA) (Negative) Urine Blood (Negative) Urine Mucus (None) /hpf Coronavirus (PCR) (Not Detectd) 08/17/20 08/17/20 08/17/20 Range/Units 04:00 04:00 04:00 WBC (3.8-10.6) k/uL RBC 4.15 L (4.30-5.90) m/uL Hgb 11.9 L D (13.0-17.5) gm/dL MCHC 29.9 L (31.0-37.0) g/dL Plt Count 102 L D (150-450) k/uL Neutrophils # (Manual) (1.3-7.7) k/uL Metamyelocytes # (Man) (0) k/uL Myelocytes # (Manual) (0) k/uL Nucleated RBCs (0-0) /100 WBC PT 21.3 H (9.0-12.0) sec INR 2.2 H (<1.2) APTT 86.5 H (22.0-30.0) sec D-Dimer >34.10 H (<0.60) mg/L FEU ABG pH (7.35-7.45) ABG pCO2 (35-45) mmHg ABG HCO3 (21-25) mmol/L ABG O2 Saturation (94-97) % ABG Lactic Acid (0.5-1.6) mmol/L Potassium 2.7 L* (3.5-5.1) mmol/L Chloride 119 H (98-107) mmol/L Carbon Dioxide 15 L (22-30) mmol/L BUN 37 H (9-20) mg/dL Creatinine 3.53 H (0.66-1.25) mg/dL Glucose 184 H (74-99) mg/dL POC Glucose (mg/dL) (75-99) mg/dL Plasma Lactic Acid Ino (0.7-2.0) mmol/L Calcium 4.6 L* (8.4-10.2) mg/dL AST 8852 H (17-59) U/L ALT 2082 H (4-49) U/L Alkaline Phosphatase 199 H (38-126) U/L Lactate Dehydrogenase (313-618) U/L Troponin I (0.000-0.034) ng/mL C-Reactive Protein (<10.0) mg/L Total Protein 3.4 L (6.3-8.2) g/dL Albumin 1.5 L (3.5-5.0) g/dL Procalcitonin (0.02-0.09) ng/mL TSH (0.465-4.680) mIU/L Urine Protein (Negative) Urine Glucose (UA) (Negative) Urine Blood (Negative) Urine Mucus (None) /hpf Coronavirus (PCR) (Not Detectd) 08/17/20 08/17/20 08/17/20 Range/Units 04:00 05:30 06:05 WBC (3.8-10.6) k/uL RBC (4.30-5.90) m/uL Hgb (13.0-17.5) gm/dL MCHC (31.0-37.0) g/dL Plt Count (150-450) k/uL Neutrophils # (Manual) (1.3-7.7) k/uL Metamyelocytes # (Man) (0) k/uL Myelocytes # (Manual) (0) k/uL Nucleated RBCs (0-0) /100 WBC PT (9.0-12.0) sec INR (<1.2) APTT (22.0-30.0) sec D-Dimer (<0.60) mg/L FEU ABG pH 7.07 L* (7.35-7.45) ABG pCO2 64 H (35-45) mmHg ABG HCO3 19 L (21-25) mmol/L ABG O2 Saturation (94-97) % ABG Lactic Acid (0.5-1.6) mmol/L Potassium (3.5-5.1) mmol/L Chloride (98-107) mmol/L Carbon Dioxide (22-30) mmol/L BUN (9-20) mg/dL Creatinine (0.66-1.25) mg/dL Glucose (74-99) mg/dL POC Glucose (mg/dL) 172 H (75-99) mg/dL Plasma Lactic Acid Ino 2.6 H* (0.7-2.0) mmol/L Calcium (8.4-10.2) mg/dL AST (17-59) U/L ALT (4-49) U/L Alkaline Phosphatase (38-126) U/L Lactate Dehydrogenase (313-618) U/L Troponin I (0.000-0.034) ng/mL C-Reactive Protein (<10.0) mg/L Total Protein (6.3-8.2) g/dL Albumin (3.5-5.0) g/dL Procalcitonin (0.02-0.09) ng/mL TSH (0.465-4.680) mIU/L Urine Protein (Negative) Urine Glucose (UA) (Negative) Urine Blood (Negative) Urine Mucus (None) /hpf Coronavirus (PCR) (Not Detectd) 08/17/20 Range/Units 07:52 WBC (3.8-10.6) k/uL RBC (4.30-5.90) m/uL Hgb (13.0-17.5) gm/dL MCHC (31.0-37.0) g/dL Plt Count (150-450) k/uL Neutrophils # (Manual) (1.3-7.7) k/uL Metamyelocytes # (Man) (0) k/uL Myelocytes # (Manual) (0) k/uL Nucleated RBCs (0-0) /100 WBC PT (9.0-12.0) sec INR (<1.2) APTT (22.0-30.0) sec D-Dimer (<0.60) mg/L FEU ABG pH (7.35-7.45) ABG pCO2 (35-45) mmHg ABG HCO3 (21-25) mmol/L ABG O2 Saturation (94-97) % ABG Lactic Acid (0.5-1.6) mmol/L Potassium (3.5-5.1) mmol/L Chloride (98-107) mmol/L Carbon Dioxide (22-30) mmol/L BUN (9-20) mg/dL Creatinine (0.66-1.25) mg/dL Glucose (74-99) mg/dL POC Glucose (mg/dL) 136 H (75-99) mg/dL Plasma Lactic Acid Ino (0.7-2.0) mmol/L Calcium (8.4-10.2) mg/dL AST (17-59) U/L ALT (4-49) U/L Alkaline Phosphatase (38-126) U/L Lactate Dehydrogenase (313-618) U/L Troponin I (0.000-0.034) ng/mL C-Reactive Protein (<10.0) mg/L Total Protein (6.3-8.2) g/dL Albumin (3.5-5.0) g/dL Procalcitonin (0.02-0.09) ng/mL TSH (0.465-4.680) mIU/L Urine Protein (Negative) Urine Glucose (UA) (Negative) Urine Blood (Negative) Urine Mucus (None) /hpf Coronavirus (PCR) (Not Detectd) Assessment and Plan Plan: #1. Acute and severe hypoxemic respiratory failure related to acute COVID 19 pneumonia, timeline of onset of symptoms is unclear, patient failed BiPAP support in the emergency department, required intubation on 08/16/2020. Patient currently intubated on a mechanical ventilator. Chest x-ray showing diffuse bilateral patchy peripheral pulmonary infiltrates. ET tube is in a good location. Blood gases was noted. The patient is hemodynamically stable on pressors and the patient is post non-STEMI. Patient's blood. This showing sev ere respiratory and metabolic acidosis and patient is still hypoxic on FiO2 of 100% with a PEEP of extreme. #2. Cardiac arrest, requiring CPR and multiple rounds of epinephrine, with ROSC, in the ED on 08/16/2020, estimated down time was hour and 30 minutes and the patient is considered to have an underlying hypoxic encephalopathy #3. Acute non-STEMI with a peak troponin of above 72 and the patient is currently on IV heparin. #4. Elevated inflammatory markers including a high level of d-dimer #5. Lactic acidosis, related to cardiac arrest and not related to sepsis based on the pro-calcitonin level, and the lactic acid level is improved #6. Shock, hypotension, possibly cardiogenic post non-STEMI and cardiac arrest. Currently on a combination of norepinephrine and vasopressin #7. Acute kidney injury with secondary metabolic acidosis and hyperkalemia, potassium level has dropped and the patient's creatinine is on the rise. Urine output is ordered of 5 mL overnight #8. Hypertension #9. Hyperlipidemia #10. Former smoker #11. Coronary artery disease with previous stenting #12. Morbid obesity, current BMI is 32 #13 thrombocytopenia #14 hypocalcemia #15 high likelihood for anoxic encephalopathy due to cardiac arrest and prolonged downtime. #16 fever secondary to Covid 19 infection Plan: Keep the patient sedated with propofol Keep the patient paralyzed with Nimbex Continue ventilator support, ventilator settings were noted, chest x-ray was reviewed, blood gases was reviewed, the patient is quite acidotic. The patient will be given a total of 150 mEq of sodium bicarbonate pushes and IV fluid will be switched to sodium bicarb infusion at the rate of 100 mL an hour of 150 mEq of sodium bicarbonate. Keep the patient a combination of norepinephrine infusion and vasopressin for blood pressure control Calcium gluconate 2 g right now and monitor the electrolytes Monitor renal function. The patient's potassium level was treated yesterday and the patient has an acute hyperkalemia. Potassium level needs to be monitored renal function is to be monitor. Nephrology will be consulted along with cardiology. Insulin drip for blood sugar control if needed Steroids were given in the form of hydrocortisone Decadron 6 mg IV every 24 hours 2-D echocardiogram to assess LV function Condition is critical we'll continue to follow make further recommendations based on his progress. Increased risk of mortality. Consider possibility of anoxic encephalopathy post cardiac arrest. Stopped IV heparin due to concern of an upper GI bleed and monitor the platelet count Critically care evaluation more than 30 minutes Time with Patient: Greater than 30
[2020-08-17 08:30] LABS: Band Neutrophils % 3 %; Metamyelocytes # (M) 0.16 k/uL (0); Metamyelocytes % 2 %; Monocytes # (M) 0.16 k/uL (0-1.0); Myelocytes % 3 %; Neutrophils % (M) 86 %; Nucleated Red Blood Cells 5 /100 WBC (0-0); Total Cells Counted 200
[2020-08-17] MEDS ORDERED: DEXTROSE 5% IN WATER 1,000 ML IV SCH (08:30)
[2020-08-17 08:31] LABS: Lymphocytes # (M) 0.39 k/uL (1.0-4.8); Myelocytes # (M) 0.23 k/uL (0); WBC 7.8 k/uL (3.8-10.6)
[2020-08-17 08:32] LABS: Polychromasia Present
[2020-08-17 08:44] LABS: Hypersegmented Neutrophils Present
--- NOTE | 2020-08-17 08:44 | CONS ---
CONSULTATION Mr. Krishnan is a 54-year-old male with a known history of coronary artery disease who presented to the emergency room with progressive dyspnea. No history could be obtained. The history was obtained from the records and the nursing staff. Apparently, he has been diagnosed with COVID-19 infection recently and came in with symptoms of progressive dyspnea, was severely dyspneic, intubated in the emergency room, had cardiac arrest. Reviewing the CPR sheet, it looks like he had PEA as well as SVT. There is no documentation of ventricular tachycardia. The patient is intubated on vasopressors with minimal urine output. He is in sinus mechanism and sinus tachycardia at this time. Reviewing his record, he has been followed by Dr. Pham in the past and has underwent stenting of his diagonal branch in 2019 as well as stenting of the right coronary artery, PLV in December of 2016 in the setting of myocardial infarction. He has chronic occlusion of the mid LAD on study that was documented at that time. There is no evidence of ventricular tachycardia since admission and his EKG showed ST-segment elevation anteriorly, more prominent after admission. The prior history is remarkable for history of diabetes, hypertension and hyperlipidemia. He was quite febrile on presentation. MEDICATIONS: His medications at home included metformin 1 gram twice a day, lisinopril 10 mg daily, Actos 15 mg twice a day, isosorbide mononitrate 30 mg daily, insulin Jardiance 10 mg daily, Plavix 75 mg daily, Lipitor 80 mg daily and aspirin once a day. REVIEW OF SYSTEMS: Review of systems could not be obtained. PHYSICAL EXAMINATION: This 54-year-old male, intubated, nonresponsive. Blood pressure running in the high 90s and up to the 120s with a heart rate of 120s, temperature of 102.7. He had a temperature up to on presentation. HEAD: Normocephalic. EYES: Pupil fixed, not responsive. NECK: No bruit. LUNGS: With crackles anteriorly. HEART: Regular rate and rhythm. S1, S2 tachycardic. No S3. No rub. ABDOMEN: Soft. No organomegaly. EXTREMITIES: Trace to 1+ edema. Decreased distal pulses. LAB DATA: Lab data revealed pH 7.07, pCO2 of 64, pO2 of 92. Hemoglobin 11.9. The D-dimer over 34. He had a BUN and creatinine 37 and 3.5, which has significantly worsened compared to admission. His creatinine was 0.89. His AST is 8852, ALT 2,082, which is worsening. His troponin is up to 72. His LDH is 1804. C-reactive protein 181. His EKG is consistent with sinus mechanism and evidence of inferior wall infarction as well as anterior wall myocardial infarction with elevated ST-segment. His chest x-ray shows severe bilateral infiltrates. His duplex scan shows lower extremities thrombus with the right lower extremity. IMPRESSION: 1. Respiratory failure with severe COVID-19 pneumonia. 2. Evidence of myocardial infarction in a patient with known history of coronary artery disease and chronic occluded LAD. 3. Acute in the kidney injury with rapid worsening of the renal function. 4. Cardiac arrest. 5. Prior stenting of the diagonal branch in the PLV. 6. Prior history of hypertension. 7. History of hyperlipidemia. 8. Diabetes mellitus. RECOMMENDATION: From the cardiac standpoint, will continue supportive care. We will obtain echocardiogram with Doppler to evaluate the systolic function. Unfortunately, the prognosis is very poor considering his multiorgan involvement. Depending on his progress, further recommendation will be made. Thank you for this consult. Will follow with you. MMODL / IJN: [id number] /
[2020-08-17 08:54] LABS: Glucose,Whole Blood 147 mg/dL (75-99)
[2020-08-17] MEDS ORDERED: DEXAMETHASONE SOD PHOSPHATE 10 MG/ML 1 ML VIAL IV SCH (09:00)
[2020-08-17] MEDS ORDERED: PANTOPRAZOLE 40 MG/10 ML VIAL IVP SCH (09:15)
[2020-08-17] MEDS ORDERED: DEXTROSE 5% IN WATER 1,000 ML with SODIUM BICARB (1 MEQ/ML) 150 ML IV SCH (09:19)
[2020-08-17] MEDS: ATORVASTATIN 80 MG TAB PO SCH (09:24)
[2020-08-17] MEDS: CHOLECALCIFEROL 25 MCG (1000 IU) TABLET PO SCH (09:24)
[2020-08-17] MEDS: ASCORBIC ACID 500 MG TAB PO SCH (09:24)
[2020-08-17] MEDS: ASPIRIN 81 MG PO SCH (09:24)
[2020-08-17] MEDS: FAMOTIDINE 20 MG/2 ML VIAL IV SCH (09:25)
[2020-08-17] MEDS: CLOPIDOGREL 75 MG TAB PO SCH (09:25)
[2020-08-17] MEDS: ZINC SULFATE 220 MG CAP PO SCH (09:25)
[2020-08-17] MEDS: CHLORHEXIDINE GLUCONATE 15 ML CUP MUCOUS MEM SCH (09:35)
[2020-08-17 10:10] LABS: Glucose,Whole Blood 132 mg/dL (75-99)
[2020-08-17 10:55] LABS: Glucose,Whole Blood 153 mg/dL (75-99)
--- NOTE | 2020-08-17 10:58 | XR ---
EXAMINATION TYPE: XR chest 1V portable DATE OF EXAM: 08/17/2020 CLINICAL HISTORY: Difficulty breathing progress study. TECHNIQUE: Single AP portable semiupright view of the chest is obtained. COMPARISON: Chest x-rays from one day earlier. FINDINGS: Stable endotracheal and orogastric tubes. Persistent bilateral multifocal increased opacities. Cardiac silhouette size stable and within normal limits. Osseous structures are intact. IMPRESSION: Bilateral multifocal opacities consistent with covid-19 infection, no significant change from one day earlier.
--- NOTE | 2020-08-17 11:20 | ECHOF ---
Referral Reason:elevated troponin MEASUREMENTS -------- HEIGHT: 180.3 cm WEIGHT: 112.5 kg BP: 103/80 RVIDd: 3.3 cm (< 3.3) IVSd: 1.3 cm (0.6 - 1.1) LVIDd: 4.0 cm (3.9 - 5.3) LVPWd: 1.5 cm (0.6 - 1.1) IVSs: 1.5 cm LVIDs: 3.5 cm LVPWs: 1.9 cm Ao Diam: 3.7 cm (2.0 - 3.7) AV Cusp: 1.6 cm (1.5 - 2.6) LA Diam: 3.0 cm (2.7 - 3.8) MV E Shailesh: 0.40 m/s MV DecT: 85 ms MV A Shailesh: 0.27 m/s MV E/A Ratio: 1.48 RAP: 5.00 mmHg RVSP: 14.20 mmHg FINDINGS -------- This was a technically difficult study with suboptimal views. Pt. on a vent. The left ventricular size is normal. There is mild concentric left ventricular hypertrophy. Overa ll left ventricular systolic function is severely impaired with, an EF between 20 - 25 %. The right ventricle is mildly enlarged. The left atrial size is normal. The right atrium was not well visualized. Lumason used The aortic valve was not well visualized. The mitral valve was not well visualized. There is trace mitral regurgitation. The tricuspid valve was not well visualized. Trace tricuspid regurgitation present. Right ventric ular systolic pressure is normal at < 35 mmHg. The pulmonic valve was not well visualized. The aortic root size is normal. IVC Not well visulized. There is no pericardial effusion. CONCLUSIONS -------- 1. The left ventricular size is normal. 2. There is mild concentric left ventricular hypertrophy. 3. Overall left ventricular systolic function is severely impaired with, an EF between 20 - 25 %. 4. The right ventricle is mildly enlarged. 5. There is trace mitral regurgitation. 6. Trace tricuspid regurgitation present. 7. There is no pericardial effusion. CREDIT PROCESSOR: Medina Oh, [facility]
[2020-08-17 12:06] LABS: Glucose,Whole Blood 163 mg/dL (75-99)
--- NOTE | 2020-08-17 12:13 | P.NPCON ---
History of Present Illness - Reason for Consult acute renal failure - History of Present Illness Reason for consultation: Acute kidney injury History of present illness: The patient is a 54-year-old male seen in consultation for acute kidney injury. Patient's baseline creatinine is near 1 and is elevated at 3.5 today. Patient presented to the hospital due to worsening shortness of breath. Patient tested positive for covid-19 towards the end of July and his symptoms and breathing have been progressively getting worse. Patient's pulse ox as noted by the EMS was 50%. He's currently intubated and sedated. He is 100% FiO2 support. He is on high-dose Levophed as well as vasopressin. Patient is oliguric. Potassium was elevated which was medically treated and now low. Patient did have cardiac arrest this admission and received multiple rounds of epinephrine. Echocardiogram revealed ejection fraction of 20-25%. He is also noted to have right lower extremity DVT. Chest x-ray suggestive of pneumonia. He is maintained on bicarb drip. Tueb feeding is currently held due to coffee-ground emesis. Vital signs: Tachycardic and hypotensive. On vasopressor support. General: The patient appeared well nourished and normally developed. HEENT: Intubated. LUNGS: Breath sounds decreased. HEART: Tachycardic. ABDOMEN: Soft, no distention. EXTREMITITES: No edema. Past Medical History Past Medical History: Diabetes Mellitus, Hyperlipidemia, Hypertension, Rheumatoid Arthritis (RA) Additional Past Medical History / Comment(s): IDDM type II, neuropathy bilateral feet, pancreatitis, RA bilateral hands affected. History of Any Multi-Drug Resistant Organisms: None Reported Past Surgical History: Heart Catheterization With Stent Additional Past Surgical History / Comment(s): PCI with stent to PLV of RCA Past Anesthesia/Blood Transfusion Reactions: No Reported Reaction Date of Last Stent Placement:: 12/16/16 Past Psychological History: Depression Past Alcohol Use History: None Reported Past Drug Use History: None Reported - Past Family History Father Family Medical History: Diabetes Mellitus, Hypertension, Myocardial Infarction ([place]) Additional Family Medical History / Comment(s): Father had a [place] at the age of 77yrs. Mother Family Medical History: Dementia, Hypertension Medications and Allergies Home Medications Medication Instructions Recorded Confirmed Type Atorvastatin [Lipitor] 80 mg PO DAILY #30 tab 12/20/16 08/16/20 Rx lisinopriL [Zestril] 10 mg PO DAILY #30 tab 12/20/16 08/16/20 Rx Clopidogrel [Plavix] 75 mg PO DAILY 06/20/18 08/16/20 History Isosorbide Mononitrate [Isosorbide 30 mg PO DAILY 06/20/18 08/16/20 History Mononitrate ER] Aspirin EC [Ecotrin Low Dose] 81 mg PO DAILY 08/16/20 08/16/20 History Empagliflozin [Jardiance] 10 mg PO DAILY 08/16/20 08/16/20 History Hydrocodone/Acetaminophen [Randall 1 tab PO Q6HR PRN 08/16/20 08/16/20 History 7.5-325] Insulin Degludec [Tresiba 60 units SQ AC-BID 08/16/20 08/16/20 History Flextouch U-100] Pioglitazone [Actos] 15 mg PO AC-BID 08/16/20 08/16/20 History metFORMIN HCL ER [Glucophage Xr] 1,000 mg PO AC-BID 08/16/20 08/16/20 History Allergies Allergy/AdvReac Type Severity Reaction Status Date / Time No Known Allergies Allergy Verified 06/20/18 12:24 Physical Exam Vitals: Vital Signs Temp Pulse Resp BP Pulse Ox 08/17/20 11:00 125 H 36 H 100 08/17/20 10:45 126 H 36 H 100 08/17/20 10:30 124 H 36 H 100 08/17/20 10:15 123 H 36 H 100 08/17/20 10:00 121 H 36 H 100 08/17/20 09:45 121 H 36 H 100 08/17/20 09:30 123 H 36 H 100 08/17/20 09:15 122 H 36 H 100 08/17/20 09:00 99.1 F 123 H 36 H 100 08/17/20 08:45 124 H 99 08/17/20 08:30 125 H 36 H 99 08/17/20 08:15 125 H 36 H 99 08/17/20 08:00 125 H 36 H 98 08/17/20 07:45 100.8 F H 125 H 36 H 98 08/17/20 07:30 125 H 36 H 98 08/17/20 07:15 124 H 36 H 98 08/17/20 07:00 124 H 36 H 98 08/17/20 06:45 124 H 36 H 98 08/17/20 06:30 124 H 36 H 98 08/17/20 06:15 124 H 36 H 136/50 97 08/17/20 06:00 123 H 36 H 97 08/17/20 05:45 124 H 36 H 97 08/17/20 05:30 125 H 36 H 96 08/17/20 05:15 102.7 F H 124 H 36 H 96 08/17/20 05:00 124 H 36 H 96 08/17/20 04:45 124 H 36 H 96 08/17/20 04:30 103.6 F H 123 H 97 08/17/20 04:15 124 H 97 08/17/20 04:00 104.5 F H 125 H 36 H 98 08/17/20 03:45 124 H 98 08/17/20 03:30 124 H 97 08/17/20 03:15 125 H 36 H 98 08/17/20 03:00 105.6 F H 124 H 36 H 97 08/17/20 02:45 125 H 36 H 97 08/17/20 02:30 106.0 F H 129 H 36 H 95 08/17/20 02:15 126 H 36 H 96 08/17/20 02:00 128 H 36 H 96 08/17/20 01:45 129 H 36 H 96 08/17/20 01:30 106.2 F H 129 H 34 H 96 08/17/20 01:15 129 H 38 H 136/50 95 08/17/20 01:00 106.7 F H 130 H 37 H 95 08/17/20 00:45 129 H 36 H 96 08/17/20 00:30 130 H 36 H 96 08/17/20 00:15 131 H 33 H 97 08/17/20 00:00 107.2 F H 131 H 36 H 98 08/16/20 23:45 130 H 30 H 96 08/16/20 23:30 131 H 36 H 96 08/16/20 23:15 130 H 36 H 96 08/16/20 23:00 130 H 37 H 97 08/16/20 22:46 130 H 16 08/16/20 22:45 130 H 37 H 08/16/20 22:30 107.4 F H 130 H 36 H 96 08/16/20 22:15 130 H 36 H 96 08/16/20 22:00 130 H 36 H 96 08/16/20 21:45 130 H 36 H 96 08/16/20 21:30 130 H 29 H 08/16/20 21:15 130 H 36 H 94 L 08/16/20 21:00 130 H 36 H 94 L 08/16/20 20:45 130 H 36 H 113/82 94 L 08/16/20 20:30 130 H 36 H 94 L 08/16/20 20:15 130 H 36 H 94 L 08/16/20 20:00 107.1 F H 129 H 36 H 94 L 08/16/20 19:45 130 H 36 H 93 L 08/16/20 19:30 130 H 36 H 94 L 08/16/20 19:15 131 H 36 H 94 L 08/16/20 19:00 131 H 36 H 90 L 08/16/20 18:45 130 H 36 H 90 L 08/16/20 18:30 131 H 36 H 92 L 08/16/20 18:15 105.4 F H 137 H 28 H 96 08/16/20 18:00 138 H 36 H 96 08/16/20 17:45 140 H 36 H 97 08/16/20 17:30 140 H 36 H 98 08/16/20 17:15 138 H 36 H 86 L 08/16/20 17:00 140 H 36 H 95 08/16/20 16:45 141 H 36 H 96 08/16/20 16:30 142 H 36 H 95 08/16/20 16:15 144 H 3 L 96 08/16/20 16:00 142 H 36 H 96 08/16/20 15:45 137 H 36 H 96 08/16/20 15:30 107.1 F H 08/16/20 14:51 133 H 18 74/59 92 L 08/16/20 14:35 134 H 24 80/64 92 L 08/16/20 14:00 135 H 18 73/61 91 L Intake and Output 08/16/20 08/17/20 08/17/20 22:59 06:59 14:59 Intake Total 2189.205 4388.844 828.235 Output Total 75 5 5 Balance 6976.895 2868.844 823.235 Intake: IV 910 1040 650 Dextrose 5% in Water 1, 390 000 ml @ 130 mls/hr IV . Q8H51M MICHAELA with Sodium Bicarb (1 Meq/ml) 150 ml Rx#:[id number] Sodium Chloride 0.9% 1, 910 1040 260 000 ml @ 130 mls/hr IV . Q7H42M [facility] Rx#:[id number] Intake, IV Titration 494.157 579.844 178.235 Amount Cisatracurium 200 mg In 63.946 57.021 Sodium Chloride 0.9% 180 ml @ 1 MCG/KG/MIN 6.755 mls/hr IV .Q24H [facility] Rx#: [id number] Heparin Sod,Pork in 0.45% 112.633 NaCl 25,000 unit In 0.45 % NaCl 1 250ml.bag @ 8.88 UNITS/KG/HR 9.997 mls/hr IV .Q24H [facility] Rx#: [id number] Insulin Regular 100 unit 137.764 122.833 23.887 In Sodium Chloride 0.9% 100 ml @ Per Protocol IV .Q0M [facility] Rx#:[id number] Norepinephrine 32 mg In 232.093 235.008 63.328 Sodium Chloride 0.9% 218 ml @ 0.05 MCG/KG/MIN 2. 639 mls/hr IV .Q24H [facility] Rx#:[id number] Norepinephrine 32 mg In 25.331 Sodium Chloride 0.9% 218 ml @ 0.55 MCG/KG/MIN 29. 025 mls/hr IV .Q8H37M [facility] Rx#:[id number] propofoL 1,000 mg In 60.354 52.349 65.689 Empty Bag 1 bag @ Titrate IV .Q0M [facility] Rx#: [id number] Output: Urine 75 5 5 Other: Voiding Method Indwelling Catheter Indwelling Catheter Indwelling Catheter # Voids 0 Weight 125.5 kg ABP, PAP, CO, CI - Last 8 Hours Arterial Blood Pressure 100/78 Arterial Blood Pressure 106/82 Arterial Blood Pressure 104/79 Arterial Blood Pressure 101/76 Arterial Blood Pressure 87/71 Arterial Blood Pressure 91/70 Arterial Blood Pressure 101/76 Arterial Blood Pressure 103/80 Arterial Blood Pressure 104/79 Arterial Blood Pressure 113/86 Arterial Blood Pressure 100/76 Arterial Blood Pressure 100/75 Arterial Blood Pressure 99/74 Arterial Blood Pressure 99/74 Arterial Blood Pressure 104/75 Arterial Blood Pressure 92/72 Arterial Blood Pressure 102/73 Arterial Blood Pressure 98/75 Arterial Blood Pressure 89/69 Arterial Blood Pressure 88/68 Arterial Blood Pressure 95/69 Arterial Blood Pressure 87/68 Arterial Blood Pressure 94/74 Arterial Blood Pressure 92/73 Arterial Blood Pressure 88/72 Arterial Blood Pressure 90/72 Arterial Blood Pressure 89/72 Arterial Blood Pressure 88/71 Results - Lab Results Most recent lab results ABG pH 7.07 (7.35-7.45) L* 08/17/20 05:30 ABG pCO2 64 mmHg (35-45) H 08/17/20 05:30 ABG pO2 92 mmHg (83-108) 08/17/20 05:30 ABG HCO3 19 mmol/L (21-25) L 08/17/20 05:30 ABG O2 Saturation 95.9 % (94-97) 08/17/20 05:30 Calcium 4.6 mg/dL (8.4-10.2) L* 08/17/20 04:00 Magnesium 2.4 mg/dL (1.6-2.3) H 08/16/20 04:47 08/17/20 04:00 08/17/20 10:50 Assessment and Plan Plan: Assessment: 1. Acute kidney injury secondary to ATN secondary to cardiopulmonary arrest. Baseline creatinine near 1 and is elevated at 3.53 today. 2. Status post PEA arrest. 3. Acute hypoxic respiratory failure secondary to covid-19 currently on 100% FiO2 support. 4. Covid-19 infection/pneumonia. 5. Metabolic acidosis secondary to acute kidney injury maintained on bicarb drip. 6. Hyperkalemia secondary to acute kidney injury and metabolic acidosis. Now hypokalemic and was replaced this morning. 7. Hypocalcemia secondary to acute kidney injury. Replaced. 8. Right lower extremity DVT. 9. Shock liver. 10. Acute systolic CHF with ejection fraction of 20-25%. Plan: Maintain bicarb drip. Monitor electrolytes closely. Replace potassium cautiously as oliguric. Calcium was replaced this morning. Rechecked this evening. Wean FiO2 and vasopressors as able. Continue to monitor renal function and urine output. Currently the patient is hemodynamically very unstable to tolerate renal replacement therapy. Continue to assess on a daily basis. Overall prognosis guarded. Thank you for the consultation. I will continue to follow the patient with you during his hospital stay.
[2020-08-17 13:05] VITALS: TEMP 98.6
[2020-08-17 13:15] LABS: Glucose,Whole Blood 174 mg/dL (75-99)
[2020-08-17 14:11] LABS: Glucose,Whole Blood 181 mg/dL (75-99)
[2020-08-17] MEDS ORDERED: SODIUM BICARB 8.4% 50 ML SYR (1 MEQ/ML) ONE ×2 (14:58→15:05)
[2020-08-17] MEDS ORDERED: CALCIUM CHLORIDE 100 MG/ML 10 ML SYRINGE ONE (14:58)
[2020-08-17] MEDS ORDERED: AMIODARONE 50 MG/ML 3 ML VIAL IV ONE (14:58)
[2020-08-17] MEDS ORDERED: EPINEPHrine 10 ML SYRINGE (0.1 MG/ML) ONE (14:58)
[2020-08-17] MEDS ORDERED: MAGNESIUM SULFATE SYG 4.06 MEQ/ML SYRINGE ONE (14:58)
[2020-08-17 15:06] LABS: Glucose,Whole Blood 174 mg/dL (75-99)
[2020-08-17] MEDS ORDERED: AMIODARONE 360 MG in DEXTROSE 5% IN WATER 200 ML IV ONE ×2 (15:30)
[2020-08-17 16:03] VITALS: RESP 36
[2020-08-17 16:11] LABS: Glucose,Whole Blood 174 mg/dL (75-99)
[2020-08-17] MEDS ORDERED: LORazepam 2 MG/ML INJ IV PRN (16:27)
[2020-08-17] MEDS ORDERED: MORPHINE SULFATE 4 MG/ML SYRINGE IV PRN (16:27)
[2020-08-17] MEDS ORDERED: MORPHINE SULFATE 2 MG/ML SYRINGE IV PRN (16:27)
[2020-08-17 16:37] LABS: HCT 43.7 % (39.0-53.0); HGB 13.6 gm/dL (13.0-17.5); Hypochromasia Moderate; MCH 28.9 pg (25.0-35.0); MCV 93.1 fL (80.0-100.0); RDW 14.5 % (11.5-15.5); WBC 14.7 k/uL (3.8-10.6)
[2020-08-17 17:04] VITALS: BP 131/93; PULSE 130
[2020-08-17 18:05] LABS: Hemoglobin A1C 11.9 % (4.0-6.0)
[2020-08-17 18:34] LABS: Albumin 1.7 g/dL (3.5-5.0); Calcium 7.2 mg/dL (8.4-10.2); Potassium 3.9 mmol/L (3.5-5.1); Total Bilirubin 1.5 mg/dL (0.2-1.3); Total Protein 3.9 g/dL (6.3-8.2)
[2020-08-17 19:08] LABS: Band Neutrophils % 3 %; Lymphocytes # (M) 1.47 k/uL (1.0-4.8); Metamyelocytes # (M) 0.15 k/uL (0); Metamyelocytes % 1 %; Monocytes # (M) 0.15 k/uL (0-1.0); Neutrophils % (M) 86 %; Nucleated Red Blood Cells 0 /100 WBC (0-0); Total Cells Counted 200
[2020-08-17 19:09] LABS: Platelet Count 59 k/uL (150-450)
[2020-08-18] MEDS ORDERED: FAMOTIDINE 20 MG/2 ML VIAL IV SCH (09:00)
--- NOTE | 2020-08-19 20:49 | CDI ---
Documentation Clarification Form Date: 08/19/2020 08:34:11 PM From: Jessica Roper RN, CCDS Admit Date: 08/16/2020 06:32:00 AM Patient Name: Jeff Krishnan Visit Number: [id number] Discharge Date: 08/17/2020 08:02:00 PM ATTENTION: The Clinical Documentation Specialists (CDI) and [facility] Coding Staff appreciate your assistance in clarifying documentation. Please respond to the clarification below the line at the bottom and electronically sign. The CDI & [facility] Coding staff will review the response and follow-up if needed. Please note: Queries are made part of the Legal Health Record. If you have any questions, please contact the author of this message via ITS. Dr. Rothman E Sheet The patient presented with the following clinical indicators. Additional clarification regarding the etiology/cause of the clinical indicators is requested as conflicting documentation regarding sepsis between providers has been found. History/Risk Factors: DM2, HTN, RA, Cad with stents, ex-smoker Clinical Indicators: 08/16 H&P: "Assessment: Acute Covid infection with acute bilateral pneumonia, septic shock, acute hypoxic hypercapnic respiratory failure, status post intubation and mechanical ventilation. Plan: This is a 54 years old male who presents with septic shock, bilateral Covid pneumonia, elevated troponin, acidosis and respiratory failure." 08/16-08/17 Pulmonary consult and progress note: "Lactic acidosis, related to cardiac arrest and not related to sepsis based on the pro-calcitonin level, and the lactic acid level is improved." 08/16-08/17 WBC:19/17.7/7.8/14.7 08/16-08/17 Lactic acid: 5.1/3.3/2.6/3.6 Blood cultures: no cultures done 08/17 0000 Vital signs: Temp 107.2, HR 131, RR 36, B/P 101/71, Spo2 98% on 100% MV Documented end organ damage: ROBERTO with ATN, Shock Liver, NSTEMI, Cardiac Arrest, Acute Hypoxic/Hypercapnic Respiratory Failure Documented Infection: Covid 19 pneumonia Treatment: ID Consult: not ordered Antibiotics: 08/16 Zosyn 3.375 gm IVPB OT IV Bolus: 08/16 3L 0.9% NS IVF bolus followed by 130 cc/hr. x 2L 08/16 IV Solucortef 100 mg OT 08/17 IV Decadron 6 mg IVP QD Levophed Gtt titrate for B/P Vasopressin .04 units/min Tocilizumab 800 mg IVPB OT In your professional opinion, please clarify if these findings signify one of the following conditions: [ ] Sepsis with Septic Shock POA [ ] Sepsis with Septic Shock Not POA [ ] Sepsis ruled out [ ] Severe Sepsis with organ failure [ ] Other, please specify [ ] Unable to determine SIRS Criteria: 2 or more of the following may indicate SIRS -Temperature < 96.8F (36C) or > 101.0F (38.3C) -Heart Rate > 90 bpm -Respiratory Rate > 20 breaths/min or PaCO2 < 32 mmHg -White Blood Cell Count > 12,000 or < 4,000 cells/mm3 or > 10% bands (Template Last Reviewed: June 2020) sever sepsis and septic shock present on admission MTDD
--- NOTE | 2020-08-24 14:47 | P.PN ---
Subjective This is a pleasant 54 years old male with past medical history of diabetes mellitus, hyperlipidemia, hypertension, rheumatoid arthritis, diabetic ne uropathy. History of coronary artery disease status post stent to RCA branches. He is a patient of Dr. Hilliard. Patient cannot provide information Was obtained from the records and staff. Patient originally came for dyspnea, he was a known case of Covid infection, he was hypertensive and he was on BiPAP on arrival. Per EMS of his oxygen saturation was reading 50% Patient is afebrile currently he had low-grade temperature 96.8 on admission. He is tachycardic and 140s, breathing rate was in 50s on admission currently at 24 after intubation. Blood pressure currently is 98/74 with Levophed infusion. INR is 1.2, d-dimer is elevated more than 34 ABG sewn acidosis 6.9 and 7.0, pCO2 is elevated 82 and 86, PaO2 is low 46 corrected to 91. Labs show leukocytosis 19.0 K, hemoglobin 15.8. Probecalcitonin is only mildly elevated at 0.16. LDH is high at 05/14/1992, C- reactive protein elevated 174. Lactic acid elevated to 11.1, came down to 5.1. BMP is unremarkable except for high glucose at 304. Magnesium 2.4, liver enzymes not elevated, bilirubin is normal. Urine analysis showing no infection but glucosuria. Barrett virus detected. Troponin are elevated at 0.9 and 14.1 Probe BNP is 3240 Chest x-ray: Diffuse bilateral consolidation compatible with bilateral pneumonia, probably atypical pneumonia Patient in the emergency room was started on Lovenox 50 mg twice a day, Pepcid, insulin, morphine, norepinephrine drip, one-time dose of Zosyn. Bicarbonate drip, several doses of normal saline about 4 L. Also 1 dose of tocilizumab His ventilation setting showing a breathing rate around 32, tidal volume 500, FiO2 of 100% and PEEP of 60 05/19/2023 pt remained in the icu in critical condition , intubated on mechanical ventilattion , followed closely by ICU team and cardiology team , as per their note pt with anterior ST-segment elevation myocardial infaction . please refer to their notes for more details pt eventually got coded and family decided comfort care and eventually he is , see RN note for more details Objective - Vital Signs Vital signs: Vital Signs Temp 98.6 F 08/17/20 12:00 Pulse 128 H 08/17/20 13:00 Resp 36 H 08/17/20 13:00 BP 122/88 08/17/20 13:00 Pulse Ox 100 08/17/20 13:00 Intake & Output 08/16/20 08/17/20 08/17/20 18:59 06:59 18:59 Intake Total 027.069 8800.276 1161.055 Output Total 75 5 15 Balance 125.415 6492.276 1146.055 Weight 112.582 kg 125.5 kg Intake: IV 390 1560 910 Dextrose 5% in Water 1, 650 000 ml @ 130 mls/hr IV . Q8H51M MICHAELA with Sodium Bicarb (1 Meq/ml) 150 ml Rx#:[id number] Sodium Chloride 0.9% 1, 390 1560 260 000 ml @ 130 mls/hr IV . Q7H42M MICHAELA Rx#:[id number] Intake, IV Titration 550.476 808.276 251.055 Amount Cisatracurium 200 mg In 52.801 104.756 Sodium Chloride 0.9% 180 ml @ 1 MCG/KG/MIN 6.755 mls/hr IV .Q24H [facility] Rx#: [id number] Heparin Sod,Pork in 0.45% 112.633 NaCl 25,000 unit In 0.45 % NaCl 1 250ml.bag @ 8.88 UNITS/KG/HR 9.997 mls/hr IV .Q24H [facility] Rx#: [id number] Insulin Regular 100 unit 47.487 213.110 42.403 In Sodium Chloride 0.9% 100 ml @ Per Protocol IV .Q0M MICHAELA Rx#:[id number] Norepinephrine 32 mg In 411.750 278.314 63.328 Sodium Chloride 0.9% 218 ml @ 0.05 MCG/KG/MIN 2. 639 mls/hr IV .Q24H [facility] Rx#:[id number] Norepinephrine 32 mg In 79.635 Sodium Chloride 0.9% 218 ml @ 0.55 MCG/KG/MIN 29. 025 mls/hr IV .Q8H37M MICHAELA Rx#:[id number] propofoL 1,000 mg In 38.438 99.463 65.689 Empty Bag 1 bag @ Titrate IV .Q0M [facility] Rx#: [id number] Output: Urine 75 5 15 Other: Voiding Method Indwelling Catheter Indwelling Catheter Indwelling Catheter # Voids 0 0 ABP, PAP, CO, CI - Last Documented Arterial Blood Pressure 84/71 - Exam pt - Labs CBC & Chem 7: 08/17/20 15:45 08/17/20 15:45 Labs: Abnormal Lab Results - Last 24 Hours (Table) 08/16/20 08/16/20 08/16/20 Range/Units 15:20 15:40 16:00 WBC (3.8-10.6) k/uL RBC (4.30-5.90) m/uL Hgb (13.0-17.5) gm/dL MCHC (31.0-37.0) g/dL Plt Count (150-450) k/uL Neutrophils # (Manual) (1.3-7.7) k/uL Lymphocytes # (Manual) (1.0-4.8) k/uL Metamyelocytes # (Man) (0) k/uL Myelocytes # (Manual) (0) k/uL Nucleated RBCs (0-0) /100 WBC PT (9.0-12.0) sec INR (<1.2) APTT (22.0-30.0) sec D-Dimer (<0.60) mg/L FEU ABG pH 7.07 L* (7.35-7.45) ABG pCO2 71 H* (35-45) mmHg ABG HCO3 (21-25) mmol/L ABG Lactic Acid (0.5-1.6) mmol/L Potassium (3.5-5.1) mmol/L Chloride (98-107) mmol/L Carbon Dioxide (22-30) mmol/L BUN (9-20) mg/dL Creatinine (0.66-1.25) mg/dL Glucose (74-99) mg/dL POC Glucose (mg/dL) 401 H (75-99) mg/dL Plasma Lactic Acid Ino (0.7-2.0) mmol/L Calcium (8.4-10.2) mg/dL AST (17-59) U/L ALT (4-49) U/L Alkaline Phosphatase (38-126) U/L Lactate Dehydrogenase (313-618) U/L Troponin I 66.400 H* (0.000-0.034) ng/mL C-Reactive Protein (<10.0) mg/L Total Protein (6.3-8.2) g/dL Albumin (3.5-5.0) g/dL TSH (0.465-4.680) mIU/L 08/16/20 08/16/20 08/16/20 Range/Units 16:00 16:00 16:00 WBC 17.7 H (3.8-10.6) k/uL RBC (4.30-5.90) m/uL Hgb (13.0-17.5) gm/dL MCHC 29.6 L (31.0-37.0) g/dL Plt Count (150-450) k/uL Neutrophils # (Manual) 13.80 H (1.3-7.7) k/uL Lymphocytes # (Manual) (1.0-4.8) k/uL Metamyelocytes # (Man) 1.06 H (0) k/uL Myelocytes # (Manual) 1.06 H (0) k/uL Nucleated RBCs 2 H (0-0) /100 WBC PT (9.0-12.0) sec INR (<1.2) APTT (22.0-30.0) sec D-Dimer (<0.60) mg/L FEU ABG pH (7.35-7.45) ABG pCO2 (35-45) mmHg ABG HCO3 (21-25) mmol/L ABG Lactic Acid 3.1 H* (0.5-1.6) mmol/L Potassium 6.1 H* (3.5-5.1) mmol/L Chloride (98-107) mmol/L Carbon Dioxide 20 L (22-30) mmol/L BUN 32 H (9-20) mg/dL Creatinine 2.61 H (0.66-1.25) mg/dL Glucose 427 H (74-99) mg/dL POC Glucose (mg/dL) (75-99) mg/dL Plasma Lactic Acid Ino (0.7-2.0) mmol/L Calcium 6.9 L (8.4-10.2) mg/dL AST 3163 H (17-59) U/L ALT 1417 H (4-49) U/L Alkaline Phosphatase 264 H (38-126) U/L Lactate Dehydrogenase (313-618) U/L Troponin I (0.000-0.034) ng/mL C-Reactive Protein (<10.0) mg/L Total Protein 5.0 L (6.3-8.2) g/dL Albumin 2.5 L (3.5-5.0) g/dL TSH 0.210 L (0.465-4.680) mIU/L 08/16/20 08/16/20 08/16/20 Range/Units 16:45 17:15 17:59 WBC (3.8-10.6) k/uL RBC (4.30-5.90) m/uL Hgb (13.0-17.5) gm/dL MCHC (31.0-37.0) g/dL Plt Count (150-450) k/uL Neutrophils # (Manual) (1.3-7.7) k/uL Lymphocytes # (Manual) (1.0-4.8) k/uL Metamyelocytes # (Man) (0) k/uL Myelocytes # (Manual) (0) k/uL Nucleated RBCs (0-0) /100 WBC PT (9.0-12.0) sec INR (<1.2) APTT (22.0-30.0) sec D-Dimer (<0.60) mg/L FEU ABG pH (7.35-7.45) ABG pCO2 (35-45) mmHg ABG HCO3 (21-25) mmol/L ABG Lactic Acid (0.5-1.6) mmol/L Potassium (3.5-5.1) mmol/L Chloride (98-107) mmol/L Carbon Dioxide (22-30) mmol/L BUN (9-20) mg/dL Creatinine (0.66-1.25) mg/dL Glucose (74-99) mg/dL POC Glucose (mg/dL) 376 H 398 H 438 H (75-99) mg/dL Plasma Lactic Acid Ino (0.7-2.0) mmol/L Calcium (8.4-10.2) mg/dL AST (17-59) U/L ALT (4-49) U/L Alkaline Phosphatase (38-126) U/L Lactate Dehydrogenase (313-618) U/L Troponin I (0.000-0.034) ng/mL C-Reactive Protein (<10.0) mg/L Total Protein (6.3-8.2) g/dL Albumin (3.5-5.0) g/dL TSH (0.465-4.680) mIU/L 08/16/20 08/16/20 08/16/20 Range/Units 18:00 18:00 18:49 WBC (3.8-10.6) k/uL RBC (4.30-5.90) m/uL Hgb (13.0-17.5) gm/dL MCHC (31.0-37.0) g/dL Plt Count (150-450) k/uL Neutrophils # (Manual) (1.3-7.7) k/uL Lymphocytes # (Manual) (1.0-4.8) k/uL Metamyelocytes # (Man) (0) k/uL Myelocytes # (Manual) (0) k/uL Nucleated RBCs (0-0) /100 WBC PT 16.8 H (9.0-12.0) sec INR 1.7 H (<1.2) APTT 34.2 H (22.0-30.0) sec D-Dimer (<0.60) mg/L FEU ABG pH (7.35-7.45) ABG pCO2 (35-45) mmHg ABG HCO3 (21-25) mmol/L ABG Lactic Acid (0.5-1.6) mmol/L Potassium (3.5-5.1) mmol/L Chloride (98-107) mmol/L Carbon Dioxide (22-30) mmol/L BUN (9-20) mg/dL Creatinine (0.66-1.25) mg/dL Glucose (74-99) mg/dL POC Glucose (mg/dL) 378 H (75-99) mg/dL Plasma Lactic Acid Ino 3.9 H* (0.7-2.0) mmol/L Calcium (8.4-10.2) mg/dL AST (17-59) U/L ALT (4-49) U/L Alkaline Phosphatase (38-126) U/L Lactate Dehydrogenase (313-618) U/L Troponin I (0.000-0.034) ng/mL C-Reactive Protein (<10.0) mg/L Total Protein (6.3-8.2) g/dL Albumin (3.5-5.0) g/dL TSH (0.465-4.680) mIU/L 08/16/20 08/16/20 08/16/20 Range/Units 20:49 20:50 22:22 WBC (3.8-10.6) k/uL RBC (4.30-5.90) m/uL Hgb (13.0-17.5) gm/dL MCHC (31.0-37.0) g/dL Plt Count (150-450) k/uL Neutrophils # (Manual) (1.3-7.7) k/uL Lymphocytes # (Manual) (1.0-4.8) k/uL Metamyelocytes # (Man) (0) k/uL Myelocytes # (Manual) (0) k/uL Nucleated RBCs (0-0) /100 WBC PT (9.0-12.0) sec INR (<1.2) APTT (22.0-30.0) sec D-Dimer (<0.60) mg/L FEU ABG pH (7.35-7.45) ABG pCO2 (35-45) mmHg ABG HCO3 (21-25) mmol/L ABG Lactic Acid (0.5-1.6) mmol/L Potassium (3.5-5.1) mmol/L Chloride (98-107) mmol/L Carbon Dioxide (22-30) mmol/L BUN (9-20) mg/dL Creatinine (0.66-1.25) mg/dL Glucose (74-99) mg/dL POC Glucose (mg/dL) 352 H 309 H (75-99) mg/dL Plasma Lactic Acid Ino 3.3 H* (0.7-2.0) mmol/L Calcium (8.4-10.2) mg/dL AST (17-59) U/L ALT (4-49) U/L Alkaline Phosphatase (38-126) U/L Lactate Dehydrogenase (313-618) U/L Troponin I (0.000-0.034) ng/mL C-Reactive Protein (<10.0) mg/L Total Protein (6.3-8.2) g/dL Albumin (3.5-5.0) g/dL TSH (0.465-4.680) mIU/L 08/17/20 08/17/20 08/17/20 Range/Units 00:00 00:00 00:00 WBC (3.8-10.6) k/uL RBC (4.30-5.90) m/uL Hgb (13.0-17.5) gm/dL MCHC (31.0-37.0) g/dL Plt Count (150-450) k/uL Neutrophils # (Manual) (1.3-7.7) k/uL Lymphocytes # (Manual) (1.0-4.8) k/uL Metamyelocytes # (Man) (0) k/uL Myelocytes # (Manual) (0) k/uL Nucleated RBCs (0-0) /100 WBC PT (9.0-12.0) sec INR (<1.2) APTT 58.9 H (22.0-30.0) sec D-Dimer (<0.60) mg/L FEU ABG pH (7.35-7.45) ABG pCO2 (35-45) mmHg ABG HCO3 (21-25) mmol/L ABG Lactic Acid (0.5-1.6) mmol/L Potassium (3.5-5.1) mmol/L Chloride (98-107) mmol/L Carbon Dioxide (22-30) mmol/L BUN (9-20) mg/dL Creatinine (0.66-1.25) mg/dL Glucose (74-99) mg/dL POC Glucose (mg/dL) (75-99) mg/dL Plasma Lactic Acid Ino (0.7-2.0) mmol/L Calcium (8.4-10.2) mg/dL AST (17-59) U/L ALT (4-49) U/L Alkaline Phosphatase (38-126) U/L Lactate Dehydrogenase 1804 H (313-618) U/L Troponin I 72.100 H* (0.000-0.034) ng/mL C-Reactive Protein 181.2 H (<10.0) mg/L Total Protein (6.3-8.2) g/dL Albumin (3.5-5.0) g/dL TSH (0.465-4.680) mIU/L 08/17/20 08/17/20 08/17/20 Range/Units 00:00 00:11 01:05 WBC (3.8-10.6) k/uL RBC (4.30-5.90) m/uL Hgb (13.0-17.5) gm/dL MCHC (31.0-37.0) g/dL Plt Count (150-450) k/uL Neutrophils # (Manual) (1.3-7.7) k/uL Lymphocytes # (Manual) (1.0-4.8) k/uL Metamyelocytes # (Man) (0) k/uL Myelocytes # (Manual) (0) k/uL Nucleated RBCs (0-0) /100 WBC PT (9.0-12.0) sec INR (<1.2) APTT (22.0-30.0) sec D-Dimer (<0.60) mg/L FEU ABG pH (7.35-7.45) ABG pCO2 (35-45) mmHg ABG HCO3 (21-25) mmol/L ABG Lactic Acid (0.5-1.6) mmol/L Potassium (3.5-5.1) mmol/L Chloride (98-107) mmol/L Carbon Dioxide (22-30) mmol/L BUN (9-20) mg/dL Creatinine (0.66-1.25) mg/dL Glucose (74-99) mg/dL POC Glucose (mg/dL) 299 H 290 H (75-99) mg/dL Plasma Lactic Acid Ino 2.8 H* (0.7-2.0) mmol/L Calcium (8.4-10.2) mg/dL AST (17-59) U/L ALT (4-49) U/L Alkaline Phosphatase (38-126) U/L Lactate Dehydrogenase (313-618) U/L Troponin I (0.000-0.034) ng/mL C-Reactive Protein (<10.0) mg/L Total Protein (6.3-8.2) g/dL Albumin (3.5-5.0) g/dL TSH (0.465-4.680) mIU/L 04/04/2708/17/20 08/17/20 Range/Units 02:59 03:55 04:00 WBC (3.8-10.6) k/uL RBC (4.30-5.90) m/uL Hgb (13.0-17.5) gm/dL MCHC (31.0-37.0) g/dL Plt Count (150-450) k/uL Neutrophils # (Manual) (1.3-7.7) k/uL Lymphocytes # (Manual) (1.0-4.8) k/uL Metamyelocytes # (Man) (0) k/uL Myelocytes # (Manual) (0) k/uL Nucleated RBCs (0-0) /100 WBC PT 21.3 H (9.0-12.0) sec INR 2.2 H (<1.2) APTT 86.5 H (22.0-30.0) sec D-Dimer >34.10 H (<0.60) mg/L FEU ABG pH (7.35-7.45) ABG pCO2 (35-45) mmHg ABG HCO3 (21-25) mmol/L ABG Lactic Acid (0.5-1.6) mmol/L Potassium (3.5-5.1) mmol/L Chloride (98-107) mmol/L Carbon Dioxide (22-30) mmol/L BUN (9-20) mg/dL Creatinine (0.66-1.25) mg/dL Glucose (74-99) mg/dL POC Glucose (mg/dL) 247 H 231 H (75-99) mg/dL Plasma Lactic Acid Ino (0.7-2.0) mmol/L Calcium (8.4-10.2) mg/dL AST (17-59) U/L ALT (4-49) U/L Alkaline Phosphatase (38-126) U/L Lactate Dehydrogenase (313-618) U/L Troponin I (0.000-0.034) ng/mL C-Reactive Protein (<10.0) mg/L Total Protein (6.3-8.2) g/dL Albumin (3.5-5.0) g/dL TSH (0.465-4.680) mIU/L 08/17/20 08/17/20 08/17/20 Range/Units 04:00 04:00 04:00 WBC (3.8-10.6) k/uL RBC 4.15 L (4.30-5.90) m/uL Hgb 11.9 L D (13.0-17.5) gm/dL MCHC 29.9 L (31.0-37.0) g/dL Plt Count 102 L D (150-450) k/uL Neutrophils # (Manual) (1.3-7.7) k/uL Lymphocytes # (Manual) 0.39 L (1.0-4.8) k/uL Metamyelocytes # (Man) 0.16 H (0) k/uL Myelocytes # (Manual) 0.23 H (0) k/uL Nucleated RBCs 5 H (0-0) /100 WBC PT (9.0-12.0) sec INR (<1.2) APTT (22.0-30.0) sec D-Dimer (<0.60) mg/L FEU ABG pH (7.35-7.45) ABG pCO2 (35-45) mmHg ABG HCO3 (21-25) mmol/L ABG Lactic Acid (0.5-1.6) mmol/L Potassium 2.7 L* (3.5-5.1) mmol/L Chloride 119 H (98-107) mmol/L Carbon Dioxide 15 L (22-30) mmol/L BUN 37 H (9-20) mg/dL Creatinine 3.53 H (0.66-1.25) mg/dL Glucose 184 H (74-99) mg/dL POC Glucose (mg/dL) (75-99) mg/dL Plasma Lactic Acid Ino 2.6 H* (0.7-2.0) mmol/L Calcium 4.6 L* (8.4-10.2) mg/dL AST 8852 H (17-59) U/L ALT 2082 H (4-49) U/L Alkaline Phosphatase 199 H (38-126) U/L Lactate Dehydrogenase (313-618) U/L Troponin I (0.000-0.034) ng/mL C-Reactive Protein (<10.0) mg/L Total Protein 3.4 L (6.3-8.2) g/dL Albumin 1.5 L (3.5-5.0) g/dL TSH (0.465-4.680) mIU/L 08/17/20 08/17/20 08/17/20 Range/Units 05:30 06:05 07:52 WBC (3.8-10.6) k/uL RBC (4.30-5.90) m/uL Hgb (13.0-17.5) gm/dL MCHC (31.0-37.0) g/dL Plt Count (150-450) k/uL Neutrophils # (Manual) (1.3-7.7) k/uL Lymphocytes # (Manual) (1.0-4.8) k/uL Metamyelocytes # (Man) (0) k/uL Myelocytes # (Manual) (0) k/uL Nucleated RBCs (0-0) /100 WBC PT (9.0-12.0) sec INR (<1.2) APTT (22.0-30.0) sec D-Dimer (<0.60) mg/L FEU ABG pH 7.07 L* (7.35-7.45) ABG pCO2 64 H (35-45) mmHg ABG HCO3 19 L (21-25) mmol/L ABG Lactic Acid (0.5-1.6) mmol/L Potassium (3.5-5.1) mmol/L Chloride (98-107) mmol/L Carbon Dioxide (22-30) mmol/L BUN (9-20) mg/dL Creatinine (0.66-1.25) mg/dL Glucose (74-99) mg/dL POC Glucose (mg/dL) 172 H 136 H (75-99) mg/dL Plasma Lactic Acid Ino (0.7-2.0) mmol/L Calcium (8.4-10.2) mg/dL AST (17-59) U/L ALT (4-49) U/L Alkaline Phosphatase (38-126) U/L Lactate Dehydrogenase (313-618) U/L Troponin I (0.000-0.034) ng/mL C-Reactive Protein (<10.0) mg/L Total Protein (6.3-8.2) g/dL Albumin (3.5-5.0) g/dL TSH (0.465-4.680) mIU/L 08/17/20 08/17/20 08/17/20 Range/Units 08:52 10:08 10:54 WBC (3.8-10.6) k/uL RBC (4.30-5.90) m/uL Hgb (13.0-17.5) gm/dL MCHC (31.0-37.0) g/dL Plt Count (150-450) k/uL Neutrophils # (Manual) (1.3-7.7) k/uL Lymphocytes # (Manual) (1.0-4.8) k/uL Metamyelocytes # (Man) (0) k/uL Myelocytes # (Manual) (0) k/uL Nucleated RBCs (0-0) /100 WBC PT (9.0-12.0) sec INR (<1.2) APTT (22.0-30.0) sec D-Dimer (<0.60) mg/L FEU ABG pH (7.35-7.45) ABG pCO2 (35-45) mmHg ABG HCO3 (21-25) mmol/L ABG Lactic Acid (0.5-1.6) mmol/L Potassium (3.5-5.1) mmol/L Chloride (98-107) mmol/L Carbon Dioxide (22-30) mmol/L BUN (9-20) mg/dL Creatinine (0.66-1.25) mg/dL Glucose (74-99) mg/dL POC Glucose (mg/dL) 147 H 132 H 153 H (75-99) mg/dL Plasma Lactic Acid Ino (0.7-2.0) mmol/L Calcium (8.4-10.2) mg/dL AST (17-59) U/L ALT (4-49) U/L Alkaline Phosphatase (38-126) U/L Lactate Dehydrogenase (313-618) U/L Troponin I (0.000-0.034) ng/mL C-Reactive Protein (<10.0) mg/L Total Protein (6.3-8.2) g/dL Albumin (3.5-5.0) g/dL TSH (0.465-4.680) mIU/L 08/17/20 08/17/20 08/17/20 Range/Units 12:05 13:09 13:09 WBC (3.8-10.6) k/uL RBC (4.30-5.90) m/uL Hgb (13.0-17.5) gm/dL MCHC (31.0-37.0) g/dL Plt Count (150-450) k/uL Neutrophils # (Manual) (1.3-7.7) k/uL Lymphocytes # (Manual) (1.0-4.8) k/uL Metamyelocytes # (Man) (0) k/uL Myelocytes # (Manual) (0) k/uL Nucleated RBCs (0-0) /100 WBC PT (9.0-12.0) sec INR (<1.2) APTT 37.2 H (22.0-30.0) sec D-Dimer (<0.60) mg/L FEU ABG pH (7.35-7.45) ABG pCO2 (35-45) mmHg ABG HCO3 (21-25) mmol/L ABG Lactic Acid (0.5-1.6) mmol/L Potassium (3.5-5.1) mmol/L Chloride (98-107) mmol/L Carbon Dioxide (22-30) mmol/L BUN (9-20) mg/dL Creatinine (0.66-1.25) mg/dL Glucose (74-99) mg/dL POC Glucose (mg/dL) 163 H (75-99) mg/dL Plasma Lactic Acid Ino 3.6 H* (0.7-2.0) mmol/L Calcium (8.4-10.2) mg/dL AST (17-59) U/L ALT (4-49) U/L Alkaline Phosphatase (38-126) U/L Lactate Dehydrogenase (313-618) U/L Troponin I (0.000-0.034) ng/mL C-Reactive Protein (<10.0) mg/L Total Protein (6.3-8.2) g/dL Albumin (3.5-5.0) g/dL TSH (0.465-4.680) mIU/L 08/17/20 08/17/20 Range/Units 13:13 14:09 WBC (3.8-10.6) k/uL RBC (4.30-5.90) m/uL Hgb (13.0-17.5) gm/dL MCHC (31.0-37.0) g/dL Plt Count (150-450) k/uL Neutrophils # (Manual) (1.3-7.7) k/uL Lymphocytes # (Manual) (1.0-4.8) k/uL Metamyelocytes # (Man) (0) k/uL Myelocytes # (Manual) (0) k/uL Nucleated RBCs (0-0) /100 WBC PT (9.0-12.0) sec INR (<1.2) APTT (22.0-30.0) sec D-Dimer (<0.60) mg/L FEU ABG pH (7.35-7.45) ABG pCO2 (35-45) mmHg ABG HCO3 (21-25) mmol/L ABG Lactic Acid (0.5-1.6) mmol/L Potassium (3.5-5.1) mmol/L Chloride (98-107) mmol/L Carbon Dioxide (22-30) mmol/L BUN (9-20) mg/dL Creatinine (0.66-1.25) mg/dL Glucose (74-99) mg/dL POC Glucose (mg/dL) 174 H 181 H (75-99) mg/dL Plasma Lactic Acid Ino (0.7-2.0) mmol/L Calcium (8.4-10.2) mg/dL AST (17-59) U/L ALT (4-49) U/L Alkaline Phosphatase (38-126) U/L Lactate Dehydrogenase (313-618) U/L Troponin I (0.000-0.034) ng/mL C-Reactive Protein (<10.0) mg/L Total Protein (6.3-8.2) g/dL Albumin (3.5-5.0) g/dL TSH (0.465-4.680) mIU/L Assessment and Plan Assessment: Acute covid infection with acute bilateral pneumonia Septic shock Acute hypoxic hypercapnic respiratory failure status post intubation and mechanical ventilation. 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
--- NOTE | 2020-08-25 07:43 | CDI ---
Documentation Clarification Form Date: 08/25/2020 07:33:00 AM From: Shara Lei Phone: Admit Date: 08/16/2020 06:32:00 AM Patient Name: Jeff Krishnan Visit Number: [id number] Discharge Date: 08/17/2020 08:02:00 PM ATTENTION: The Clinical Documentation Specialists (CDI) and [facility] Coding Staff appreciate your assistance in clarifying documentation. Please respond to the clarification below the line at the bottom and electronically sign. The CDI & [facility] Coding staff will review the response and follow-up if needed. Please note: Queries are made part of the Legal Health Record. If you have any questions, please contact the author of this message via ITS. Dr. Rothman Sheet, Your patient has an abnormal lab value: [id number] on 08/16. Please clarify if there is an additional diagnosis and/or clinical significance related to this value. History/Risk Factors: Covid 19 w sepsis and coronavirus pneumonia, severe sepsis Clinical indicators: Type II Diabetic. BMP is unremarkable except for high glucose at 304. Treatment: Insulin Regular, Hypoglycemia protocol, Is there an additional diagnosis and/or clinical significance related to the above lab result/information? [ ] [DM type 2 with hyperglycemia POA [ ] No additional diagnosis/Not clinically significant [ ] Other, please specify [ ] Unable to determine MTDD
== END 2020-08-17 20:02 | disposition expired | DRG 871 ==
LOC: EC 04:27 → 2SICU 06:32
PROVIDERS: ADMIT Internal Medicine; ATTEND Internal Medicine
PROC: 5A1945Z Respiratory Ventilation, 24-96 Consecutive Hours (ICD-10-PCS; principal; 2020-08-16)
PROC: 0BH17EZ Insertion of Endotracheal Airway into Trachea, Via Natural or Artificial Opening (ICD-10-PCS; 2020-08-16)
PROC: XW033H5 Introduction of Tocilizumab into Peripheral Vein, Percutaneous Approach, New Technology Group 5 (ICD-10-PCS; 2020-08-16)
PROC: 06HM33Z Insertion of Infusion Device into Right Femoral Vein, Percutaneous Approach (ICD-10-PCS; 2020-08-16)
PROC: 5A12012 Performance of Cardiac Output, Single, Manual (ICD-10-PCS; 2020-08-16)
PROC: 3E043XZ Introduction of Vasopressor into Central Vein, Percutaneous Approach (ICD-10-PCS; 2020-08-16)
PROC: 03HY32Z Insertion of Monitoring Device into Upper Artery, Percutaneous Approach (ICD-10-PCS; 2020-08-16)
PROC: 4A133B1 Monitoring of Arterial Pressure, Peripheral, Percutaneous Approach (ICD-10-PCS; 2020-08-16)
PROC: 4A133J1 Monitoring of Arterial Pulse, Peripheral, Percutaneous Approach (ICD-10-PCS; 2020-08-16)
PROC: 5A09357 Assistance with Respiratory Ventilation, Less than 24 Consecutive Hours, Continuous Positive Airway Pressure (ICD-10-PCS; 2020-08-16)
DX: A41.89 Other specified sepsis (principal); U07.1 COVID-19; J96.01 Acute respiratory failure with hypoxia; K72.00 Acute and subacute hepatic failure without coma; J96.02 Acute respiratory failure with hypercapnia; N17.0 Acute kidney failure with tubular necrosis; J12.82 Pneumonia due to coronavirus disease 2019; R65.21 Severe sepsis with septic shock; I21.4 Non-ST elevation (NSTEMI) myocardial infarction; I50.21 Acute systolic (congestive) heart failure; I82.431 Acute embolism and thrombosis of right popliteal vein; G93.1 Anoxic brain damage, not elsewhere classified; E87.4 Mixed disorder of acid-base balance; I47.1 Supraventricular tachycardia; I46.2 Cardiac arrest due to underlying cardiac condition; D69.6 Thrombocytopenia, unspecified; R57.0 Cardiogenic shock; E83.51 Hypocalcemia; E11.40 Type 2 diabetes mellitus with diabetic neuropathy, unspecified; I11.0 Hypertensive heart disease with heart failure; E66.01 Morbid (severe) obesity due to excess calories; M06.9 Rheumatoid arthritis, unspecified; Z79.4 Long term (current) use of insulin; Z66 Do not resuscitate; Z51.5 Encounter for palliative care; E78.5 Hyperlipidemia, unspecified; E87.5 Hyperkalemia; E87.6 Hypokalemia; I25.10 Atherosclerotic heart disease of native coronary artery without angina pectoris; F32.9 Major depressive disorder, single episode, unspecified; Z68.36 Body mass index [BMI] 36.0-36.9, adult; Z79.82 Long term (current) use of aspirin; Z79.02 Long term (current) use of antithrombotics/antiplatelets; Z79.899 Other long term (current) drug therapy; Z95.5 Presence of coronary angioplasty implant and graft; Z87.19 Personal history of other diseases of the digestive system; Z87.891 Personal history of nicotine dependence; Z83.3 Family history of diabetes mellitus; Z82.49 Family history of ischemic heart disease and other diseases of the circulatory system; Z81.8 Family history of other mental and behavioral disorders
CPT/HCPCS: 31500; 36415; 36556; 36600; 71045; 80053; 81001; 82271; 82533; 82805; 83036; 83605; 83615; 83735; 83880; 84132; 84145; 84439; 84443; 84484; 85025; 85379; 85610; 85730; 86140; 87635; 92950; 93005; 93306; 93970; 94002; 94003; 94660; 96365; 96367; 96375; 96376; 99291; 99292